=== PATIENT | female | born 1950 | race Caucasian/White ===

== ENCOUNTER 2020-06-09 12:31 | Outpatient (CLI) | payer MEDICARE, MEDICAID, SELFPAY ==
--- NOTE | ~2020-06-09 | CT_ITS ---
EXAMINATION: CT abdomen pelvis wo con DATE: 06/09/2020 13:04 INDICATION: Over 100 pound weight loss. History of panniculitis. TECHNIQUE: Computed tomography (CT) of the abdomen and pelvis was performed without intravenous contr ast. Automated exposure control and iterative reconstruction technique were employed. Exam dose: 130 4.11 mGy-cm total exam DLP. COMPARISON: 03/13/2018 CT chest abdomen pelvis FINDINGS: There multiple areas of discoid atelectasis and/or scarring at the lung bases. Cardiomegaly. No pericardial or pleural effusion. Coronary artery calcifications. There is surface nodularity of the liver consistent with cirrhosis. There is splenomegaly, the spleen measuring approximately 14.5 cm vertical dimension. No hepatic, splenic or adrenal space-occupying mass lesion is detected. There is evidence of either sludge or very small stones at the dependent aspect of the gallbladder. N o gallbladder wall thickening or pericholecystic fluid or fat stranding. No bile duct or pancreatic d uct dilatation. No pancreatic mass lesion or calcification. There is severe calcification of the abdominal aorta and extensive diffuse calcification of the aorti c branches, suggesting diabetes. No renal mass lesion or urinary tract calculus or hydroureteronephrosis is evident. The urinary bladd er is relatively evacuated, grossly unremarkable. Status post hysterectomy. There is postoperative change of the stomach, presumably related to gastric bypass surgery. Normal appendix. No bowel obstruction, bowel wall thickening, pneumatosis or intraperitoneal free air is detected. No intraperitoneal or retroperitoneal or pelvic mass lesion or adenopathy or ascites. There is subcutaneous fat stranding of the panniculus of the anterior abdominal wall, consistent with clinical indication of diverticulitis. There is extensive muscular atrophy of the chest and abdomina l and pelvic regions as well as proximal lower extremities. Prominent diffuse osteopenia. No suspicious osteolytic or osteoblastic lesions are noted. Degenerative changes of the thoracic and lumbar spine including moderate degenerative disease and mil d retrolisthesis at L1 to, degenerative change at the apophyseal joints with associated grade 1 anter olisthesis at L4-5, severe degenerative disc disease and minimal retrolisthesis at L5-S1. Compression screw and intramedullary frankie of the proximal right femur for intertrochanteric fracture. IMPRESSION: Cardiomegaly Bibasilar discoid atelectasis and/or scarring Cirrhosis, splenomegaly Suggestion of sludge or small stones in the dependent aspect of the gallbladder; consider gallbladder ultrasound for more definitive evaluation of the gallbladder Status post gastric bypass surgery Status post hysterectomy Severe extensive arterial calcifications suggesting diabetes Panniculitis Reviewed, dictated and finalized at [facility]. Reviewed, dictated and finalized at location [facility]. [facility] IMPRESSION: Cardiomegaly Bibasilar discoid atelectasis and/or scarring Cirrhosis, splenomegaly Suggestion of sludge or small stones in the dependent aspect of the gallbladder ; consider gallbladder ultrasound for more definitive evaluation of the gallbla dder Status post gastric bypass surgery Status post hysterectomy Severe extensive arterial calcifications suggesting diabetes Panniculitis
== END 2020-06-09 12:32 | disposition home or self-care (01) ==
PROVIDERS: PCP Family Medicine; Visit Provider Surgery Plastic and Reconstructive Surgery
DX: I51.7 Cardiomegaly (principal); I25.10 Atherosclerotic heart disease of native coronary artery without angina pectoris; R16.1 Splenomegaly, not elsewhere classified; Z90.710 Acquired absence of both cervix and uterus; M85.80 Other specified disorders of bone density and structure, unspecified site; M47.817 Spondylosis without myelopathy or radiculopathy, lumbosacral region; J98.11 Atelectasis; Z98.84 Bariatric surgery status; K74.60 Unspecified cirrhosis of liver
CPT/HCPCS: 74176

== ENCOUNTER 2020-06-30 13:10 | Emergency (ER) | payer MEDICARE, MEDICAID, SELFPAY ==
[2020-06-30] VITALS (17 sets, daily range): BP systolic 115–156; BP diastolic 56–97; PULSE 69–84; RESP 16–18; TEMP 36.1; O2SAT 95–100
--- NOTE | 2020-06-30 16:10 | ED.SKABFB ---
HPI - Skin/Abscess/Foreign Bdy General Chief complaint: Skin/Abscess/Foreign Body Stated complaint: wounds on buttocks Time Seen by Provider: 06/30/20 15:46 Source: patient Mode of arrival: ambulatory Limitations: no limitations History of Present Illness HPI narrative: This is a 69 year old female that presents to the ER for wounds present on the buttocks for the last week. Reports she had been seeing home healthcare for wound on her bottom, but was released recently. Reports her wounds again worsened which prompted her to be seen. Also reports diffuse itchy rash that has been present for the last 3 weeks. No known new medications, soaps or lotions. Denies fever. Related Data Home Medications Medication Instructions Recorded Confirmed albuterol sulfate 2 mg/5 mL oral 2 mg PO TID 08/18/19 syrup allopurinol 100 mg tablet 100 mg PO DAILY 08/18/19 ammonium lactate 12 % lotion 1 applic TOPICAL DAILY 08/18/19 aspirin 325 mg tablet 325 mg PO BID 08/18/19 cyanocobalamin (vitamin B-12) 1,000 mcg PO DAILY 08/18/19 1,000 mcg capsule levothyroxine 150 mcg tablet 150 mcg PO DAILY 08/18/19 midodrine 5 mg tablet 5 mg PO TID 08/18/19 nitroglycerin 0.4 % (w/w) rectal 1 inch RECTAL BID 08/18/19 ointment pantoprazole 40 mg tablet,delayed 40 mg PO QAM 08/18/19 release polyethylene glycol 3350 17 17 gm PO DAILY 08/18/19 gram/dose oral powder ropinirole 2 mg tablet,extended 2 mg PO DAILY 08/18/19 release 24 hr simvastatin 20 mg tablet 20 mg PO DAILY 08/18/19 tramadol 150 mg capsule 150 mg PO DAILY 08/18/19 24h,extended release(25-75) trazodone 150 mg tablet PO 08/18/19 Allergies Allergy/AdvReac Type Severity Reaction Status Date / Time adhesive tape Allergy Unknown BLISTERS Verified 06/30/20 13:25 gabapentin Allergy Unknown restless Verified 06/30/20 13:25 leg latex Allergy Unknown Pruritic Verified 06/30/20 13:25 rash zolpidem Allergy Unknown Other Verified 06/30/20 13:25 Review of Systems Review of Systems: Narrative: CONSTITUTIONAL: Denies fever SKIN: Reports rash and itching. All systems reviewed & are unremarkable except as noted in HPI and below PMFSH Past Medical History Medical History (Updated 06/30/20 @ 18:35 by Shannan Heller PA-C) Anemia Cardiac arrhythmia COPD (chronic obstructive pulmonary disease) Diabetes 5.2 Heart disease Hepatitis History of gout Kidney disease Osteoporosis Skin problem Stroke Thyroid cancer Surgical History Surgical History History of gastric bypass 2015 Status post-operative repair of closed fracture of right hip ORIF December 2018 Trigger finger 06/2019 Dr. Moore Family History Family History Father Diabetes mellitus Hypertension Mother Hypertension Family history of kidney disease Cancer Other Family history of arthritis Family history of malignant neoplasm Social History Social History Smoking status: Former smoker Smoking end date: 06/23/97 Alcohol intake: never Additional living arrangements comments: Granddaughter Rena Deal Additional occupation/education comments: Disabled Gender identity (if verbalized by the patient): Female Exam Narrative: Exam Narrative: GENERAL: Well-appearing, well-nourished, and in no acute distress. HEAD: Normocephalic, atraumatic. EYES: EOMI. CHEST: Clear to auscultation. No respiratory distress. No wheezes rales or rhonchi HEART: Regular rate and rhythm. No murmur heard. Normal peripheral pulses. EXTREMITIES: Normal range of motion. No edema. SKIN: Warm, dry. Scattered red papules on the chest, abdomen, and legs with excoriations. Stage 2 decubitus ulcers present on the buttocks bilaterally; no abnormal drainage or surrounding erythema to suggest infection NEURO: No focal deficits. Erin
[2020-06-30 16:32] LABS: Basophils Percent Auto 0.5 % (0.2-1.2); Eosinophils Absolute Auto 0.3 K/mm3 (0-0.3); Eosinophils Percent Auto 3.9 % (0-4.4); Hematocrit 29.4 % (37.0-47.0); Hemoglobin 9.3 g/dL (12.0-15.0); Immature Granulocyte Absolute 0.03 K/mm3 (0.00-0.031); Immature Granulocyte Percent A 0.4 % (0-0.5); Lymphocytes Absolute Auto 0.67 K/mm3 (0.9-3.2); Lymphocytes Percent Auto 8.9 % (18.3-44.2); Mean Corpuscular HGB Conc 31.6 g/dl (32-36); Mean Corpuscular Volume 104.3 fl (80-100); Mean Platelet Volume 10.2 fl (7.4-10.4); Monocytes Absolute Auto 0.5 K/mm3 (0.1-0.6); Monocytes Percent Auto 6.1 % (2.6-8.5); Neutrophils Percent Auto 80.2 % (45.5-73.1); Platelet Count Result 107 k/mm3 (150-375); Red Blood Count 2.82 M/mm3 (4.2-5.4); Red Cell Distribution Width 14.3 % (11.5-14.5); White Blood Count 7.5 K/mm3 (4.5-10.0)
[2020-06-30 16:46] LABS: Anion Gap 6 mmol/L (8-16); Blood Urea Nitrogen 23 mg/dL (7-17); CRP 8.3 mg/dL (<1.0); Calcium 7.8 mg/dL (8.4-10.2); Carbon Dioxide 34 mmol/L (22-30); Chloride 97 mmol/L (98-107); Estimated CRCL calculation 17 ml/min; Estimated Glomerular Filt Rate 17; Glucose 299 mg/dL (65-105); Phosphorus 4.6 mg/dL (2.5-4.5); Potassium 3.6 mmol/L (3.4-5.0); Sodium 137 mmol/L (137-145)
[2020-06-30] MEDS: diphenhydrAMINE HCl CAP 25 MG CAPSULE PO (17:43)
[2020-06-30] MEDS: ACETAMINOPHEN 500 MG TABLET 1000 MG PO (17:43)
--- NOTE | 2020-06-30 18:03 | PC.NURSE ---
Spoke with [facility] at [facility] request for x4 meplex dressing for pt to go home with. awaiting their arrival from [facility].
== END 2020-06-30 18:48 | disposition home or self-care (01) ==
PROVIDERS: Physician Assistant; Emergency Provider Emergency Medicine; PCP Family Medicine
DX: L89.322 Pressure ulcer of left buttock, stage 2 (principal); L89.312 Pressure ulcer of right buttock, stage 2; R21 Rash and other nonspecific skin eruption; D64.9 Anemia, unspecified; J44.9 Chronic obstructive pulmonary disease, unspecified; E11.22 Type 2 diabetes mellitus with diabetic chronic kidney disease; N18.6 End stage renal disease; M10.9 Gout, unspecified; M81.0 Age-related osteoporosis without current pathological fracture; Z86.73 Personal history of transient ischemic attack (TIA), and cerebral infarction without residual deficits; Z85.850 Personal history of malignant neoplasm of thyroid; I51.9 Heart disease, unspecified; Z79.82 Long term (current) use of aspirin; Z98.84 Bariatric surgery status; Z87.891 Personal history of nicotine dependence
CPT/HCPCS: 36415; 80048; 84100; 85025; 86140; 99283; A9270

== ENCOUNTER 2020-09-21 18:35 | Emergency (ER) | payer MEDICARE, MEDICAID, SELFPAY ==
[2020-09-21] VITALS (12 sets, daily range): BP systolic 145–189; BP diastolic 63–73; PULSE 78–85; RESP 18–20; TEMP 36.9; O2SAT 83–100
--- NOTE | ~2020-09-21 | XR_ITS ---
EXAMINATION: XR sacrum coccyx min 2V DATE: 09/21/2020 19:34 INDICATION: Tailbone pain. Fall. TECHNIQUE: 3 views of the sacrum and coccyx were obtained. COMPARISON: None. FINDINGS: There is 4 mm anterolisthesis of L4 on L5. There is severe lower lumbar spondylosis. No fra cture. There is internal fixation of right femur. There are suture anchors in right parasymphyseal pu bis. IMPRESSION: 1. No fracture. Reviewed, dictated and finalized at location [facility]. IMPRESSION: 1. No fracture.
--- NOTE | ~2020-09-21 | XR_ITS ---
EXAMINATION: XR shoulder RT min 2V DATE: 09/21/2020 19:34 INDICATION: Right shoulder weakness. TECHNIQUE: 4 views of right shoulder were obtained. COMPARISON: None. FINDINGS: There is superior subluxation of humeral head with respect to glenoid with narrowing of the subacromial space and remodeling of the acromion, consistent with chronic rotator cuff tear with cuf f arthropathy. There are likely changes of distal clavicle resection. There is moderate glenohumeral joint osteoarthritis, but the joint is not well profiled. IMPRESSION: 1. Chronic rotator cuff tear with cuff arthropathy. 2. Moderate glenohumeral joint osteoarthritis. Reviewed, dictated and finalized at location [facility].
--- NOTE | ~2020-09-21 | CT_ITS ---
EXAMINATION: CT brain wo con DATE: 09/21/2020 20:50 INDICATION: Headache. TECHNIQUE: Computed tomography (CT) of the head was performed without intravenous contrast. The mA wa s adjusted according to patient size. Iterative reconstruction technique was employed. The dose-lengt h product was 605.33 mGy-cm. COMPARISON: None FINDINGS: There are scattered areas of low attenuation in the cerebral white matter. There is no intr acranial hemorrhage, acute infarction, or abnormal intracranial mass lesion. The ventricles are unique l in size. The paranasal sinuses are clear. The orbits are normal. The mastoid air cells are normal. IMPRESSION: 1. Moderate nonspecific cerebral white matter disease, which likely represents chronic small vessel i schemic disease. Reviewed, dictated and finalized at location [facility]. IMPRESSION: 1. Moderate nonspecific cerebral white matter disease, which likely represents chronic small vessel ischemic disease.
--- NOTE | ~2020-09-21 | XR_ITS ---
EXAMINATION: XR foot LT min 3V DATE: 09/21/2020 19:34 INDICATION: Left foot pain. TECHNIQUE: 4 views of left foot were obtained. COMPARISON: None. FINDINGS: Bone alignment is normal. No fracture. There is diffuse osteopenia. There is mild osteoarth ritis of some the interphalangeal joints. There are enthesophytes at the posterior and plantar aspect s of calcaneal tuberosity. IMPRESSION: 1. Mild polyarticular osteoarthritis. Reviewed, dictated and finalized at location [facility].
--- NOTE | ~2020-09-21 | XR_ITS ---
EXAMINATION: XR lumbar spine 2-3V DATE: 09/21/2020 19:33 INDICATION: Low back pain. TECHNIQUE: 3 views of lumbar spine were obtained. COMPARISON: Lumbar spine radiographs 06/29/10 FINDINGS: There is 4 degrees levocurvature of thoracolumbar spine. There is 4 mm anterolisthesis of L 4 on L5. Vertebral body heights are normal. There is severely decreased disc height at L5-S1 with end plate remodeling. There is severe facet joint osteoarthritis in lower lumbar spine. Surgical clips in the right upper quadrant are likely from cholecystectomy. There is internal fixation of right femur. IMPRESSION: 1. Severe lower lumbar spondylosis. Reviewed, dictated and finalized at location [facility].
--- NOTE | ~2020-09-21 | XR_ITS ---
EXAMINATION: XR hip LT 2V w AP pelvis DATE: 09/21/2020 19:34 INDICATION: Left hip pain. TECHNIQUE: An anteroposterior view of the pelvis and 2 views of left hip were obtained. COMPARISON: None. FINDINGS: Bone alignment is normal. No acute fracture. There is an old healed fracture of proximal ri ght femur with internal fixation with antegrade intramedullary frankie, femoral head/neck screw, and cabl es. There is diffuse osteopenia. There is moderate osteoarthritis of the hips. There are suture ancho rs near right parasymphyseal pubis. IMPRESSION: 1. Moderate osteoarthritis of the hips. Reviewed, dictated and finalized at location [facility].
--- NOTE | 2020-09-21 20:33 | ED.GENADULT ---
HPI - General Adult General Chief complaint: Extremity Injury, Lower Stated complaint: FALL Time Seen by Provider: 09/21/20 19:02 Source: patient and EMS Mode of arrival: EMS Limitations: no limitations History of Present Illness HPI narrative: Patient 70 years old white female had a fall on her porch early this morning complaining of right shoulder, left hip and tailbone pain. Patient report hitting her head on the floor. Patient denies loss of consciousness. Patient denies any fever, chills, nausea, vomiting, chest pain, shortness of breath, abdominal pain or back pain. Related Data Home Medications Medication Instructions Recorded Confirmed albuterol sulfate 2 mg/5 mL oral 2 mg PO TID 08/18/19 syrup allopurinol 100 mg tablet 100 mg PO DAILY 08/18/19 ammonium lactate 12 % lotion 1 applic TOPICAL DAILY 08/18/19 aspirin 325 mg tablet 325 mg PO BID 08/18/19 cyanocobalamin (vitamin B-12) 1,000 mcg PO DAILY 08/18/19 1,000 mcg capsule levothyroxine 150 mcg tablet 150 mcg PO DAILY 08/18/19 midodrine 5 mg tablet 5 mg PO TID 08/18/19 nitroglycerin 0.4 % (w/w) rectal 1 inch RECTAL BID 08/18/19 ointment pantoprazole 40 mg tablet,delayed 40 mg PO QAM 08/18/19 release polyethylene glycol 3350 17 17 gm PO DAILY 08/18/19 gram/dose oral powder ropinirole 2 mg tablet,extended 2 mg PO DAILY 08/18/19 release 24 hr simvastatin 20 mg tablet 20 mg PO DAILY 08/18/19 tramadol 150 mg capsule 150 mg PO DAILY 08/18/19 24h,extended release(25-75) trazodone 150 mg tablet PO 08/18/19 Allergies Allergy/AdvReac Type Severity Reaction Status Date / Time adhesive tape Allergy Unknown BLISTERS Verified 06/30/20 13:25 gabapentin Allergy Unknown restless Verified 06/30/20 13:25 leg latex Allergy Unknown Pruritic Verified 06/30/20 13:25 rash zolpidem Allergy Unknown Other Verified 06/30/20 13:25 Review of Systems Review of Systems: Narrative: CONSTITUTIONAL: Denies fever, chills, or sweats. EYES: Denies visual changes, redness, or discharge. ENT: Denies rhinorrhea, congestion, sore throat, or otalgia. CARDIOVASCULAR: Denies chest pain, palpitations, or edema. RESPIRATORY: Denies cough or dyspnea. GASTROINTESTINAL: Denies abdominal pain, nausea, vomiting, or diarrhea. GENITOURINARY: Denies dysuria or hematuria. SKIN: Denies rash or itching. MUSCULOSKELETAL: Denies back pain, joint pain, or myalgia. NEUROLOGIC: Denies headache, numbness, or weakness. PSYCHIATRIC: Denies anxiety or depression. [facility] Past Medical History Medical History Anemia Cardiac arrhythmia COPD (chronic obstructive pulmonary disease) Diabetes 5.2 Heart disease Hepatitis History of gout Kidney disease Osteoporosis Skin problem Stroke Thyroid cancer Surgical History Surgical History History of gastric bypass 2015 Status post-operative repair of closed fracture of right hip ORIF December 2018 Trigger finger 06/2019 Dr. Moore Family History Family History Father Diabetes mellitus Hypertension Mother Hypertension Family history of kidney disease Cancer Other Family history of arthritis Family history of malignant neoplasm Social History Social History Smoking status: Former smoker Smoking end date: 06/23/97 Alcohol intake: never Additional living arrangements comments: Granddaughter Rena Deal Additional occupation/education comments: Disabled Gender identity (if verbalized by the patient): Female Exam Narrative: Exam Narrative: General appearance: Well-developed, well-nourished Skin: Normal color Head: Normocephalic, nontraumatic Eyes: Clear conjunctiva ENT: Oropharynx normal, ears normal, nose normal Neck: Supple, nontender Chest and respiratory: Airway patent, no respir
--- NOTE | 2020-09-21 22:12 | PC.NURSE ---
ems transport time is 0200
--- NOTE | 2020-09-21 22:15 | PC.NURSE ---
made contact with [facility] to transfer patient home. company declined. made contact with [employer]. eta [phone]
[2020-09-22 00:01] VITALS: BP 169/7; PULSE 77; RESP 18; O2SAT 97
--- NOTE | 2020-09-22 01:06 | PC.NURSE ---
patient found transportation home. choudhury has been cancelled
[2020-09-22 01:36] VITALS: BP 167/70; PULSE 72; RESP 18; O2SAT 96
== END 2020-09-22 01:15 | disposition home or self-care (01) ==
PROVIDERS: Emergency Provider Emergency Medicine; PCP Family Medicine
DX: S40.011A Contusion of right shoulder, initial encounter (principal); J44.9 Chronic obstructive pulmonary disease, unspecified; M10.9 Gout, unspecified; N28.9 Disorder of kidney and ureter, unspecified; M81.0 Age-related osteoporosis without current pathological fracture; I51.9 Heart disease, unspecified; E11.9 Type 2 diabetes mellitus without complications; Z85.850 Personal history of malignant neoplasm of thyroid; Z86.73 Personal history of transient ischemic attack (TIA), and cerebral infarction without residual deficits; Z79.82 Long term (current) use of aspirin; M47.816 Spondylosis without myelopathy or radiculopathy, lumbar region; M75.101 Unspecified rotator cuff tear or rupture of right shoulder, not specified as traumatic; M19.011 Primary osteoarthritis, right shoulder; M19.072 Primary osteoarthritis, left ankle and foot; M16.0 Bilateral primary osteoarthritis of hip; W19.XXXA Unspecified fall, initial encounter
CPT/HCPCS: 70450; 72100; 72220; 73030; 73502; 73630; 99284

== ENCOUNTER 2021-02-10 16:34 | Inpatient (IN) | payer MEDICARE, MEDICAID, SELFPAY ==
[2021-02-10] VITALS (10 sets, daily range): BP systolic 108–149; BP diastolic 32–101; PULSE 72–81; RESP 18–24; TEMP 36.1–36.8; O2SAT 92–100; BMI 40.4
--- NOTE | ~2021-02-10 | XR_ITS ---
EXAMINATION: XR chest 2V DATE: 02/10/2021 17:10 INDICATION: Substernal chest pain radiating to the right arm. TECHNIQUE: Frontal and lateral views of the chest were obtained. COMPARISON: Chest 2 views 07/01/2018, CT abdomen and pelvis 06/09/2020 FINDINGS: There is a small right pleural effusion. No pneumothorax. Cardiomegaly is noted. There is a left subclavian central venous catheter with tip in superior cavoatrial junction. IMPRESSION: 1. Small right pleural effusion. 2. Cardiomegaly. Reviewed, dictated and finalized at location A.
--- NOTE | 2021-02-10 16:58 | ECG_ITS ---
Measurements Intervals Tiro Rate: 82 P: 43 GA: 208 QRS: -28 QRSD: 101 T: 73 QT: 391 QTc: 457 Interpretive Statements SINUS RHYTHM WITH FIRST DEGREE AV BLOCK POOR R WAVE PROGRESSION, ANTERIOR LEADS BORDERLINE ST-T WAVE ABNORMALITY- HIGH LATERAL LEADS BASELINE ARTIFACT- I, II ,III, AVR, AVL, AVF, V2-V6 ABNORMAL ECG Electronically Signed On 02-11-2021 13:22:32 CDT by Zoran Drake D.O.
[2021-02-10 17:24] LABS: Basophils Absolute Auto 0.1 K/mm3 (0.0-0.1); Basophils Percent Auto 0.6 % (0.2-1.2); Eosinophils Absolute Auto 0.4 K/mm3 (0-0.3); Eosinophils Percent Auto 4.5 % (0-4.4); Hematocrit 34.4 % (37.0-47.0); Hemoglobin 9.9 g/dL (12.0-15.0); Immature Granulocyte Absolute 0.04 K/mm3 (0.00-0.031); Immature Granulocyte Percent A 0.5 % (0-0.5); Immature Platelet Fraction Pct 8.3 % (0.9-11.2); Lymphocytes Percent Auto 11.2 % (18.3-44.2); Mean Corpuscular HGB Conc 28.8 g/dl (32-36); Mean Corpuscular Hemoglobin 32.6 pg (26-34); Mean Corpuscular Volume 113.2 fl (80-100); Mean Platelet Volume 12.3 fl (7.4-10.4); Monocytes Absolute Auto 0.5 K/mm3 (0.1-0.6); Monocytes Percent Auto 6.2 % (2.6-8.5); Neutrophils Absolute Auto 6.2 K/mm3 (1.3-6.7); Platelet Count Result 107 k/mm3 (150-375); Red Blood Count 3.04 M/mm3 (4.2-5.4); Red Cell Distribution Width 15.6 % (11.5-14.5); White Blood Count 8.1 K/mm3 (4.5-10.0)
[2021-02-10 17:33] LABS: INR 1.2; Prothrombin Time 14.7 Seconds (11.1-14.7)
[2021-02-10 17:34] LABS: Partial Thromboplastin Time 36.8 SECONDS (22.3-36.8)
[2021-02-10 17:35] LABS: Anion Gap 11 mmol/L (8-16); Blood Urea Nitrogen 33 mg/dL (7-17); Carbon Dioxide 22 mmol/L (22-30); Chloride 108 mmol/L (98-107); Estimated CRCL calculation 11 ml/min; Estimated Glomerular Filt Rate 9; Glucose 161 mg/dL (65-110); Potassium 4.6 mmol/L (3.4-5.0); Sodium 141 mmol/L (137-145)
[2021-02-10] MEDS: ASPIRIN 81 MG CHEWABLE TABLET 324 MG PO (17:37)
--- NOTE | 2021-02-10 17:41 | ED.CHESTPAIN ---
HPI - Chest Pain General Chief Complaint: Chest Pain Stated Complaint: CP Time Seen by Provider: 02/10/21 17:01 History of Present Illness HPI narrative: 70 yo female with multiple medical problems including ESRD on dialysis, DM, htn, gout, depression, anxiety presents to the ED c/o chest pain. She reports sudden severe substernal pain at about 1545. This was associated with right arm heaviness. The pain got better with nitroglycerine. She has never had this pain before. Related Data Home Medications Medication Instructions Recorded Confirmed albuterol sulfate 2 mg/5 mL oral 2 mg PO TID 08/18/19 10/30/20 syrup allopurinol 100 mg tablet 100 mg PO DAILY 08/18/19 10/30/20 ammonium lactate 12 % lotion 1 applic TOPICAL DAILY 08/18/19 10/30/20 aspirin 325 mg tablet 325 mg PO BID 08/18/19 10/30/20 cyanocobalamin (vitamin B-12) 1,000 mcg PO DAILY 08/18/19 10/30/20 1,000 mcg capsule pantoprazole 40 mg tablet,delayed 40 mg PO QAM 08/18/19 10/30/20 release simvastatin 20 mg tablet 20 mg PO DAILY 08/18/19 10/30/20 trazodone 150 mg tablet PO 08/18/19 10/30/20 activated charcoal 260 mg capsule 520 mg PO ONCE 10/25/20 10/30/20 alprazolam 0.25 mg tablet 0.25 mg PO DAILY 10/25/20 10/30/20 diphenhydramine HCl 25 mg capsule 25 mg PO Q6H 10/25/20 10/30/20 econazole 1 % topical cream 1 applic TOPICAL BID 10/25/20 10/30/20 famotidine 20 mg tablet 20 mg PO DAILY 10/25/20 10/30/20 fluocinonide 0.05 % topical 1 applic TOPICAL BID 10/25/20 10/30/20 ointment insulin glargine 100 unit/mL 8 unit SUBCUT QPM ml 10/25/20 10/30/20 subcutaneous solution midodrine 5 mg tablet 5 mg PO TID 10/25/20 10/30/20 ondansetron HCl 4 mg tablet 4 mg PO Q8H 10/25/20 10/30/20 venlafaxine 75 mg capsule,extended 75 mg PO DAILY 10/25/20 10/30/20 release 24 hr ascorbic acid (vitamin C) 100 mg PO DAILY 02/10/21 calcium acetate(phosphat bind) mg 02/10/21 cholecalciferol (vitamin D3) 25 mcg PO DAILY 02/10/21 [Vitamin D3] doxycycline hyclate 02/10/21 levothyroxine 02/10/21 linagliptin [Tradjenta] mg 02/10/21 nitroglycerin 0.4 mg SUBLINGUAL ONCE 02/10/21 nystatin TOPICAL 02/10/21 omeprazole 40 mg PO DAILY 02/10/21 phenyleph-shark [id number] 1 applic RECTAL BID 02/10/21 [Preparation H] polyethylene glycol 3350 [Miralax] 17 g PO DAILY 02/10/21 pregabalin 02/10/21 ropinirole [Requip] See Rx Instructions .ROUTE .COMPLEX 02/10/21 simethicone 180 mg PO BID 02/10/21 Allergies Allergy/AdvReac Type Severity Reaction Status Date / Time adhesive tape Allergy Unknown BLISTERS Verified 02/10/21 18:58 gabapentin Allergy Unknown restless Verified 02/10/21 18:58 leg latex Allergy Unknown Pruritic Verified 02/10/21 18:58 rash zolpidem Allergy Unknown Other Verified 02/10/21 18:58 Review of Systems Review of Systems: All systems reviewed & are unremarkable except as noted in HPI and below Constitutional: Constitutional: Denies fever(s) Cardiovascular: Cardiovascular: Reports chest pain Respiratory: Respiratory: Reports dyspnea Gastrointestinal: Gastrointestinal: Denies abdominal pain Genitourinary: Genitourinary: Reports no additional female genitourinary complaints Musculoskeletal: Musculoskeletal: Reports back pain Neurologic: Reports weakness PMFSH Past Medical History Medical History Anemia Cardiac arrhythmia COPD (chronic obstructive pulmonary disease) Diabetes 5.2 Diabetic neuropathy Heart disease Hepatitis History of gout Kidney disease Osteoporosis Skin problem Stroke Thyroid cancer Surgical History Surgical History History of gastric bypass 2015 Status post-operative repair of closed fracture of right hip ORIF December 2018 Trigger finger 06/2019 Dr. Moore Family History Family History Father Diabetes mellitus Hypertension Mother
[2021-02-10 17:49] LABS: Troponin I 0.036 ng/mL (0.000-0.034)
[2021-02-10 19:54] LABS: Glucose Point of Care 134 mg/dl (65-105)
[2021-02-10 20:20] LABS: Troponin I 0.222 ng/mL (0.000-0.034)
--- NOTE | 2021-02-10 20:20 | ECG_ITS ---
Rate 73 NH 220 QRSd 93 QT 389 QTc 431 --Mccall-- P 52 QRS -27 T 69 SINUS RHYTHM WITH FIRST DEGREE AV BLOCK LOW QRS VOLTAGE IN PRECORDIAL LEADS BORDERLINE R WAVE PROGRESSION, ANTERIOR LEADS BASELINE ARTIFACT- II, III, AVR, AVF, V2-V6 ABNORMAL ECG Electronically Signed On 02-11-2021 13:22:40 CDT by Zoran DIXON
--- NOTE | 2021-02-10 21:02 | PM.IMHP ---
H&P: HPI History of Present Illness Date/Time: 02/10/21 21:02 Chief Complaint: Chest pain Narrative: This is a 70-year-old female with past medical history significant for end-stage renal disease on hemodialysis Friday, gout, type 2 diabetes mellitus, chronic panniculitis, restless leg syndrome dyslipidemia: Chronic pain, depression, diabetic peripheral neuropathy, osteoporosis, COPD. Patient presented to the emergency room due to chest pain localized to the right side of the chest with radiation to the shoulder and jaw on the right side patient called EMS she was brought by ambulance to the emergency room states that the pain lasted for roughly half hour, describes it as someone just jumped on my chest she denies any syncope near syncope, diaphoresis, has had some nausea but no vomiting, no abdominal pain, no fevers ,no rigors, no chills ,no cough, no sputum production. She has been compliant with her dialysis treatments last 1 was this last Friday. Preliminary workup has been significant for slightly elevation of troponin. Review of Systems Review of Systems: Chest pain Constitutional: Constitutional: Denies chills, Denies fever(s) and Denies malaise Eyes: Eyes: Denies change in vision ENT: Denies dysphagia, Denies nasal congestion, Denies nasal discharge, Denies nasal obstruction and Denies odynophagia Cardiovascular: Cardiovascular: Reports chest pain, Reports radiating jaw, neck or arm pain and Denies palpitations Respiratory: Respiratory: Denies cough Gastrointestinal: Gastrointestinal: Denies abdominal pain, Denies diarrhea, Reports nausea and Denies vomiting Genitourinary: Genitourinary: Reports no additional female genitourinary complaints Musculoskeletal: Musculoskeletal: Reports muscle weakness Integumentary/Breasts: Skin/Breast: Reports skin ulcer Comments: Left lower extremity Neurologic: Denies focal weakness and Denies Sensory deficit (Neuro) Psychiatric: Psychiatric: Reports no additional psychiatric complaints Endocrine: Endocrine: Reports no additional endocrine complaints Hematologic/Lymphatic: Hematologic/Lymphatic: Reports no additional hematologic/lymphatic complaints Allergic/Immunologic: Allergic/Immunologic: Reports no additional allergic/immunologic complaints [facility] Past Medical History Medical History (Updated 02/10/21 @ 21:21 by Henri Oh MD) Anemia Cardiac arrhythmia COPD (chronic obstructive pulmonary disease) Diabetes 5.2 Diabetic neuropathy Heart disease Hepatitis History of gout Kidney disease Osteoporosis Skin problem Stroke Thyroid cancer Surgical History Surgical History History of gastric bypass 2015 Status post-operative repair of closed fracture of right hip ORIF December 2018 Trigger finger 06/2019 Dr. Moore Family History Family History Father Diabetes mellitus Hypertension Mother Hypertension Family history of kidney disease Cancer Other Family history of arthritis Family history of malignant neoplasm Social History Social History Smoking end date: 06/23/97 Alcohol intake: never Additional living arrangements comments: Granddaughter Rena Deal Additional occupation/education comments: Disabled Gender identity (if verbalized by the patient): Female Meds Home Medications and Allergies Home Medications Medication Instructions Recorded Confirmed Type albuterol sulfate 2 mg/5 mL oral 2 mg PO TID 08/18/19 10/30/20 History syrup allopurinol 100 mg tablet 100 mg PO DAILY 08/18/19 10/30/20 History ammonium lactate 12 % lotion 1 applic TOPICAL DAILY 08/18/19 10/30/20 History aspirin 325 mg tablet 325 mg PO BID 08/18/19 10/30/20 History cyanocobalamin (vitamin B-12) 1,000 mcg PO DAILY 08/18/19 10/30/20 History 1,000 mcg caps
[2021-02-10] MEDS: NITROGLYCERIN OINTMENT 1 INCH DOSE 0.5 INCH TRANSDERM (21:10)
--- NOTE | 2021-02-10 22:25 | PC.NURSE ---
This patient, Yolanda Conway, was admitted to IMU Room 214-01 on 02/10/21 at 2200. Patient/family oriented to hospital policies and general routines including ID bracelet, bed and alarms, visiting hours, pain management, procedures, bathroom and other care routines, personal items, smoking policy, room service/diet, and visiting hours. Information on how to activate the Rapid Response Team has been discussed. Patient/Family are encouraged to report perceived risks to care and to ask questions if they do not understand what they are told or what they should do.
[2021-02-11] VITALS (28 sets, daily range): BP systolic 105–151; BP diastolic 45–91; PULSE 72–87; RESP 14–29; TEMP 36.1–36.4; O2SAT 90–100
[2021-02-11] MEDS: rOPINIRole HCL 1 MG TABLET 2 MG BY MOUTH (00:52)
[2021-02-11] MEDS: traZODone HCL 50 MG TABLET 100 MG PO (00:52)
[2021-02-11] MEDS: traMADol HCL (*CRX) 50 MG TABLET PO (00:52)
[2021-02-11] MEDS: NITROGLYCERIN OINTMENT 1 INCH DOSE 0.5 INCH TRANSDERM (00:53)
[2021-02-11] MEDS: NITROGLYCERIN SL 0.4 MG TABLET SUBLINGUAL ×2 (04:13→04:55)
[2021-02-11] MEDS: HEPARIN SOD/D5W 100 UNITS/ML 25,000 UNITS/250 ML BAG 8 UNITS IV CONT (04:19)
[2021-02-11] MEDS: HEPARIN SODIUM 5,000 UNITS/ML VIAL 4000 UNITS IV PUSH (04:19)
[2021-02-11 04:56] LABS: Glucose Point of Care 110 mg/dl (65-105)
[2021-02-11] MEDS: ONDANSETRON HCL ODT 4 MG TABLET PO (04:56)
[2021-02-11] MEDS: NITROGLYCERIN OINTMENT 1 INCH DOSE TRANSDERM (05:02)
[2021-02-11] MEDS: LEVOTHYROXINE SODIUM 100 MCG TABLET PO (06:07)
[2021-02-11] MEDS: LEVOTHYROXINE SODIUM 75 MCG TABLET PO (06:07)
[2021-02-11 06:10] LABS: Basophils Absolute Auto 0.1 K/mm3 (0.0-0.1); Basophils Percent Auto 0.6 % (0.2-1.2); Eosinophils Absolute Auto 0.5 K/mm3 (0-0.3); Hematocrit 31.4 % (37.0-47.0); Hemoglobin 9.3 g/dL (12.0-15.0); Immature Granulocyte Absolute 0.05 K/mm3 (0.00-0.031); Immature Granulocyte Percent A 0.5 % (0-0.5); Lymphocytes Absolute Auto 1.27 K/mm3 (0.9-3.2); Mean Corpuscular HGB Conc 29.6 g/dl (32-36); Mean Corpuscular Hemoglobin 32.4 pg (26-34); Mean Corpuscular Volume 109.4 fl (80-100); Monocytes Absolute Auto 0.6 K/mm3 (0.1-0.6); Monocytes Percent Auto 5.9 % (2.6-8.5); Neutrophils Absolute Auto 7.3 K/mm3 (1.3-6.7); Platelet Count Result 107 k/mm3 (150-375); Red Blood Count 2.87 M/mm3 (4.2-5.4); Red Cell Distribution Width 15.4 % (11.5-14.5); White Blood Count 9.8 K/mm3 (4.5-10.0)
[2021-02-11 06:16] LABS: INR 1.4; Prothrombin Time 16.6 Seconds (11.1-14.7)
[2021-02-11 07:00] LABS: Partial Thromboplastin Time > 200.0 SECONDS (22.3-36.8)
[2021-02-11 07:21] LABS: Anisocytosis 2+ (NORMAL); Microcytosis 1+ (NORMAL)
[2021-02-11 07:55] LABS: Glucose Point of Care 112 mg/dl (65-105)
[2021-02-11] MEDS: PREGABALIN (*CRX) 75 MG CAPSULE 150 MG BY MOUTH (08:24)
[2021-02-11] MEDS: CHOLECALCIFEROL 1,000 UNITS TABLET 1000 UNITS PO (08:24)
[2021-02-11] MEDS: PANTOPRAZOLE 40 MG TABLET PO (08:25)
[2021-02-11] MEDS: CALCIUM ACETATE 667 MG TABLET PO ×2 (08:25→16:14)
[2021-02-11] MEDS: allopurinoL 100 MG TABLET PO (08:25)
[2021-02-11] MEDS: ASCORBIC ACID 125 MG TABLET PO (08:25)
[2021-02-11] MEDS: VENLAFAXINE HCL XR 75 MG CAP.ER.24H PO (08:25)
[2021-02-11] MEDS: ASPIRIN 81 MG ENTERIC TABLET PO (08:25)
[2021-02-11] MEDS: MICONAZOLE NITRATE 2% CREAM 30 GM TUBE 1 APPLIC TOPICAL ×2 (08:26→16:15)
[2021-02-11] MEDS: TOLNAFTATE 1% POWDER 45 GM BTL 1 APPLIC TOPICAL ×2 (08:26→16:15)
[2021-02-11] MEDS: MIDODRINE HCL 2.5 MG TABLET 5 MG PO (08:26)
--- NOTE | 2021-02-11 08:49 | PM.IMPN ---
Progress Note: A&P Assessment and Plan (1) Non-ST elevation [place] (NSTEMI): Code(s): I21.4 - Non-ST elevation (NSTEMI) myocardial infarction Status: Acute Assessment and Plan: Noted rising troponin Heparin infusion Nitroglycerin for pain Cardiology evaluated this morning, appreciate help, plan for coronary angiography today (2) End-stage renal disease on hemodialysis: Code(s): N18.6 - End stage renal disease; Z99.2 - Dependence on renal dialysis Status: Acute Assessment and Plan: Dialyzes Friday and Friday Nephrology consult, appreciate help Left IJ tunneled dialysis catheter is her access recently awaiting graft Low BP on HD with midodrine needed (3) Thrombosis of arteriovenous graft due to arteriovenous access device for hemodialysis: Code(s): T82.868A - Thrombosis due to vascular prosthetic devices, implants and grafts, initial encounter Status: Acute Assessment and Plan: Primary site was on the left forearm which has failed Right arm new graft Tunneled dialysis catheter is her current access (4) Diabetic neuropathy: Code(s): E11.40 - Type 2 diabetes mellitus with diabetic neuropathy, unspecified Status: Inactive Assessment and Plan: Continue gabapentin (5) Panniculitis: Code(s): M79.3 - Panniculitis, unspecified Status: Acute Assessment and Plan: Local care (6) COPD (chronic obstructive pulmonary disease): Code(s): J44.9 - Chronic obstructive pulmonary disease, unspecified Status: Acute Assessment and Plan: Not actively wheezing (7) Wheelchair dependence: Code(s): Z99.3 - Dependence on wheelchair Status: Acute Assessment and Plan: Patient has home health with physical therapy (8) Chronic pain: Code(s): G89.29 - Other chronic pain Status: Acute Assessment and Plan: Continue home meds (9) T2DM (type 2 diabetes mellitus): Code(s): E11.9 - Type 2 diabetes mellitus without complications Status: Acute Assessment and Plan: Accu-Cheks AC and HS Continue Lantus Insulin sliding scale Subjective Date/time seen: 02/11/21 08:49 She did have recurrence of chest pain overnight and given nitro which helped the pain. this AM she continues to have intermittent retrosternal chest pain at rest. She is hemodynamically stable. Afebrile. Review of Systems Review of Systems: All systems reviewed & are unremarkable except as noted in HPI and below Exam Narrative: Gen: Alert, NAD Abd: Soft, NT, ND Heart: RRR Lungs: CTAB Ext: 1+ bilateral lower extremity edema/lymphedema Left IJ dialysis perm cath Objective Data Vital Signs Vital Signs: Vital Signs - 24 hr 02/10/21 16:41 02/10/21 16:59 02/10/21 17:30 Temperature 97.3 F L 97.8 F Pulse Rate 80 75 75 Respiratory Rate 18 22 H Blood Pressure 112/63 108/62 Pulse Oximetry 100 100 99 02/10/21 18:30 02/10/21 19:30 02/10/21 20:30 Temperature 98.1 F Pulse Rate 72 76 79 Respiratory Rate 19 22 H 24 H Blood Pressure 130/54 L 128/56 L 121/68 Pulse Oximetry 96 96 98 02/10/21 21:20 02/10/21 21:48 02/10/21 22:00 Temperature 97.3 F L 98.3 F 97 F L Pulse Rate 73 78 74 Respiratory Rate 19 19 18 Blood Pressure 127/60 122/101 H 149/32 H Pulse Oximetry 98 97 02/10/21 23:58 02/11/21 00:00 02/11/21 02:00 Temperature 97.7 F Pulse Rate 81 79 75 Respiratory Rate 20 Blood Pressure 139/55 L Pulse Oximetry 92 02/11/21 03:43 02/11/21 04:00 02/11/21 06:00 Temperature 97.3 F L Pulse Rate 77 74 75 Respiratory Rate 16 Blood Pressure 151/62 H Pulse Oximetry 98 02/11/21 07:24 Temperature 96.9 F L Pulse Rate 77 Respiratory Rate 16 Blood Pressure 126/50 L Pulse Oximetry 98 Meds/Results Medications: Active Medications Generic Name Dose Route Start Last Admin Trade Name Freq PRN Reason Stop Dose Admin Albuterol 2 puff 02/10/21 23:33 [place]
--- NOTE | 2021-02-11 08:53 | PM.CNCAR ---
Assessment and Plan Additional Plan NSTEMI, persistent chest pain, despite NTG patch, plan [facility] today, ASA, Statin, ticagrelor, History of Present Illness History of Present Illness Consult date/time: 02/11/21 08:53 Consult reason: chest pain Reason For Visit: Chest pain Narrative: patient presented with acute chest pain pressure like started yesterday afternoon and has been sever recurrent, radiates to left arm, improved with NTG SL for few minutes then recurrent. SHe had Hx of CAD and prior PCi in [facility] in 2004. She had Hx of PVD and f/u with Dr Kenny in heart and vascular services. She ESRD on HD. Review of Systems Review of Systems: All systems reviewed & are unremarkable except as noted in HPI and below PMFSH Past Medical History Medical History (Updated 02/10/21 @ 21:21 by Henri Oh MD) Anemia Cardiac arrhythmia COPD (chronic obstructive pulmonary disease) Diabetes 5.2 Diabetic neuropathy Heart disease Hepatitis History of gout Kidney disease Osteoporosis Skin problem Stroke Thyroid cancer Surgical History Surgical History History of gastric bypass 2015 Status post-operative repair of closed fracture of right hip ORIF December 2018 Trigger finger 06/2019 Dr. Moore Family History Family History (Updated 02/10/21 @ 22:48 by Alcira Carlisle RN) Father Diabetes mellitus Hypertension Family history of arthritis Mother Family history of kidney disease Cancer Hypertension Family history of arthritis Family history of malignant neoplasm Sibling Diabetes mellitus Family history of kidney disease Sibling Diabetes mellitus Social History Social History Smoking packs per day: 0.5 Smoking cigarettes per day: 10.0 Years smoked: 1 Smoking pack-years: 0.50 Smoking status: Former smoker Tobacco type: cigarettes Smoking end date: 06/23/97 Alcohol intake: never Substance use: never Additional living arrangements comments: Granddaughter eRna Deal Additional occupation/education comments: Disabled Gender identity (if verbalized by the patient): Female Spiritual care concerns: No Meds Home Medications and Allergies Home Medications Medication Instructions Recorded Confirmed Type allopurinol 100 mg tablet 100 mg PO DAILY 08/18/19 02/10/21 History simvastatin 20 mg tablet 20 mg PO DAILY 08/18/19 02/10/21 History trazodone 150 mg tablet 150 mg PO HS 08/18/19 02/10/21 History activated charcoal 260 mg capsule 520 mg PO DAILY PRN 10/25/20 02/10/21 History alprazolam 0.25 mg tablet 0.25 mg PO Q8H PRN 10/25/20 02/10/21 History insulin glargine 100 unit/mL 8 unit SUBCUT HS ml 10/25/20 02/10/21 History subcutaneous solution midodrine 5 mg tablet 5 mg PO TID 10/25/20 02/10/21 History ondansetron HCl 4 mg tablet 4 mg PO Q8H PRN 10/25/20 02/10/21 History venlafaxine 75 mg capsule,extended 75 mg PO DAILY 10/25/20 02/10/21 History release 24 hr tramadol 50 mg tablet 50 mg PO Q6H PRN #30 tablet 01/29/21 02/10/21 Rx albuterol sulfate 2 puff INHALATION TID PRN 02/10/21 02/10/21 History ascorbic acid (vitamin C) 100 mg PO DAILY 02/10/21 02/10/21 History aspirin 81 mg PO DAILY 02/10/21 02/10/21 History calcium acetate(phosphat bind) 1,334 mg PO TIDWM 02/10/21 02/10/21 History cholecalciferol (vitamin D3) 25 mcg PO DAILY 02/10/21 02/10/21 History [Vitamin D3] levothyroxine 175 mcg PO DAILY 02/10/21 02/10/21 History linagliptin [Tradjenta] 5 mg PO DAILY 02/10/21 02/10/21 History nitroglycerin 0.4 mg SUBLINGUAL Q5M PRN 02/10/21 02/10/21 History nystatin 1 applic TOPICAL BID 02/10/21 02/10/21 History nystatin [Nystop] 1 applic TOPICAL BID 02/10/21 02/10/21 History omeprazole 40 mg PO DAILY 02/10/21 02/10/21 History oxycodone-acetaminophen 1 tablet PO BID PRN 02/10/21 02/10/21 History phenyleph-shark [id number] 1 applic RECTAL BID PRN 02/10/21
--- NOTE | 2021-02-11 10:32 | WPDCARDPROC ---
Cardiac Cath Procedure Note Date of procedure:: 02/11/21 Performing physician:: Cali Doyle MD Assessment and Plan Additional Plan PROCEDURE: 1. LHC and coronary angiogram without LV gram 2. IFR to left main and proximal LAD 3. Balloon angioplasty to D2 INDICATION: NSTEMI HISTORY: 70 Yrs old female with persistent chest pain and rising cardiac enzymes PROCEDURE DETAILS Consent obtained, time out done, patient prepped and draped in sterile fashion Sedation done with moderate sedation using versed 1 mg and fentanyl 50 mcg and tolerated well, Supervised by me and nurse. Access to rt groin with modified Seldinger technique and US/Fluoroscopic guidance, 5 F sheath was inserted Coronary angiogram was done in different views using JL4 and JR4 AV crossed with AL 1 and straight tip wire HEMODYNAMIC FINDINGS Aorta 110/70 LV 125/70 Gradient across AV peak to peak is 15 to 20 mmHg CORONARY ANGIOGRAM 1. Left main: distal left main disease 50 to 60% calcified stenosis extending into ostial LAD and LCX 2. LAD ostial 50 to 60% stenosis, proximal LAD with 50% stenosis, patent stent in mid LAD, distal LAD with 60% stenosis. D2 is intermediate size vessel with subtotal occlusion and KISHA 1 flow. Possible culprit lesion of NSTEMI 3. LCX. Ostial LCX with 90% stenosis extending to involve origin of high intermediate size OM1. Mid LCX with 70% stenosis before continuing as large OM branch 4. RCA: dominant vessel that gives rPDA and rPL. rpDA has ostial 40% stenosis. IFR TO Left main Guide catheter: CLS 3.5 Anticoagulation with heparin to target ACT > 250 sec IFR [place] wire was advanced into Left main and equalization was done then advanced into mid LAD and IFR measured as 0.86. Pull back was done and revealed 2 levels of stenosis one in proximal LAD and one in distal left main. Wire removed and angiogram revealed no dissecton, perforation and KISHA 3 flow in LAD Decision was to proceed with angioplasty of Diagonal as culprit and refer to surgery ANGIOPLASTY to proximal D2 [place] wire was advanced into D2 and angiolpasty was done with Emerge 2.0 * 12 balloon at 12 YUNIEL Pre-intervention: 99% (subtotal occlusion), bifurcation lesion, not treated previously, KISHA 1 flow Post-intervention: 70% stenosis, KISHA 3 flow COMPLICATION: None RECOMMENDATION Complex 2 vessel CAD with distal Left main disease, proximal LAD, D2 and ostial LCX disease s/p angioplasty to improve flow to diagonal while waiting for cardiac surgery evaluation LCX lesion is complex and will likely need intervention with left main bifurcation Transfer for cardiac surgery consult vs high risk PCI Resume heparin in 4 hours, cont ASA, hold P2Y12 inhibitors, statin, B-maryam, NTG infusion for pain control TTE
--- NOTE | 2021-02-11 11:18 | PC.NURSE ---
Report given to SARA De.
[2021-02-11] MEDS: NITROGLYCERIN/D5W 200 MCG/ML 50 MG/250 ML BTL IV CONT (12:14)
--- NOTE | 2021-02-11 12:14 | WPDCNINT ---
Assessment and Plan Assessment and plan (1) Non-ST elevation [place] (NSTEMI): Code(s): I21.4 - Non-ST elevation (NSTEMI) myocardial infarction Status: Acute Assessment and Plan: Status post cardiac catheterization on 02/11/2021 with complex 2 vessel coronary artery disease with distal left main disease, proximal LAD, D diagnosed to and ostial left circumflex disease. Status post angioplasty to improve flow to the diagonal. Patient has been accepted to [facility] for surgical evaluation for CABG or high-risk PCI. -cardiology following the patient Patient has been accepted by CT surgeon Dr. Rodriguez, Awaiting bed at [facility] (2) End-stage renal disease on hemodialysis: Code(s): N18.6 - End stage renal disease; Z99.2 - Dependence on renal dialysis Status: Acute Assessment and Plan: On hemodialysis Friday with disease and Fridays (3) T2DM (type 2 diabetes mellitus): Code(s): E11.9 - Type 2 diabetes mellitus without complications Status: Acute Assessment and Plan: Blood sugars are stable -the Accu-Cheks and sliding scale insulin and Lantus Additional Plan Discussed with patient updated with her condition plan of care. She is aware that she will be transferring to [facility] for possible a coronary artery bypass for high-risk PCI. Code status: Full code Critical care time spent: 43 minutes This dictation may have been done utilizing a voice recognition system. Attempts have been made to correct errors. However, there may be uncorrected grammatical, spelling, and recognition errors present. Due to a high probability of clinically significant, life threatening deterioration, the patient required my highest level of preparedness to intervene emergently and I personally spent this critical care time directly and personally managing the patient. This critical care time included obtaining a history; examining the patient; pulse oximetry; ordering and review of studies; arranging urgent treatment with development of a management plan; evaluation of patient's response to treatment; frequent reassessment; and discussions with other providers. It was exclusive of separately billable procedures and treating other patients and teaching time. Please see Assessment and Plan section and the rest of the note for further information on patient assessment and treatment [facility] Consult Note Consult date: 02/11/21 Time Seen: 10:41 Reason for consult: NSTEMI status post cardiac catheterization with multivessel disease, patient has been accepted to [facility] for surgical evaluation versus high-risk PCI HPI: Yolanda Conway is a 70 year old female with past medical history of anemia, cardiac arrhythmias, COPD, diabetes, diabetic neuropathy, some coronary artery disease, hepatitis, history of gout, end-stage renal disease on dialysis, Friday and Friday, history of thyroid cancer, history of skin cancer ED on 07/12/2019 with complains of chest pain with radiation to the shoulder and jaw which improved with sublingual nitroglycerin. Patient was admitted on the medical floor troponins were 0.0306, 0.22, 1.13. Patient was taken to [facility] [place] on 02/11/2021, complex 2 vessel coronary artery disease with distal left main disease, proximal LAD, D diagnosed to and ostial left circumflex disease. Status post angioplasty to improve flow to the diagonal. Patient has been accepted to [facility] for surgical evaluation for CABG or high-risk PCI. Patient was transferred to the ICU for further management for she can be transferred to the outside hospital. Patient seen and examined, is awake, alert, oriented, nonfocal. States that chest pain is 2/10 in intensity, denies any shortness breath, abdominal pain, nausea, vomiting at this time. Patient is complaining of feeling cold, I placed 2 more blankets over her which main feels comfortable. Patient complains o
[2021-02-11 15:25] LABS: Partial Thromboplastin Time 47.3 SECONDS (22.3-36.8)
[2021-02-11] MEDS: SIMVASTATIN 20 MG TABLET PO (16:13)
[2021-02-11 16:21] LABS: Glucose Point of Care 107 mg/dl (65-105)
--- NOTE | 2021-02-11 18:35 | PM.TDS ---
Transfer Discharge Sum: Prov Provider Date of admission: 02/11/21 07:50 Primary care physician: Drew Faustin, Admitting clinician: Kwame Hudson MD Consults: 02/10/21 Consult to Physician Routine Comment: Consulting Provider: Cecilia Dykes Reason for consultation: NSTEMI Has provider been notified: Yes 02/11/21 Consult to Physician Routine Comment: Consulting Provider: Adri Aldridge Reason for consultation: esrd for friday Has provider been notified: Yes Consult to Physician Routine Comment: Consulting Provider: Chris Hahn Reason for consultation: post cath management Has provider been notified: Yes Consult to Physician Routine Comment: Consulting Provider: Thai Abraham worm picker/MD group to consult: Nephrology, to see pt Friday Reason for consultation: ESRD MWF pt Has provider been notified: Yes DS: Admitting Diagnosis Discharge Date 02/11/21 Admitting Diagnosis Chest pain DS: Discharge Diagnosis Discharge Diagnosis (1) T2DM (type 2 diabetes mellitus): Code(s): E11.9 - Type 2 diabetes mellitus without complications Status: Acute (2) End-stage renal disease on hemodialysis: Code(s): N18.6 - End stage renal disease; Z99.2 - Dependence on renal dialysis Status: Acute (3) Non-ST elevation [place] (NSTEMI): Code(s): I21.4 - Non-ST elevation (NSTEMI) myocardial infarction Status: Acute Transfer Discharge Sum: Med Medications Active and Home Medications: Home Medications allopurinol 100 mg tablet 100 mg PO DAILY 08/18/19 [History Confirmed 02/10/21] simvastatin 20 mg tablet 20 mg PO DAILY 08/18/19 [History Confirmed 02/10/21] trazodone 150 mg tablet 150 mg PO HS 08/18/19 [History Confirmed 02/10/21] activated charcoal 260 mg capsule 520 mg PO DAILY PRN 10/25/20 [History Confirmed 02/10/21] alprazolam 0.25 mg tablet 0.25 mg PO Q8H PRN 10/25/20 [History Confirmed 02/10/21] insulin glargine 100 unit/mL subcutaneous solution 8 unit SUBCUT HS ml 10/25/20 [History Confirmed 02/10/21] midodrine 5 mg tablet 5 mg PO TID 10/25/20 [History Confirmed 02/10/21] ondansetron HCl 4 mg tablet 4 mg PO Q8H PRN 10/25/20 [History Confirmed 02/10/21] venlafaxine 75 mg capsule,extended release 24 hr 75 mg PO DAILY 10/25/20 [History Confirmed 02/10/21] tramadol 50 mg tablet 50 mg PO Q6H PRN #30 tablet 01/29/21 [Rx Confirmed 02/10/21] albuterol sulfate 2 puff INHALATION TID PRN 02/10/21 [History Confirmed 02/10/21] ascorbic acid (vitamin C) 100 mg PO DAILY 02/10/21 [History Confirmed 02/10/21] aspirin 81 mg PO DAILY 02/10/21 [History Confirmed 02/10/21] calcium acetate(phosphat bind) 1,334 mg PO TIDWM 02/10/21 [History Confirmed 02/10/21] cholecalciferol (vitamin D3) [Vitamin D3] 25 mcg PO DAILY 02/10/21 [History Confirmed 02/10/21] levothyroxine 175 mcg PO DAILY 02/10/21 [History Confirmed 02/10/21] linagliptin [Tradjenta] 5 mg PO DAILY 02/10/21 [History Confirmed 02/10/21] nitroglycerin 0.4 mg SUBLINGUAL Q5M PRN 02/10/21 [History Confirmed 02/10/21] nystatin 1 applic TOPICAL BID 02/10/21 [History Confirmed 02/10/21] nystatin [Nystop] 1 applic TOPICAL BID 02/10/21 [History Confirmed 02/10/21] omeprazole 40 mg PO DAILY 02/10/21 [History Confirmed 02/10/21] oxycodone-acetaminophen 1 tablet PO BID PRN 02/10/21 [History Confirmed 02/10/21] phenyleph-shark [id number] [Preparation H] 1 applic RECTAL BID PRN 02/10/21 [History Confirmed 02/10/21] polyethylene glycol 3350 [Miralax] 17 g PO DAILY 02/10/21 [History Confirmed 02/10/21] pregabalin 25 mg PO DAILY 02/10/21 [History Confirmed 02/10/21] ropinirole [Requip] See Rx Instructions .ROUTE .COMPLEX 02/10/21 [History Confirmed 02/10/21] simethicone 180 mg PO BID PRN 02/10/21 [History Confirmed 02/10/21] Transfer Discharge Sum: Hosp Hospital Course Hospital course: Yolanda Seymourore is a 70 year old female past medical history of end-stage renal disease on in-center hemodialysis MWF schedule, gout, type 2 diab
--- NOTE | 2021-02-11 20:34 | PC.NURSE ---
Report had been given on day shift. All patient belongings gathered. Patient leaving [address]. Report given. Adria notified of patient depature.
[2021-02-12 14:48] LABS: Activated Clotting Time 296 SEC (74-137)
[2021-02-12 14:48] LABS: Activated Clotting Time 147 SEC (74-137)
== END 2021-02-11 20:45 | disposition short-term general hospital (02) | DRG 250 ==
LOC: ANHED 20:39 → ANHIMU 20:56 → ANHICU 02-13 15:00 → ANHIMU 02-13 15:00
PROVIDERS: Internal Medicine Cardiovascular Disease; Admitting Provider Internal Medicine; Emergency Provider Emergency Medicine; PCP Family Medicine; Visit Provider Internal Medicine Interventional Cardiology
PROC: 4A023N7 Measurement of Cardiac Sampling and Pressure, Left Heart, Percutaneous Approach (ICD-10-PCS; CPT 93452; principal; 2021-02-11 08:55)
PROC: 4A033BC Measurement of Arterial Pressure, Coronary, Percutaneous Approach (ICD-10-PCS; CPT 93571; 2021-02-11 08:55)
PROC: 02703ZZ Dilation of Coronary Artery, One Artery, Percutaneous Approach (ICD-10-PCS; CPT 92920; 2021-02-11 08:55)
PROC: 02703ZZ Dilation of Coronary Artery, One Artery, Percutaneous Approach (ICD-10-PCS; 2021-02-11 08:55)
DX: I21.4 Non-ST elevation (NSTEMI) myocardial infarction (principal); N18.6 End stage renal disease; K86.1 Other chronic pancreatitis; E11.22 Type 2 diabetes mellitus with diabetic chronic kidney disease; D64.9 Anemia, unspecified; E11.42 Type 2 diabetes mellitus with diabetic polyneuropathy; M81.0 Age-related osteoporosis without current pathological fracture; J44.9 Chronic obstructive pulmonary disease, unspecified; E78.5 Hyperlipidemia, unspecified; F32.9 Major depressive disorder, single episode, unspecified; G89.29 Other chronic pain; M79.3 Panniculitis, unspecified; G25.81 Restless legs syndrome; Z98.84 Bariatric surgery status; Z99.2 Dependence on renal dialysis; Z85.850 Personal history of malignant neoplasm of thyroid; Z86.73 Personal history of transient ischemic attack (TIA), and cerebral infarction without residual deficits; Z99.3 Dependence on wheelchair; I25.10 Atherosclerotic heart disease of native coronary artery without angina pectoris
CPT/HCPCS: 36415; 71046; 80048; 82948; 84484; 85025; 85055; 85610; 85730; 92920; 93005; 93458; 93571; 99291; A9270; C1725; C1760; C1769; C1887; C1894; G0269; G0378; J1644; J2250; J3010; J7040

== ENCOUNTER 2021-03-15 13:48 | Outpatient (CLI) | payer MEDICARE, MEDICAID, SELFPAY ==
--- NOTE | ~2021-03-15 | MR_ITS ---
EXAMINATION: MR hip LT wo con DATE: 03/15/2021 15:37 INDICATION: Left hip pain and osteoarthritis. TECHNIQUE: Magnetic resonance imaging (MRI) of the left hip was performed without intravenous contra st. Sequences included full-field axial PD-weighted FS FSE and T1-weighted FSE, coronal of the pelvis with PD-weighted FS FSE, small field of view of the left hip with axial PD-weighted FS FSE, sagittal PD-weighted FS FSE and coronal PD weighted FS FSE. Additional radial T1-weighted FGR oriented orthog onal to the acetabular rim were obtained for evaluation of the labrum. COMPARISON: None FINDINGS: Evaluation is limited by motion artifact on multiple sequences most prominent on the fat-saturated an d large [id number] axial sequences. Bones/labrum/cartilage: Alignment is normal. Magnetic field artifact associated with antegrade intramedullary frankie, femoral ne ck dynamic compression screw and cerclage wire fixation obscures the proximal to mid right femur. No fracture, avascular necrosis or pathologic marrow replacing process. Mild osteoarthritis at the left hip. The left acetabular labrum appears largely replaced by marginal osteophytes along the rim of the acetabulum. Lower lumbar spondylosis with severe disc height loss at L5-S1. Moderate lower lumbar fa cet osteoarthritis. Fluid: Symmetric physiologic amount of fluid within both hip joints. Soft tissues: There is symmetric moderate fatty atrophy of the bilateral gluteal musculature. Asymmetric moderate r ight and mild left atrophy of the iliopsoas muscles. Less severe mild fatty atrophy of the musculatur e of the bilateral thighs. The iliopsoas, gluteal and proximal hamstring tendons are normal. There is also atrophy and marked laxity of the anterior abdominal wall musculature with ascites and multiple loops of bowel in the normally distended anterior pelvic wall which extends anterior and inferior to the pubic symphysis. Panniculitis with inflammatory stranding and edema in the more caudal suprapubic subcutaneous fat. Bladder is decompressed. The uterus is not identified and has likely been surgical ly resected. No pathologically enlarged pelvic/inguinal lymphadenopathy. IMPRESSION: 1. Panniculitis. 2. Mild left hip osteoarthritis with chronic degeneration of the left acetabular labrum which is larg skylar been replaced by acetabular osteophytes. 3. Extensive and moderate fatty atrophy of the musculature of the pelvis with mild fatty atrophy of t he musculature of the proximal thighs. 4. Ascites. Reviewed, dictated and finalized at location A. IMPRESSION: 1. Panniculitis. 2. Mild left hip osteoarthritis with chronic degeneration of the left acetabula r labrum which is largely been replaced by acetabular osteophytes. 3. Extensive and moderate fatty atrophy of the musculature of the pelvis with m ild fatty atrophy of the musculature of the proximal thighs. 4. Ascites.
== END 2021-03-15 13:49 | disposition home or self-care (01) ==
LOC: ANHIMG 13:58
PROVIDERS: PCP Family Medicine; Visit Provider Nurse Practitioner Family
DX: M47.817 Spondylosis without myelopathy or radiculopathy, lumbosacral region (principal); M79.3 Panniculitis, unspecified; N81.84 Pelvic muscle wasting
CPT/HCPCS: 73721

== ENCOUNTER 2021-03-17 10:55 | Emergency (ER) | payer MEDICARE, MEDICAID, SELFPAY ==
--- NOTE | ~2021-03-17 | XR_ITS ---
EXAMINATION: XR chest 2V EXAM DATE: 03/17/2021 12:25 INDICATION: Transient Alteration Of Awareness, Hallucinations . TECHNIQUE: Frontal and lateral projections of the chest obtained and reviewed. Comparison is made to prior examination from 02/10/2021. FINDINGS: There is a left-sided subclavian dialysis catheter. Coronary artery stent. Cardiomegaly. Th ere is small to moderate left pleural effusion, probably small right pleural effusion. Some adjacent left basilar atelectasis. Pneumonia not excludable. No pneumothorax. The bones are osteopenic. There are bony degenerative changes. Left pleural effusion, airspace disease has progressed compared to prior study. IMPRESSION: 1. Small to moderate left, small pleural effusions. 2. Left basilar atelectasis. Pneumonia not excludable. Reviewed, dictated and finalized at location A.
[2021-03-17 11:01] VITALS: BP 138/58; PULSE 75; RESP 23; TEMP 36.6; O2SAT 100
[2021-03-17 12:52] VITALS: BP 122/56; PULSE 79; RESP 18; O2SAT 98
[2021-03-17 12:57] LABS: Basophils Absolute Auto 0.1 K/mm3 (0.0-0.1); Basophils Percent Auto 0.5 % (0.2-1.2); Eosinophils Absolute Auto 0.3 K/mm3 (0-0.3); Eosinophils Percent Auto 2.9 % (0-4.4); Hematocrit 31.1 % (37.0-47.0); Hemoglobin 9.4 g/dL (12.0-15.0); Immature Granulocyte Absolute 0.06 K/mm3 (0.00-0.031); Immature Granulocyte Percent A 0.6 % (0-0.5); Lymphocytes Percent Auto 10.2 % (18.3-44.2); Mean Corpuscular HGB Conc 30.2 g/dl (32-36); Mean Corpuscular Volume 109.1 fl (80-100); Mean Platelet Volume 11.3 fl (7.4-10.4); Monocytes Absolute Auto 0.8 K/mm3 (0.1-0.6); Monocytes Percent Auto 8.4 % (2.6-8.5); Neutrophils Absolute Auto 7.6 K/mm3 (1.3-6.7); Neutrophils Percent Auto 77.4 % (45.5-73.1); Platelet Count Result 144 k/mm3 (150-375); Red Blood Count 2.85 M/mm3 (4.2-5.4); Red Cell Distribution Width 17.6 % (11.5-14.5); White Blood Count 9.8 K/mm3 (4.5-10.0)
[2021-03-17 13:06] LABS: Anion Gap 8 mmol/L (8-16); Blood Urea Nitrogen 35 mg/dL (7-17); Calcium 8.6 mg/dL (8.4-10.2); Carbon Dioxide 27 mmol/L (22-30); Chloride 103 mmol/L (98-107); Estimated CRCL calculation 15 ml/min; Estimated Glomerular Filt Rate 14; Glucose 106 mg/dL (65-110); Potassium 3.7 mmol/L (3.4-5.0); Sodium 138 mmol/L (137-145)
[2021-03-17 13:07] LABS: Ammonia < 9 umol/L (9-30)
--- NOTE | 2021-03-17 13:38 | ED.RECABL ---
HPI - Recheck/Abnormal Lab/Rx General Chief Complaint: Recheck/Abnormal Lab/Rx Stated Complaint: abnormal labs Time Seen by Provider: 03/17/21 11:42 Source: patient, EMS, RN notes reviewed and old records reviewed History of Present Illness HPI narrative: Patient was referred from her care facility for evaluation of agitation and elevated ammonia patient ports she has no complaints. Patient reports she sometimes feels foggy depending on the prescriptions her care facility gives her and feels like her change in mental status is related to the medication she receives. She reports she feels fine now denies any focal areas of pain such as chest pain or shortness of breath denies any recent fevers. Shorts been eating and drinking well. Denies any head injuries focal numbness or weakness Related Data Home Medications Medication Instructions Recorded Confirmed allopurinol 100 mg tablet 100 mg PO DAILY 08/18/19 02/10/21 simvastatin 20 mg tablet 20 mg PO DAILY 08/18/19 02/10/21 trazodone 150 mg tablet 150 mg PO HS 08/18/19 02/10/21 activated charcoal 260 mg capsule 520 mg PO DAILY PRN 10/25/20 02/10/21 alprazolam 0.25 mg tablet 0.25 mg PO Q8H PRN 10/25/20 02/10/21 insulin glargine 100 unit/mL 8 unit SUBCUT HS ml 10/25/20 02/10/21 subcutaneous solution midodrine 5 mg tablet 5 mg PO TID 10/25/20 02/10/21 ondansetron HCl 4 mg tablet 4 mg PO Q8H PRN 10/25/20 02/10/21 venlafaxine 75 mg capsule,extended 75 mg PO DAILY 10/25/20 02/10/21 release 24 hr albuterol sulfate 2 puff INHALATION TID PRN 02/10/21 02/10/21 ascorbic acid (vitamin C) 100 mg PO DAILY 02/10/21 02/10/21 aspirin 81 mg PO DAILY 02/10/21 02/10/21 calcium acetate(phosphat bind) 1,334 mg PO TIDWM 02/10/21 02/10/21 cholecalciferol (vitamin D3) 25 mcg PO DAILY 02/10/21 02/10/21 [Vitamin D3] levothyroxine 175 mcg PO DAILY 02/10/21 02/10/21 linagliptin [Tradjenta] 5 mg PO DAILY 02/10/21 02/10/21 nitroglycerin 0.4 mg SUBLINGUAL Q5M PRN 02/10/21 02/10/21 nystatin 1 applic TOPICAL BID 02/10/21 02/10/21 nystatin [Nystop] 1 applic TOPICAL BID 02/10/21 02/10/21 omeprazole 40 mg PO DAILY 02/10/21 02/10/21 oxycodone-acetaminophen 1 tablet PO BID PRN 02/10/21 02/10/21 phenyleph-shark [id number] 1 applic RECTAL BID PRN 02/10/21 02/10/21 [Preparation H] polyethylene glycol 3350 [Miralax] 17 g PO DAILY 02/10/21 02/10/21 pregabalin 25 mg PO DAILY 02/10/21 02/10/21 ropinirole [Requip] See Rx Instructions .ROUTE .COMPLEX 02/10/21 02/10/21 simethicone 180 mg PO BID PRN 02/10/21 02/10/21 Allergies Allergy/AdvReac Type Severity Reaction Status Date / Time adhesive tape Allergy Unknown BLISTERS Verified 03/17/21 11:05 gabapentin Allergy Unknown restless Verified 03/17/21 11:05 leg latex Allergy Unknown Pruritic Verified 03/17/21 11:05 rash zolpidem Allergy Unknown Other Verified 03/17/21 11:05 Review of Systems Review of Systems: CONSTITUTIONAL: Denies fever, chills, or sweats. EYES: Denies visual changes, redness, or discharge. ENT: Denies rhinorrhea, congestion, sore throat, or otalgia. CARDIOVASCULAR: Denies chest pain, palpitations, or edema. RESPIRATORY: Denies cough or dyspnea. GASTROINTESTINAL: Denies abdominal pain, nausea, vomiting, or diarrhea. GENITOURINARY: Patient does not produce urine SKIN: Denies rash or itching. MUSCULOSKELETAL: Denies back pain, joint pain, or myalgia. NEUROLOGIC: Denies headache, numbness, dizziness, or weakness. PSYCHIATRIC: Denies anxiety or depression. All systems reviewed & are unremarkable except as noted in HPI and below PMFSH Past Medical History Medical History Anemia Cardiac arrhythmia COPD (chronic obstructive pulmonary disease) Diabetes 5.2 Diabetic neuropathy Heart disease Hepatitis History of gout Kidney disease Osteoporosis Skin problem Stroke Thyroid cancer Surgical History Surgical History History of gastri
--- NOTE | 2021-03-17 13:49 | PC.NURSE ---
[facility] accepted return to [facility] ETA 1600 Trip #[id number]
--- NOTE | 2021-03-17 14:00 | PC.NURSE ---
[facility] called for update at this time, report given that patient is coming back by EMS after being discharged from the hospital.
[2021-03-17 14:49] VITALS: BP 144/60; PULSE 71; RESP 18; O2SAT 98
== END 2021-03-17 15:00 ==
PROVIDERS: Emergency Provider Emergency Medicine; PCP Family Medicine
DX: Z04.89 Encounter for examination and observation for other specified reasons (principal); J44.9 Chronic obstructive pulmonary disease, unspecified; E11.40 Type 2 diabetes mellitus with diabetic neuropathy, unspecified; I51.9 Heart disease, unspecified; M10.9 Gout, unspecified; M81.0 Age-related osteoporosis without current pathological fracture; N28.9 Disorder of kidney and ureter, unspecified; Z86.73 Personal history of transient ischemic attack (TIA), and cerebral infarction without residual deficits; Z85.850 Personal history of malignant neoplasm of thyroid; Z79.82 Long term (current) use of aspirin; Z98.84 Bariatric surgery status; Z87.891 Personal history of nicotine dependence; Z79.4 Long term (current) use of insulin; R91.8 Other nonspecific abnormal finding of lung field
CPT/HCPCS: 36415; 71046; 80048; 82140; 85025; 99283

== ENCOUNTER 2021-03-31 19:30 | Inpatient (IN) | payer MEDICARE, MEDICAID, SELFPAY ==
--- NOTE | ~2021-03-31 | XR_ITS ---
EXAMINATION: XR chest 1V portable EXAM DATE: 04/05/2021 09:33 INDICATION: Pneumonia. TECHNIQUE: Portable AP frontal chest x-ray was obtained. Comparison is made to prior examination from 03/31/2021. FINDINGS: There is segmental left basilar atelectasis or pneumonia. Smaller amount of right basilar a irspace disease. Compared to prior study, airspace disease has improved. No pneumothorax or sizable p leural effusion. Borderline heart size. Coronary artery stent on the left side. Left subclavian appro ach dialysis catheter. The bones are osteopenic. There are bony degenerative changes. IMPRESSION: Bibasilar airspace disease with interval improvement. Reviewed, dictated and finalized at location A.
--- NOTE | ~2021-03-31 | XR_ITS ---
EXAMINATION: XR abdomen/kub 1V EXAM DATE: 04/05/2021 12:17 INDICATION: Abdominal pain. TECHNIQUE: Frontal projection of the upper abdomen, frontal projection lower abdomen/pelvis for inter pretation. There is no prior study for comparison. FINDINGS: There is expected amount of colonic stool and gas. No small bowel dilation, nonobstructiv e bowel gas pattern. There are no suspicious calcifications identified. There is no organomegaly suspected. There are cholecystectomy clips. Right hip femoral hardware . Some patchy left basilar a telectasis and pneumonia correlating with prior CT. There are bony degenerative changes. IMPRESSION: Subsegmental left basilar, subsegmental right basilar pneumonia and atelectasis. Nonobstr uctive bowel gas pattern. Reviewed, dictated and finalized at location A. IMPRESSION: Subsegmental left basilar, subsegmental right basilar pneumonia and atelectasis. Nonobstructive bowel gas pattern.
--- NOTE | ~2021-03-31 | XR_ITS ---
EXAMINATION: XR chest 1V portable DATE: 03/31/2021 20:36 INDICATION: Cough TECHNIQUE: frontal view of the chest was obtained. COMPARISON: Chest radiograph dated 03/17/2021 FINDINGS: Consolidation with air bronchograms in the bilateral infrahilar regions consistent with pneumonia. Bl unting at the left costophrenic angle consistent with small pleural effusion. No pneumothorax or righ t-sided pleural effusion. Cardiomegaly. Coronary artery stenting. Large-bore left subclavian central venous catheter with distal tip at the superior cavoatrial junction. Additional surgical clips at epi gastric region. Visualized bones and soft tissues are unremarkable. IMPRESSION: 1. Centimeters in the bilateral infrahilar regions concerning for pneumonia with differential includi ng atelectasis. 2. Small left pleural effusion. 3. Cardiomegaly. Reviewed, dictated and finalized at location A. IMPRESSION: 1. Centimeters in the bilateral infrahilar regions concerning for pneumonia wit h differential including atelectasis. 2. Small left pleural effusion. 3. Cardiomegaly.
--- NOTE | ~2021-03-31 | CT_ITS ---
EXAMINATION: CT abdomen pelvis wo con DATE: 04/01/2021 03:27 INDICATION: Abdominal pain, fever, diarrhea TECHNIQUE: Computed tomography (CT) of the abdomen and pelvis was performed without intravenous contr ast. Automated exposure control and iterative reconstruction technique were employed. Exam dose: 125 1.28 mGy-cm total exam DLP. COMPARISON: 06/09/2020 CT abdomen pelvis FINDINGS: There is prominent atelectasis and consolidation with air bronchograms in the lower lobes, left greater than right. There is approximately 2 x 4.7 cm loculated pleural fluid collection in the posterolateral right lowe r thorax. There is mild left pleural effusion. No pericardial effusion. Small sliding hiatal hernia. Postoperative change of the stomach. There is gallbladder distention. There are probable numerous small stones in the dependent aspects of the gallbladder. No bile duct or pancreatic duct dilatation. There is surface nodularity of the liver, consistent with cirrhosis. Splenomegaly. No hepatic, splenic, pancreatic, and adrenal or renal space-occupying mass lesion is evident. There is severe calcification of the abdominal aorta and throughout the celiac trunk and hepatic and splenic arteries, superior mesenteric and inferior mesenteric artery and extensive calcification of t he renal arteries including intraparenchymal renal arteries throughout the kidneys. No abdominal aort ic aneurysm. No intraperitoneal or retroperitoneal or pelvic mass lesion or adenopathy. Diverticulosis of the colon; no CT evidence of diverticulitis. No bowel obstruction or intraperitonea l free air. The urinary bladder is unremarkable. Status post hysterectomy. Degenerative changes at the apophyseal joints with associated grade 1 anterolisthesis at L4-5. There is severe degenerative disc disease at L5-S1. No suspicious osteolytic or osteoblastic lesions are noted. Hardware in the proximal right femur. IMPRESSION: Bibasilar consolidations, pleural effusion Cirrhosis, splenomegaly, mild ascites Small sliding hiatal hernia Diverticulosis of the colon Severe atherosclerotic calcification Reviewed, dictated and finalized at Location [facility]. Reviewed, dictated and finalized at location A.
--- NOTE | ~2021-03-31 | US_ITS ---
EXAMINATION: US right upper quadrant EXAM DATE: 04/03/2021 08:51 INDICATION: Gallstones. TECHNIQUE: Multiple grayscale and Doppler images of the abdomen right upper quadrant were obtained (b y a technologist who performed the scan) and subsequently reviewed. There is no prior study for pato chavez. FINDINGS: The pancreatic head and body are normal in appearance. The pancreatic tail is not visualized. There is nodular liver contour, consistent with cirrhosis. There are no focal liver lesions identified. There is no evidence of intrahepatic biliary duct dilation. Portal venous flow was seen in the hepa topedal, normal direction and has normal Doppler waveform. No right-sided hydronephrosis. Common bile duct measures 7 mm, which is normal. Gallbladder is distended with echogenic debris insid e. There is small pericholecystic and perihepatic fluid which is nonspecific in the setting of ascite s and cirrhosis. No gallbladder wall thickening. Technologist performing exam reports patient did not demonstrate sonographic Douglas's sign. Please note that this sign is less reliable in patients who have received pain medication. IMPRESSION: 1. Distended gallbladder with debris. No wall thickening or sonographic Douglas's sign. 2. Small amount of perihepatic and pericholecystic fluid. Reviewed, dictated and finalized at location A. IMPRESSION: 1. Distended gallbladder with debris. No wall thickening or sonographic Douglas 's sign. 2. Small amount of perihepatic and pericholecystic fluid.
[2021-03-31 19:36] VITALS: BP 99/72; PULSE 106; RESP 25; TEMP 37.4; O2SAT 95
--- NOTE | 2021-03-31 19:44 | ECG_ITS ---
Measurements Intervals [place] Rate: 107 P: 26 ND: 212 QRS: -11 QRSD: 86 T: 53 QT: 300 QTc: 400 Interpretive Statements SINUS TACHYCARDIA WITH FIRST DEGREE AV BLOCK POSSIBLE LEFT ATRIAL ENLARGEMENT CANNOT RULE OUT SEPTAL INFARCT, AGE INDETERMINATE BASELINE ARTIFACT- I, II, III, AVR, AVL, AVF ABNORMAL ECG Electronically Signed On 04-01-2021 7:34:41 CDT by Zoran Drake D.O.
--- NOTE | 2021-03-31 19:46 | ED.GENADULT ---
HPI - General Adult General Chief complaint: Fever Stated complaint: fever, chills, sob, diarrhea Time Seen by Provider: 03/31/21 19:38 History of Present Illness HPI narrative: Patient is 70-year-old female who presents the emergency department with chief complaint of body aches and fever. Patient is from a local jail where they tested her today for COVID-19 with a rapid test that was negative. Patient is end-stage renal disease does not produce urine and reports that she goes to dialysis Friday. The patient states she completed a normal run yesterday reports that she has had chills body aches and just not feeling well since. Patient states symptoms or not improved by anything or they worsened by nothing reports that she has noticed no redness at her dialysis access site which is a left subclavian tunneled permacath. Related Data Home Medications Medication Instructions Recorded Confirmed allopurinol 100 mg tablet 100 mg PO DAILY 08/18/19 02/10/21 simvastatin 20 mg tablet 20 mg PO DAILY 08/18/19 02/10/21 trazodone 150 mg tablet 150 mg PO HS 08/18/19 02/10/21 activated charcoal 260 mg capsule 520 mg PO DAILY PRN 10/25/20 02/10/21 alprazolam 0.25 mg tablet 0.25 mg PO Q8H PRN 10/25/20 02/10/21 insulin glargine 100 unit/mL 8 unit SUBCUT HS ml 10/25/20 02/10/21 subcutaneous solution midodrine 5 mg tablet 5 mg PO TID 10/25/20 02/10/21 ondansetron HCl 4 mg tablet 4 mg PO Q8H PRN 10/25/20 02/10/21 venlafaxine 75 mg capsule,extended 75 mg PO DAILY 10/25/20 02/10/21 release 24 hr albuterol sulfate 2 puff INHALATION TID PRN 02/10/21 02/10/21 ascorbic acid (vitamin C) 100 mg PO DAILY 02/10/21 02/10/21 aspirin 81 mg PO DAILY 02/10/21 02/10/21 calcium acetate(phosphat bind) 1,334 mg PO TIDWM 02/10/21 02/10/21 cholecalciferol (vitamin D3) 25 mcg PO DAILY 02/10/21 02/10/21 [Vitamin D3] levothyroxine 175 mcg PO DAILY 02/10/21 02/10/21 linagliptin [Tradjenta] 5 mg PO DAILY 02/10/21 02/10/21 nitroglycerin 0.4 mg SUBLINGUAL Q5M PRN 02/10/21 02/10/21 nystatin 1 applic TOPICAL BID 02/10/21 02/10/21 nystatin [Nystop] 1 applic TOPICAL BID 02/10/21 02/10/21 omeprazole 40 mg PO DAILY 02/10/21 02/10/21 oxycodone-acetaminophen 1 tablet PO BID PRN 02/10/21 02/10/21 phenyleph-shark [id number] 1 applic RECTAL BID PRN 02/10/21 02/10/21 [Preparation H] polyethylene glycol 3350 [Miralax] 17 g PO DAILY 02/10/21 02/10/21 pregabalin 25 mg PO DAILY 02/10/21 02/10/21 ropinirole [Requip] See Rx Instructions .ROUTE .COMPLEX 02/10/21 02/10/21 simethicone 180 mg PO BID PRN 02/10/21 02/10/21 Allergies Allergy/AdvReac Type Severity Reaction Status Date / Time adhesive tape Allergy Unknown BLISTERS Verified 03/17/21 11:05 gabapentin Allergy Unknown restless Verified 03/17/21 11:05 leg latex Allergy Unknown Pruritic Verified 03/17/21 11:05 rash zolpidem Allergy Unknown Other Verified 03/17/21 11:05 Review of Systems Review of Systems: A 10 system review of systems was completed on the patient and is negative except for what is stated in the HPI. Nursing and ancillary documentation was reviewed. [facility] Past Medical History Medical History Anemia Cardiac arrhythmia COPD (chronic obstructive pulmonary disease) Diabetes 5.2 Diabetic neuropathy Heart disease Hepatitis History of gout Kidney disease Osteoporosis Skin problem Stroke Thyroid cancer Surgical History Surgical History History of gastric bypass 2015 Status post-operative repair of closed fracture of right hip ORIF December 2018 Trigger finger 06/2019 Dr. Moore Family History Family History Father Diabetes mellitus Hypertension Family history of arthritis Mother Family history of kidney disease Cancer Hypertension Family history of arthritis Family his
[2021-03-31] MEDS: SODIUM CHLORIDE 0.9% IV 1,000 ML 500 ML IV CONT (20:22)
[2021-03-31 20:31] LABS: Basophils Absolute Auto 0.1 K/mm3 (0.0-0.1); Basophils Percent Auto 0.3 % (0.2-1.2); Eosinophils Absolute Auto 0.1 K/mm3 (0-0.3); Eosinophils Percent Auto 0.4 % (0-4.4); Hematocrit 31.7 % (37.0-47.0); Hemoglobin 9.2 g/dL (12.0-15.0); Immature Granulocyte Absolute 0.06 K/mm3 (0.00-0.031); Immature Granulocyte Percent A 0.4 % (0-0.5); Lymphocytes Percent Auto 2.5 % (18.3-44.2); Mean Corpuscular Hemoglobin 32.6 pg (26-34); Mean Corpuscular Volume 112.4 fl (80-100); Mean Platelet Volume 11.7 fl (7.4-10.4); Monocytes Absolute Auto 1.1 K/mm3 (0.1-0.6); Monocytes Percent Auto 6.7 % (2.6-8.5); Neutrophils Absolute Auto 14.2 K/mm3 (1.3-6.7); Neutrophils Percent Auto 89.7 % (45.5-73.1); Nucleated Red Blood Cells Perc 0.1 % (0.0-0.2); Platelet Count Result 123 k/mm3 (150-375); Red Blood Count 2.82 M/mm3 (4.2-5.4); Red Cell Distribution Width 18.4 % (11.5-14.5); White Blood Count 15.8 K/mm3 (4.5-10.0)
[2021-03-31 20:39] LABS: Lactic Acid Reflex 2.1 mmol/L (0.7-2.1)
[2021-03-31 20:41] LABS: INR 1.3; Magnesium 1.8 mg/dL (1.6-2.3); Prothrombin Time 15.8 Seconds (11.1-14.7)
[2021-03-31 20:42] LABS: Partial Thromboplastin Time 36.7 SECONDS (22.3-36.8)
[2021-03-31 20:43] LABS: Alanine Aminotransferase 14 U/L (4-35); Albumin Level 2.3 g/dL (3.5-5.1); Alkaline Phosphatase 160 U/L (38-126); Anion Gap 8 mmol/L (8-16); Aspartate Amino Transferase 21 U/L (14-36); Bilirubin,Total 0.7 mg/dL (0.2-1.3); Blood Urea Nitrogen 25 mg/dL (7-17); CRP 5.1 mg/dL (<1.0); Calcium 8.2 mg/dL (8.4-10.2); Carbon Dioxide 24 mmol/L (22-30); Chloride 106 mmol/L (98-107); Estimated CRCL calculation 16 ml/min; Estimated Glomerular Filt Rate 14; Glucose 99 mg/dL (65-110); Lipase 19 U/L (23-300); Potassium 4.1 mmol/L (3.4-5.0); Sodium 138 mmol/L (137-145)
[2021-03-31 20:52] LABS: Troponin I 0.018 ng/mL (0.000-0.034)
[2021-03-31 21:04] LABS: Hypochromasia 1+ (NORMAL); Poikilocytosis 1+ (NORMAL)
--- NOTE | 2021-03-31 22:09 | PM.IMHP ---
H&P: HPI History of Present Illness Date/Time: 03/31/21 22:09 Chief Complaint: Fever Narrative: 70-year-old female with a past medical history of end-stage renal disease on hemodialysis Friday, CHF, COPD, coronary artery disease, obstructive sleep apnea, sarcoidosis and diabetes mellitus who presented to the ER from [facility] via EMS due to fever and lethargy. She reports that on Friday when she returned from her hemodialysis she developed severe chills and rigors. She had a fever up to 104 per her report.. She had no associated increased shortness of breath, cough, congestion, nausea or vomiting. She was vaccinated against COVID with the [employer] vaccine last year. She occasionally has some lightheadedness with standing but this is unchanged from baseline. She does have some baseline orthopnea that is unchanged. She reports new onset of diarrhea approximately 4 days ago. She states that she tried to get the nursing staff to stop giving her the MiraLax and lactulose that the and says she takes every day. They would not listen to her and continue to give it to her. She had 5 frankly watery bowel movements on Friday and 1 large ordered bowel movement today. She reports some left lower quadrant abdominal tenderness that is worse when she feels like she has have a bowel movement. She has not had any hematochezia or melena. She denies any recent antibiotic use. She denies any chest pain. She does have a small ulceration to her left lateral knee that does not appear to be infected. The alf staff reported some erythema to the patient's left subclavian dialysis catheter site however on evaluation the patient's catheters no evidence of infection. She denies any sore throat, nasal congestion or rhinorrhea. She has not produced urine in at least 5 years. She does have a distant history of pseudomonal bacteremia back in 2018. She reports that she was hospitalized 5 weeks ago for an experimental percutaneous valve procedure where she had 2 valves worked on at the same time. She does not know exactly what was done during the procedure. She has been feeling better after the procedure. She reports that she had amputation of her 1st and 4th distal PIP joint of the left hand from what sounds like possible thrombotic showering from her AV fistula. Subsequently or AV fistula was removed January 2021. She reports chronic discoloration of her toes and currently her left 2nd through 5th toes appear dusky and black a color at the bases. She reports that this is chronic and unchanged. She reports that sometimes the toes on the right foot will appear similar. She reports that her feet do not feel cold because she has not had any sensation her feet for years. She does have palpable left pedal pulse but I am unable to palpate her right pedal pulse. She has poor cap refill to the great toe of the left foot but adequate cap refill to the small toes the left foot. She denies any pain to her feet. She reports that her glucoses have been between 90 and 110 for the most part. Review of Systems Review of Systems: 12 systems were reviewed with pertinent positives and negatives per HPI. Except as documented in the HPI, all other systems were reviewed and are negative. 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 Mild concentric left ventricular hypertrophy. Pseudonormal diastolic dysfunction grade 2. Mild left atrial enlargement is. Mild mitral valve regurgitation. His mild aortic valve regurgitation. Mild pulmonary hypertension with RVSP of 4045. Mild tr
[2021-03-31 22:35] VITALS: O2SAT 97
[2021-03-31 23:28] LABS: Reflex Lactic Acid Yes or No Add Lactic
[2021-03-31 23:34] VITALS: BP 98/82; PULSE 95; RESP 20; TEMP 36.2; O2SAT 98
[2021-03-31 23:35] VITALS: BMI 32.3
[2021-04-01] VITALS (17 sets, daily range): BP systolic 96–114; BP diastolic 35–51; PULSE 74–101; RESP 16–20; TEMP 35.9–36.4; O2SAT 92–100; BMI 37.8
[2021-04-01 00:58] LABS: Lactic Acid 1.7 mmol/L (0.7-2.1)
[2021-04-01] MEDS: IPRATROPIUM BR 0.02% INH SOLN 0.5 MG/2.5 ML VIAL INHALATION ×4 (02:52→20:39)
[2021-04-01 03:58] LABS: Glucose Point of Care 124 mg/dl (65-105)
[2021-04-01] MEDS: oxyCODONE/ACETAMINOPHEN (*CRX) 5-325 MG TABLET 1 TABLET PO ×2 (04:04→21:34)
[2021-04-01 06:25] LABS: Hematocrit 30.8 % (37.0-47.0); Hemoglobin 9.2 g/dL (12.0-15.0); Mean Corpuscular HGB Conc 29.9 g/dl (32-36); Mean Corpuscular Hemoglobin 33.7 pg (26-34); Mean Corpuscular Volume 112.8 fl (80-100); Mean Platelet Volume 11.6 fl (7.4-10.4); Platelet Count Result 100 k/mm3 (150-375); Red Blood Count 2.73 M/mm3 (4.2-5.4); Red Cell Distribution Width 18.5 % (11.5-14.5); White Blood Count 26.7 K/mm3 (4.5-10.0)
[2021-04-01 06:36] LABS: Albumin Level 2.4 g/dL (3.5-5.1); Anion Gap 5 mmol/L (8-16); Blood Urea Nitrogen 27 mg/dL (7-17); Calcium 8.7 mg/dL (8.4-10.2); Carbon Dioxide 25 mmol/L (22-30); Chloride 104 mmol/L (98-107); Estimated CRCL calculation 14 ml/min; Estimated Glomerular Filt Rate 11; Glucose 124 mg/dL (65-110); Phosphorus 4.8 mg/dL (2.5-4.5); Potassium 4.5 mmol/L (3.4-5.0); Sodium 134 mmol/L (137-145)
[2021-04-01] MEDS: LEVOTHYROXINE SODIUM 75 MCG TABLET PO (06:44)
[2021-04-01] MEDS: LEVOTHYROXINE SODIUM 100 MCG TABLET PO (06:44)
--- NOTE | 2021-04-01 07:01 | ADMGEN ---
This patient, Yolanda Conway, was admitted to [facility] Surg Room 317-01. Patient/family oriented to hospital policies and general routines including ID bracelet, bed and alarms, visiting hours, pain management, procedures, bathroom and other care routines, personal items, smoking policy, room service/diet, and visiting hours. Information on how to activate the Rapid Response Team has been discussed. Patient/Family are encouraged to report perceived risks to care and to ask questions if they do not understand what they are told or what they should do.
[2021-04-01 08:28] LABS: Glucose Point of Care 111 mg/dl (65-105)
[2021-04-01] MEDS: rOPINIRole HCL 1 MG TABLET 2 MG PO ×2 (09:22→17:11)
[2021-04-01] MEDS: CALCIUM ACETATE 667 MG TABLET 1334 MG PO ×3 (09:23→17:09)
[2021-04-01] MEDS: PANTOPRAZOLE 40 MG TABLET PO ×2 (09:23→17:10)
[2021-04-01] MEDS: MIDODRINE HCL 2.5 MG TABLET 5 MG PO ×3 (09:24→17:09)
[2021-04-01] MEDS: ASCORBIC ACID 125 MG TABLET PO (09:24)
[2021-04-01] MEDS: ASPIRIN 81 MG CHEWABLE TABLET PO (09:25)
[2021-04-01] MEDS: MICONAZOLE NITRATE 2% CREAM 30 GM TUBE 1 APPLIC TOPICAL ×2 (09:25→17:09)
[2021-04-01] MEDS: allopurinoL 100 MG TABLET PO (09:25)
[2021-04-01] MEDS: DULoxetine HCL 30 MG CAPSULE.DR PO (09:25)
[2021-04-01] MEDS: ATORVASTATIN 20 MG TABLET PO (09:25)
[2021-04-01] MEDS: CHOLECALCIFEROL 1,000 UNITS TABLET 1000 UNITS PO (09:25)
[2021-04-01] MEDS: TICAGRELOR 90 MG TABLET PO ×2 (09:25→21:34)
[2021-04-01] MEDS: HEPARIN SODIUM 5,000 UNITS/ML VIAL 5000 UNITS SUB-Q ×2 (09:27→21:34)
[2021-04-01 12:35] LABS: Glucose Point of Care 126 mg/dl (65-105)
--- NOTE | 2021-04-01 15:24 | P.PNIM_ITS ---
Progress Note: A&P Assessment and Plan (1) Sepsis: Qualifiers: Sepsis acute organ dysfunction status: without acute organ dysfunction Sepsis type: sepsis due to unspecified organism Qualified Code(s): A41.9 - S epsis, unspecified organism Code(s): A41.9 - Sepsis, unspecified organism Status: Acute Assessment and Plan: * sepsis criteria with tachypnea, tachycardia, reported fever and leukocytosis. * Sepsis is likely due to pneumonia given chest x-ray findings. * leukocytosis on more suspicious of a bacterial pneumonia * probably related to healthcare associated pneumonia since residence in custodial and sarcoidosis and hemodialysis * Empiric therapy with Zosyn and vancomycin has been initiated. * Blood cultures are pending. * COVID antigen test at the custodial that was negative. * Recheck PCR for confirmatory purposes. * isolation until results are known * WBC 26.7 * Abdominal CT: Bibasilar consolidations, pleural effusion, Cirrhosis, splenomegaly, mild ascites, Small sliding hiatal hernia, Diverticulosis of the colon, Severe atherosclerotic calcification * Chest xray shors bilateral infrahilar regions concerning for PNA * General surgery consult for gallbladder distension with stones (2) End stage renal disease: Code(s): N18.6 - End stage renal disease Status: Acute Assessment and Plan: * Nephrology will be consulted for dialysis management. * BUN/Cr stable right now 27/3.90, phos 4.8 * Trend labs * Avoid fluid overload (3) Pneumonia: Qualifiers: Laterality: unspecified laterality Lung location: unspecified part of lung Pneumonia type: due to unspecified organism Qualified Code(s): J18.9 - Pneumonia, unspecified organism Code(s): J18.9 - Pneumonia, unspecified organism Status: Acute Assessment and Plan: * oxygen in the ER for comfort but no documented hypoxia. * wean oxygen. * history of COPD and sarcoidosis will add scheduled nebulizer treatments. * Xopenex given the patient's tachycardia. (4) T2DM (type 2 diabetes mellitus): Qualifiers: Diabetes mellitus complication detail: with polyneuropathy Diabetes mellitus complication status: with neurologic complications Diabetes mellitus keno terminal operator insulin use: with senior care use Qualified Code(s): E11.42 - Type 2 diabetes mellitus with diabetic polyneuropathy; Z79.4 - nursing home (current) use of insulin Code(s): E11.9 - Type 2 diabetes mellitus without complications Status: Acute Assessment and Plan: * type 2 diabetes and is on long-acting insulin. * currently euglycemic. * add low-dose sliding scale insulin, * Accu-Cheks * hypoglycemia protocol * insulin sliding scale (5) Cholelithiasis: Code(s): K80.20 - Calculus of gallbladder without cholecystitis without obstruction Status: Acute Assessment and Plan: * General Surgery consulted * Complaints of abdominal pain * Leukocytosis * Sepsis * CT show distension with gallstones * Will order RUQ ultrasound (6) Anemia: Code(s): D64.9 - Anemia, unspecified Status: Acute Assessment and Plan: * H/H currently 9.2/30.8 * Trend labs * Probably related to CKD on dialysis and other chronic diseases (7) Hypotension: Code(s): I95.9 - Hypotension, unspecified Status: Acute Assessment and Plan: * 90-110 systolically * Chronic * Midodrine 5mg PO T
--- NOTE | 2021-04-01 15:24 | PM.IMPN ---
Progress Note: A&P Assessment and Plan (1) Sepsis: Qualifiers: Sepsis acute organ dysfunction status: without acute organ dysfunction Sepsis type: sepsis due to unspecified organism Qualified Code(s): A41.9 - Sepsis, unspecified organism Code(s): A41.9 - Sepsis, unspecified organism Status: Acute Assessment and Plan: sepsis criteria with tachypnea, tachycardia, reported fever and leukocytosis. Sepsis is likely due to pneumonia given chest x-ray findings. leukocytosis on more suspicious of a bacterial pneumonia probably related to healthcare associated pneumonia since residence in group home and sarcoidosis and hemodialysis Empiric therapy with Zosyn and vancomycin has been initiated. Blood cultures are pending. COVID antigen test at the group home that was negative. Recheck PCR for confirmatory purposes. isolation until results are known WBC 26.[address]: Bibasilar consolidations, pleural effusion, Cirrhosis, splenomegaly, mild ascites, Small sliding hiatal hernia, Diverticulosis of the colon, Severe atherosclerotic calcification Chest xray shors bilateral infrahilar regions concerning for PNA General surgery consult for gallbladder distension with stones (2) End stage renal disease: Code(s): N18.6 - End stage renal disease Status: Acute Assessment and Plan: Nephrology will be consulted for dialysis management. BUN/Cr stable right now 27/3.90, phos 4.8 Trend labs Avoid fluid overload (3) Pneumonia: Qualifiers: Laterality: unspecified laterality Lung location: unspecified part of lung Pneumonia type: due to unspecified organism Qualified Code(s): J18.9 - Pneumonia, unspecified organism Code(s): J18.9 - Pneumonia, unspecified organism Status: Acute Assessment and Plan: oxygen in the ER for comfort but no documented hypoxia. wean oxygen. history of COPD and sarcoidosis will add scheduled nebulizer treatments. Xopenex given the patient's tachycardia. (4) T2DM (type 2 diabetes mellitus): Qualifiers: Diabetes mellitus complication detail: with polyneuropathy Diabetes mellitus complication status: with neurologic complications Diabetes mellitus nursing home insulin use: with nursing home use Qualified Code(s): E11.42 - Type 2 diabetes mellitus with diabetic polyneuropathy; Z79.4 - jail (current) use of insulin Code(s): E11.9 - Type 2 diabetes mellitus without complications Status: Acute Assessment and Plan: type 2 diabetes and is on long-acting insulin. currently euglycemic. add low-dose sliding scale insulin, Accu-Cheks hypoglycemia protocol insulin sliding scale (5) Cholelithiasis: Code(s): K80.20 - Calculus of gallbladder without cholecystitis without obstruction Status: Acute Assessment and Plan: General Surgery consulted Complaints of abdominal pain Leukocytosis Sepsis CT show distension with gallstones Will order RUQ ultrasound (6) Anemia: Code(s): D64.9 - Anemia, unspecified Status: Acute Assessment and Plan: H/H currently 9.2/30.8 Trend labs Probably related to CKD on dialysis and other chronic diseases (7) Hypotension: Code(s): I95.9 - Hypotension, unspecified Status: Acute Assessment and Plan: 90-110 systolically Chronic Midodrine 5mg PO TID Trend blood pressure Time Spent With Patient Time with patient: 25 - 35 minutes Subjective Date/time seen: 04/01/21 15:24 Interval history: Date of service 04/01/2021 at 3:24 p.m. Patient is 70-year-old female who is here for fever and lethargy. Patient states that she does have abdominal pain with nausea however she is still eating she just says it takes her a while. She also states that she has been weak and she can pivot and she works with PT on Tuesdays and
--- NOTE | 2021-04-01 17:12 | PM.CNNEP ---
Assessment and Plan Assessment and plan (1) Diabetes: Code(s): E11.9 - Type 2 diabetes mellitus without complications Status: Acute (2) Anemia: Code(s): D64.9 - Anemia, unspecified Status: Acute (3) COPD (chronic obstructive pulmonary disease): Code(s): J44.9 - Chronic obstructive pulmonary disease, unspecified Status: Acute (4) Wheelchair dependence: Code(s): Z99.3 - Dependence on wheelchair Status: Acute (5) Stroke: Code(s): I63.9 - Cerebral infarction, unspecified Status: Acute (6) Non-ST elevation AR (NSTEMI): Code(s): I21.4 - Non-ST elevation (NSTEMI) myocardial infarction Status: Acute (7) T2DM (type 2 diabetes mellitus): Qualifiers: Diabetes mellitus longterm insulin use: with longterm use Diabetes mellitus complication status: with neurologic complications Diabetes mellitus complication detail: with polyneuropathy Qualified Code(s): E11.42 - Type 2 diabetes mellitus with diabetic polyneuropathy; Z79.4 - group home (current) use of insulin Code(s): E11.9 - Type 2 diabetes mellitus without complications Status: Acute (8) End stage renal disease: Code(s): N18.6 - End stage renal disease Status: Acute (9) Pneumonia: Qualifiers: Laterality: unspecified laterality Lung location: unspecified part of lung Pneumonia type: due to unspecified organism Qualified Code(s): J18.9 - Pneumonia, unspecified organism Code(s): J18.9 - Pneumonia, unspecified organism Status: Acute (10) Sepsis: Qualifiers: Sepsis type: sepsis due to unspecified organism Sepsis acute organ dysfunction status: without acute organ dysfunction Qualified Code(s): A41.9 - Sepsis, unspecified organism Code(s): A41.9 - Sepsis, unspecified organism Status: Acute Additional Plan 1. HD TOMORROW. 2. ABX PER IM TEAM 3. F/U ON PENDING LABS [facility] PROGNOSISI REMAINS VERY POOR. History of Present Illness Reason for Consult Consult date: 04/01/21 Chief Complaint Chief complaint: Pneumonia; ESRD Review of Systems Review of Systems: 70 yo wf with multiple medical problems including ESRD, DMII, HTN, MORBID OBESITY NATALI, CAD WITH RECENT AR REQUIRING STENT AT [facility] ABOUT 1 MONTH AGO, CHRONIC RIGHT HIP INFECTION, S/P LIGATION OF RIGHT UE AVF B/C OF STEAL SYNDROME PRECEDED BY LIGATION OF LEFT FOREARM AVF AFTER STEAL SYNDROME WITH EMBOLI TO HAND FOLLOWING SKIN LESION REMOVAL NEAR AVF B/C OF CANCER WHO NOW COMES IN WITH FEVER TEMP UP TO 104. 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 Mild concentric left ventricular hypertrophy. Pseudonormal diastolic dysfunction grade 2. Mild left atrial enlargement is. Mild mitral valve regurgitation. His mild aortic valve regurgitation. Mild pulmonary hypertension with RVSP of 4045. Mild tricuspid regurgitation. Mild pulmonic regurgitation. DVT (deep venous thrombosis) End-stage renal disease on hemodialysis Friday Essential hypertension Gout Hepatitis Obstructive sleep apnea Osteoporosis Peripheral vascular disease Sarcoidosis (~1998) Skin problem Thrombosis of arteriovenous graft due to arteriovenous access device for hemodialysis Thyroid cancer TIA (transient ischemic attack) X2 Surgical History Surgical History (Updated 04/01/21 @ 01:14 by Bambi Webb DO) Amputation of finger of left hand (~01/2021) Due to complications of left forearm AV fistula History of arteriovenous graft Left forearm with subsequent
[2021-04-01 18:21] LABS: Glucose Point of Care 149 mg/dl (65-105)
[2021-04-01] MEDS: traZODone HCL 50 MG TABLET PO (21:34)
[2021-04-01] MEDS: INSULIN GLARGINE (*BKC) 100 UNITS/ML SUB-Q (21:34)
[2021-04-02] VITALS (20 sets, daily range): BP systolic 95–155; BP diastolic 39–67; PULSE 60–117; RESP 18–20; TEMP 35.5–36.8; O2SAT 94–100; BMI 38.5
[2021-04-02 02:14] LABS: Glucose Point of Care 108 mg/dl (65-105)
[2021-04-02] MEDS: IPRATROPIUM BR 0.02% INH SOLN 0.5 MG/2.5 ML VIAL INHALATION ×3 (02:27→20:31)
[2021-04-02 06:29] LABS: Basophils Absolute Auto 0.1 K/mm3 (0.0-0.1); Basophils Percent Auto 0.4 % (0.2-1.2); Eosinophils Absolute Auto 0.4 K/mm3 (0-0.3); Eosinophils Percent Auto 2.2 % (0-4.4); Hematocrit 29.2 % (37.0-47.0); Hemoglobin 8.7 g/dL (12.0-15.0); Immature Granulocyte Absolute 0.23 K/mm3 (0.00-0.031); Immature Granulocyte Percent A 1.2 % (0-0.5); Lymphocytes Absolute Auto 0.98 K/mm3 (0.9-3.2); Lymphocytes Percent Auto 4.9 % (18.3-44.2); Mean Corpuscular HGB Conc 29.8 g/dl (32-36); Mean Corpuscular Hemoglobin 33.1 pg (26-34); Mean Platelet Volume 11.8 fl (7.4-10.4); Monocytes Absolute Auto 1.1 K/mm3 (0.1-0.6); Monocytes Percent Auto 5.4 % (2.6-8.5); Neutrophils Absolute Auto 17.1 K/mm3 (1.3-6.7); Neutrophils Percent Auto 85.9 % (45.5-73.1); Platelet Count Result 98 k/mm3 (150-375); Red Blood Count 2.63 M/mm3 (4.2-5.4); White Blood Count 19.9 K/mm3 (4.5-10.0)
[2021-04-02] MEDS: LEVOTHYROXINE SODIUM 75 MCG TABLET PO (06:40)
[2021-04-02] MEDS: LEVOTHYROXINE SODIUM 100 MCG TABLET PO (06:40)
[2021-04-02 06:46] LABS: Alanine Aminotransferase 11 U/L (4-35); Albumin Level 2.3 g/dL (3.5-5.1); Alkaline Phosphatase 134 U/L (38-126); Anion Gap 8 mmol/L (8-16); Aspartate Amino Transferase 17 U/L (14-36); Bilirubin,Total 0.6 mg/dL (0.2-1.3); Blood Urea Nitrogen 36 mg/dL (7-17); Calcium 8.6 mg/dL (8.4-10.2); Carbon Dioxide 25 mmol/L (22-30); Chloride 101 mmol/L (98-107); Estimated CRCL calculation 10 ml/min; Estimated Glomerular Filt Rate 9; Glucose 75 mg/dL (65-110); Potassium 4.4 mmol/L (3.4-5.0); Sodium 134 mmol/L (137-145)
[2021-04-02 07:23] LABS: Hepatitis B Surface Antigen Negative (Negative)
[2021-04-02 07:28] LABS: HAV RESULT Negative (Negative); Hepatitis B Core IgM Result Negative (Negative)
[2021-04-02 07:40] LABS: Hepatitis C Virus Antibody Negative (Negative)
[2021-04-02 08:12] LABS: Glucose Point of Care 73 mg/dl (65-105)
[2021-04-02] MEDS: PREGABALIN (*CRX) 25 MG CAPSULE 75 MG PO (08:44)
[2021-04-02] MEDS: ASPIRIN 81 MG CHEWABLE TABLET PO (08:45)
[2021-04-02] MEDS: CHOLECALCIFEROL 1,000 UNITS TABLET 1000 UNITS PO (08:45)
[2021-04-02] MEDS: allopurinoL 100 MG TABLET PO (08:45)
[2021-04-02] MEDS: TICAGRELOR 90 MG TABLET PO ×2 (08:45→21:15)
[2021-04-02] MEDS: ATORVASTATIN 20 MG TABLET PO (08:45)
[2021-04-02] MEDS: CALCIUM ACETATE 667 MG TABLET 1334 MG PO (08:45)
[2021-04-02] MEDS: MICONAZOLE NITRATE 2% CREAM 30 GM TUBE 1 APPLIC TOPICAL ×3 (08:46→21:15)
[2021-04-02] MEDS: DULoxetine HCL 30 MG CAPSULE.DR PO (08:46)
[2021-04-02] MEDS: rOPINIRole HCL 1 MG TABLET 2 MG PO (08:46)
[2021-04-02] MEDS: MIDODRINE HCL 2.5 MG TABLET 5 MG PO ×2 (08:46→12:46)
[2021-04-02] MEDS: ASCORBIC ACID 125 MG TABLET PO (08:46)
[2021-04-02] MEDS: PANTOPRAZOLE 40 MG TABLET PO (08:46)
--- NOTE | 2021-04-02 12:05 | PM.CNGS ---
Assessment and Plan Assessment and plan (1) Cholelithiasis: Code(s): K80.20 - Calculus of gallbladder without cholecystitis without obstruction Status: Acute Assessment and Plan: CT scan of the abdomen and pelvis was reviewed and discussed with the patient. She has evidence of gallbladder distention and possible gallstones. She is complaining of left lower quadrant abdominal pain when seen today and has not required any analgesics for this. Her pain also seems to improve after passing gas and bowel movements. RUQ abdominal ultrasound ordered today. Clinically, her pain and presentation are atypical for gallbladder disease, but will await ultrasound results. I discussed with the patient that given her multiple co-morbidities and liver disease, she would be a poor surgical candidate. If the ultrasound shows more evidence of cholecystitis, then we could consider a HIDA scan to further evaluate cystic duct patency. If her sepsis and leukocytosis seem to be caused by acute cholecystitis and intervention is needed, then we could consider percutaneous cholecystostomy tube placement. Would recommend to continue broad-spectrum IV antibiotics. Continue analgesics as needed. Trend labs. (2) Lower abdominal pain: Code(s): R10.30 - Lower abdominal pain, unspecified Status: Acute Assessment and Plan: Improved. See plan above. Will await ultrasound results, but could be another etiology for her abdominal pain. (3) Sepsis: Qualifiers: Sepsis type: sepsis due to unspecified organism Sepsis acute organ dysfunction status: without acute organ dysfunction Qualified Code(s): A41.9 - Sepsis, unspecified organism Code(s): A41.9 - Sepsis, unspecified organism Status: Acute Assessment and Plan: Sepsis criteria met on admission. Etiology unclear, pulmonary versus gallbladder source. Initially, this was felt to be secondary to pneumonia. WBC peaked at 26,000 yesterday and down to 19,000 today. Blood cx NGTD. Continue broad-spectrum IV antibiotics. Trend labs. See plan above. (4) Pneumonia: Qualifiers: Laterality: unspecified laterality Lung location: unspecified part of lung Pneumonia type: due to unspecified organism Qualified Code(s): J18.9 - Pneumonia, unspecified organism Code(s): J18.9 - Pneumonia, unspecified organism Status: Acute (5) End stage renal disease: Code(s): N18.6 - End stage renal disease Status: Acute Assessment and Plan: HD Friday, Friday, and Friday. Nephrology following and planning dialysis today. (6) Liver cirrhosis: Code(s): K74.60 - Unspecified cirrhosis of liver Status: Acute (7) T2DM (type 2 diabetes mellitus): Qualifiers: Diabetes mellitus marine oil terminal superintendent insulin use: with alf use Diabetes mellitus complication status: with neurologic complications Diabetes mellitus complication detail: with polyneuropathy Qualified Code(s): E11.42 - Type 2 diabetes mellitus with diabetic polyneuropathy; Z79.4 - halfway (current) use of insulin Code(s): E11.9 - Type 2 diabetes mellitus without complications Status: Acute (8) COPD (chronic obstructive pulmonary disease): Code(s): J44.9 - Chronic obstructive pulmonary disease, unspecified Status: Acute (9) Antiplatelet or antithrombotic long-term use: Code(s): Z79.02 - halfway (current) use of antithrombotics/antiplatelets Status: Acute Assessment and Plan: On Brilinta (10) Obesity (BMI 30-39.9): Code(s): E66.9 - Obesity, unspecified Status: Acute Additional Plan I have discussed the patient's case and plan of care with Dr. Booth. Thank you for allowing us to see the patient in consultation and we will continue to follow along with you. History of Present Illness Consult details Consult date: 04/02/21 Reason for consult: gallstones (Probable gallstones and gallbladder distention noted on
[2021-04-02 12:17] LABS: Glucose Point of Care 79 mg/dl (65-105)
--- NOTE | 2021-04-02 14:39 | P.PNIM_ITS ---
Progress Note: A&P Assessment and Plan (1) Sepsis: Qualifiers: Sepsis type: sepsis due to unspecified organism Sepsis acute organ dysfunction status: without acute organ dysfunction Qualified Code(s): A41.9 - Sepsis, unspecified organism Code(s): A41.9 - Sepsis, unspecified organism Status: Acute Assessment and Plan: * sepsis criteria with tachypnea, tachycardia, reported fever and leukocytosis. * Sepsis is likely due to pneumonia given chest x-ray findings. * leukocytosis on more suspicious of a bacterial pneumonia * probably related to healthcare associated pneumonia since residence in residential and sarcoidosis and hemodialysis * Empiric therapy with Zosyn and vancomycin has been initiated. * Blood cultures are pending. * COVID antigen test at the residential that was negative. * Recheck PCR for confirmatory purposes. * isolation until results are known * WBC 19.9 * Abdominal CT: Bibasilar consolidations, pleural effusion, Cirrhosis, splenomegaly, mild ascites, Small sliding hiatal hernia, Diverticulosis of the colon, Severe atherosclerotic calcification * Chest xray shows bilateral infrahilar regions concerning for PNA * General surgery consult for gallbladder distension with stones (2) End stage renal disease: Code(s): N18.6 - End stage renal disease Status: Acute Assessment and Plan: * Nephrology will be consulted for dialysis management. * BUN/Cr stable right now 36/4.60 * Trend labs * Avoid fluid overload * Dialysis scheduled for tomorrow (3) Pneumonia: Qualifiers: Laterality: unspecified laterality Lung location: unspecified part of lung Pneumonia type: due to unspecified organism Qualified Code(s): J18.9 - Pneumonia, unspecified organism Code(s): J18.9 - Pneumonia, unspecified organism Status: Acute Assessment and Plan: * oxygen in the ER for comfort but no documented hypoxia. * wean oxygen. * history of COPD and sarcoidosis will add scheduled nebulizer treatments. * Xopenex given the patient's tachycardia. (4) T2DM (type 2 diabetes mellitus): Qualifiers: Diabetes mellitus alf insulin use: with intermodal dispatcher use Diabetes mellitus complication status: with neurologic complications Diabetes mellitus complication detail: with polyneuropathy Qualified Code(s): E11.42 - Type 2 diabetes mellitus with diabetic polyneuropathy; Z79.4 - buttermaker continuous churn (current) use of insulin Code(s): E11.9 - Type 2 diabetes mellitus without complications Status: Acute Assessment and Plan: * Glucose 75 * type 2 diabetes and is on long-acting insulin. * currently euglycemic. * add low-dose sliding scale insulin, * Accu-Cheks * hypoglycemia protocol * insulin sliding scale (5) Cholelithiasis: Code(s): K80.20 - Calculus of gallbladder without cholecystitis without obstruction Status: Acute Assessment and Plan: * General Surgery consulted * Complaints of abdominal pain * Leukocytosis 19.9 * Sepsis * CT show distension with gallstones * RUQ ultrasound still pending (6) Anemia: Code(s): D64.9 - Anemia, unspecified Status: Acute Assessment and Plan: * H/H currently 8.7/29.2 * Trend labs * Probably related to CKD on dialysis and other chronic diseases (7) Hypotension: Code(s): I95.9 - Hypotension, unspecified Status: Acute Assessment and Plan: *
--- NOTE | 2021-04-02 14:39 | PM.IMPN ---
Progress Note: A&P Assessment and Plan (1) Sepsis: Qualifiers: Sepsis type: sepsis due to unspecified organism Sepsis acute organ dysfunction status: without acute organ dysfunction Qualified Code(s): A41.9 - Sepsis, unspecified organism Code(s): A41.9 - Sepsis, unspecified organism Status: Acute Assessment and Plan: sepsis criteria with tachypnea, tachycardia, reported fever and leukocytosis. Sepsis is likely due to pneumonia given chest x-ray findings. leukocytosis on more suspicious of a bacterial pneumonia probably related to healthcare associated pneumonia since residence in custodial and sarcoidosis and hemodialysis Empiric therapy with Zosyn and vancomycin has been initiated. Blood cultures are pending. COVID antigen test at the custodial that was negative. Recheck PCR for confirmatory purposes. isolation until results are known WBC 19.[address]: Bibasilar consolidations, pleural effusion, Cirrhosis, splenomegaly, mild ascites, Small sliding hiatal hernia, Diverticulosis of the colon, Severe atherosclerotic calcification Chest xray shows bilateral infrahilar regions concerning for PNA General surgery consult for gallbladder distension with stones (2) End stage renal disease: Code(s): N18.6 - End stage renal disease Status: Acute Assessment and Plan: Nephrology will be consulted for dialysis management. BUN/Cr stable right now 36/4.60 Trend labs Avoid fluid overload Dialysis scheduled for tomorrow (3) Pneumonia: Qualifiers: Laterality: unspecified laterality Lung location: unspecified part of lung Pneumonia type: due to unspecified organism Qualified Code(s): J18.9 - Pneumonia, unspecified organism Code(s): J18.9 - Pneumonia, unspecified organism Status: Acute Assessment and Plan: oxygen in the ER for comfort but no documented hypoxia. wean oxygen. history of COPD and sarcoidosis will add scheduled nebulizer treatments. Xopenex given the patient's tachycardia. (4) T2DM (type 2 diabetes mellitus): Qualifiers: Diabetes mellitus moth exterminator insulin use: with half-way use Diabetes mellitus complication status: with neurologic complications Diabetes mellitus complication detail: with polyneuropathy Qualified Code(s): E11.42 - Type 2 diabetes mellitus with diabetic polyneuropathy; Z79.4 - halfway (current) use of insulin Code(s): E11.9 - Type 2 diabetes mellitus without complications Status: Acute Assessment and Plan: Glucose 75 type 2 diabetes and is on long-acting insulin. currently euglycemic. add low-dose sliding scale insulin, Accu-Cheks hypoglycemia protocol insulin sliding scale (5) Cholelithiasis: Code(s): K80.20 - Calculus of gallbladder without cholecystitis without obstruction Status: Acute Assessment and Plan: General Surgery consulted Complaints of abdominal pain Leukocytosis 19.[address] show distension with gallstones RUQ ultrasound still pending (6) Anemia: Code(s): D64.9 - Anemia, unspecified Status: Acute Assessment and Plan: H/H currently 8.7/29.2 Trend labs Probably related to CKD on dialysis and other chronic diseases (7) Hypotension: Code(s): I95.9 - Hypotension, unspecified Status: Acute Assessment and Plan: 90-120/36-60 Chronic Midodrine 5mg PO TID Trend blood pressure (8) Liver cirrhosis: Code(s): K74.60 - Unspecified cirrhosis of liver Status: Acute Assessment and Plan: Ct scan shows cirrhosis Lactulose at home Need to restart lactulose Ammonia in the am (9) Antiplatelet or antithrombotic long-term use: Code(s): Z79.02 - halfway (current) use of antithrombotics/antiplatelets Status: Acute Assessment and Plan: Continue Leigh
[2021-04-02] MEDS: TOLNAFTATE 1% POWDER 45 GM BTL 1 APPLIC TOPICAL ×2 (14:48→21:15)
[2021-04-02 16:49] LABS: Glucose Point of Care 86 mg/dl (65-105)
[2021-04-02 20:20] LABS: SARS-CoV-2 RNA PCR Negative
[2021-04-02] MEDS: INSULIN GLARGINE (*BKC) 100 UNITS/ML SUB-Q (21:14)
[2021-04-02] MEDS: HEPARIN SODIUM 5,000 UNITS/ML VIAL 5000 UNITS SUB-Q (21:14)
[2021-04-02 21:15] LABS: Vancomycin Random 12.7 ug/mL (10-20)
[2021-04-02] MEDS: traZODone HCL 50 MG TABLET PO (21:15)
[2021-04-02 21:35] LABS: Glucose Point of Care 139 mg/dl (65-105)
--- NOTE | 2021-04-02 21:50 | PM.PNNEP ---
Progress Note: A&P Assessment and Plan (1) Liver cirrhosis: Code(s): K74.60 - Unspecified cirrhosis of liver Status: Acute (2) Obesity (BMI 30-39.9): Code(s): E66.9 - Obesity, unspecified Status: Acute (3) Sepsis: Qualifiers: Sepsis type: sepsis due to unspecified organism Sepsis acute organ dysfunction status: without acute organ dysfunction Qualified Code(s): A41.9 - Sepsis, unspecified organism Code(s): A41.9 - Sepsis, unspecified organism Status: Acute (4) Pneumonia: Qualifiers: Laterality: unspecified laterality Lung location: unspecified part of lung Pneumonia type: due to unspecified organism Qualified Code(s): J18.9 - Pneumonia, unspecified organism Code(s): J18.9 - Pneumonia, unspecified organism Status: Acute (5) End stage renal disease: Code(s): N18.6 - End stage renal disease Status: Acute (6) T2DM (type 2 diabetes mellitus): Qualifiers: Diabetes mellitus skilled nursing insulin use: with terminal manager use Diabetes mellitus complication status: with neurologic complications Diabetes mellitus complication detail: with polyneuropathy Qualified Code(s): E11.42 - Type 2 diabetes mellitus with diabetic polyneuropathy; Z79.4 - termite treater helper (current) use of insulin Code(s): E11.9 - Type 2 diabetes mellitus without complications Status: Acute (7) Non-ST elevation PR (NSTEMI): Code(s): I21.4 - Non-ST elevation (NSTEMI) myocardial infarction Status: Acute (8) Wheelchair dependence: Code(s): Z99.3 - Dependence on wheelchair Status: Acute (9) Stroke: Code(s): I63.9 - Cerebral infarction, unspecified Status: Acute (10) COPD (chronic obstructive pulmonary disease): Code(s): J44.9 - Chronic obstructive pulmonary disease, unspecified Status: Acute (11) Ventral hernia: Code(s): K43.9 - Ventral hernia without obstruction or gangrene Status: Acute (12) Panniculitis: Code(s): M79.3 - Panniculitis, unspecified Status: Acute Additional Plan 1. hd mwf 2. epogen-retacrit 3. cont abx 4. f/u on cultures Subjective Date/time seen: 10/11/21 21:50 had dialysis earlier- wbc count is slightly better. ct scan yesterday shows bilateral consolidation consistent with pneumonia Objective Data Vital Signs Vital Signs: Vital Signs - 24 hr 04/02/21 00:00 04/02/21 02:28 04/02/21 02:38 Temperature 36.2 C L Pulse Rate 72 78 80 Respiratory Rate 18 18 18 Blood Pressure 115/41 L Pulse Oximetry 100 04/02/21 06:00 04/02/21 09:35 04/02/21 09:54 Temperature 36.1 C L Pulse Rate 70 76 80 Respiratory Rate 18 20 18 Blood Pressure 97/50 L Pulse Oximetry 100 04/02/21 14:00 04/02/21 14:55 04/02/21 15:00 Temperature 36.0 C L 36.4 C Pulse Rate 60 72 75 Respiratory Rate 20 20 Blood Pressure 126/66 152/65 H 155/67 H Pulse Oximetry 97 04/02/21 15:15 04/02/21 16:00 04/02/21 16:30 Temperature Pulse Rate 78 84 83 Respiratory Rate Blood Pressure 95/39 L 101/41 L 101/52 L Pulse Oximetry 04/02/21 17:00 04/02/21 17:30 04/02/21 18:05 Temperature 36.7 C Pulse Rate 88 88 86 Respiratory Rate 20 Blood Pressure 99/55 L 109/59 L 133/45 L Pulse Oximetry 04/02/21 18:30 04/02/21 19:00 04/02/21 20:00 Temperature 36.8 C Pulse Rate 87 85 117 H Respiratory Rate 20 Blood Pressure 110/51 L 100/46 L 103/44 L Pulse Oximetry 95 04/02/21 20:20 04/02/21 20:33 Temperature Pulse Rate 85 84 Respiratory Rate 18 18 Blood Pressure Pulse Oximetry 96 Intake/Output Intake/Output: Intake & Output 03/30/21 03/31/21 04/01/21 04/02/21 23:59 23:59 23:59 23:59 Intake Total 1050 1690 910 Output Total 3000 Balance 1050 1690 -2090 Meds/Results Medications: Active Medications Generic Name Dose Route Start Last Admin Trade Name Freq PRN Reason Stop Dose Admin Allopurinol 100 mg 04/01/21 08:00 10
[2021-04-03] VITALS (12 sets, daily range): BP systolic 112–142; BP diastolic 43–56; PULSE 77–88; RESP 18–20; TEMP 36.6–36.7; O2SAT 95–100
[2021-04-03] MEDS: SIMETHICONE 80 MG TAB.CHEW 160 MG PO (00:29)
[2021-04-03] MEDS: IPRATROPIUM BR 0.02% INH SOLN 0.5 MG/2.5 ML VIAL INHALATION ×3 (02:13→20:02)
[2021-04-03 07:54] LABS: Glucose Point of Care 91 mg/dl (65-105)
[2021-04-03] MEDS: rOPINIRole HCL 1 MG TABLET 2 MG PO ×2 (09:26→17:52)
[2021-04-03] MEDS: ASPIRIN 81 MG CHEWABLE TABLET PO (09:26)
[2021-04-03] MEDS: CALCIUM ACETATE 667 MG TABLET 1334 MG PO ×3 (09:26→17:52)
[2021-04-03] MEDS: TICAGRELOR 90 MG TABLET PO ×2 (09:26→20:27)
[2021-04-03] MEDS: MIDODRINE HCL 2.5 MG TABLET 5 MG PO ×3 (09:26→17:52)
[2021-04-03] MEDS: CHOLECALCIFEROL 1,000 UNITS TABLET 1000 UNITS PO (09:26)
[2021-04-03] MEDS: allopurinoL 100 MG TABLET PO (09:26)
[2021-04-03] MEDS: DULoxetine HCL 30 MG CAPSULE.DR PO (09:27)
[2021-04-03] MEDS: ASCORBIC ACID 125 MG TABLET PO (09:27)
[2021-04-03] MEDS: ATORVASTATIN 20 MG TABLET PO (09:27)
[2021-04-03] MEDS: PANTOPRAZOLE 40 MG TABLET PO ×2 (09:27→17:52)
[2021-04-03] MEDS: TOLNAFTATE 1% POWDER 45 GM BTL 1 APPLIC TOPICAL ×2 (09:28→20:26)
--- NOTE | 2021-04-03 09:48 | PM.PNNEP ---
Progress Note: A&P Assessment and Plan (1) Liver cirrhosis: Code(s): K74.60 - Unspecified cirrhosis of liver Status: Acute (2) Obesity (BMI 30-39.9): Code(s): E66.9 - Obesity, unspecified Status: Acute (3) Pneumonia: Qualifiers: Laterality: unspecified laterality Lung location: unspecified part of lung Pneumonia type: due to unspecified organism Qualified Code(s): J18.9 - Pneumonia, unspecified organism Code(s): J18.9 - Pneumonia, unspecified organism Status: Acute (4) End stage renal disease: Code(s): N18.6 - End stage renal disease Status: Acute (5) T2DM (type 2 diabetes mellitus): Qualifiers: Diabetes mellitus detention insulin use: with detention use Diabetes mellitus complication status: with neurologic complications Diabetes mellitus complication detail: with polyneuropathy Qualified Code(s): E11.42 - Type 2 diabetes mellitus with diabetic polyneuropathy; Z79.4 - snf (current) use of insulin Code(s): E11.9 - Type 2 diabetes mellitus without complications Status: Acute (6) Non-ST elevation UT (NSTEMI): Code(s): I21.4 - Non-ST elevation (NSTEMI) myocardial infarction Status: Acute (7) COPD (chronic obstructive pulmonary disease): Code(s): J44.9 - Chronic obstructive pulmonary disease, unspecified Status: Acute Additional Plan 1. abx per im team 2. hd tomorrow. 3. 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 Subjective Date/time seen: 04/03/21 09:48- pt sitting up in chair. Exam HENMT: Head: normal to inspection Resp: Effort & Inspection: normal respiratory effort Auscultation: diminished lung sounds (in bases and coarse.) Cardio: Jugular venous distension: no JVD Rate: regular rate Heart sounds: S1 normal heart sound present and S2 normal heart sound present GI: Inspection: normal to inspection and other (except chronically distended abdomen) Skin: General skin exam: other (no leg edema) Objective Data Vital Signs Vital Signs: Vital Signs - 24 hr 04/02/21 09:54 04/02/21 14:00 04/02/21 14:55 Temperature 36.0 C L 36.4 C Pulse Rate 80 60 72 Respiratory Rate 18 20 20 Blood Pressure 126/66 152/65 H Pulse Oximetry 97 04/02/21 15:00 04/02/21 15:15 04/02/21 16:00 Temperature Pulse Rate 75 78 84 Respiratory Rate Blood Pressure 155/67 H 95/39 L 101/41 L Pulse Oximetry 04/02/21 16:30 04/02/21 17:00 04/02/21 17:30 Temperature Pulse Rate 83 88 88 Respiratory Rate Blood Pressure 101/52 L 99/55 L 109/59 L Pulse Oximetry 04/02/21 18:05 04/02/21 18:30 04/02/21 19:00 Temperature 36.7 C Pulse Rate 86 87 85 Respiratory Rate 20 Blood Pressure 133/45 L 110/51 L 100/46 L Pulse Oximetry 04/02/21 20:00 04/02/21 20:20 04/02/21 20:33 Temperature 36.8 C Pulse Rate 117 H 85 84 Respiratory Rate 20 18 18 Blood Pressure 103/44 L Pulse Oximetry 94 96 04/03/21 02:13 04/03/21 02:21 04/03/21 06:00 Temperature 36.7 C Pulse Rate 84 86 80 Respiratory Rate 18 20 20 Blood Pressure 112/43 L Pulse Oximetry 100 04/03/21 07:47 04/03/21 07:55 04/03/21 08:03 Temperature Pulse Rate 85 88 Respiratory Rate 20 20 Blood Pressure Pulse Oximetry 95 Intake/Output Intake/Output: Intake & Output 03/31/21 04/01/21 04/02/21 04/03/21 23:59 23:59 23:59 23:59 Intake Total 1050 1690 860 790 Output Total 3000 1 Balance 1050 1690 -2140 789 Meds/Results Medications: Active Medications Generic Name Dose Route Start Last Admin Trade Name Sadiq PRN Reason Stop Dose Admin Allopurinol 100 mg 04/01/21 08:00 04/03/21 09:26 Allopurinol 100 Mg Tablet PO 100 mg DAILY@0800 MONSERRAT Administration Alprazolam 0.25 mg 04/01/21 01:34 Alprazolam (
[2021-04-03 10:32] LABS: Basophils Absolute Auto 0.1 K/mm3 (0.0-0.1); Basophils Percent Auto 0.5 % (0.2-1.2); Eosinophils Absolute Auto 0.3 K/mm3 (0-0.3); Eosinophils Percent Auto 1.9 % (0-4.4); Hematocrit 32.7 % (37.0-47.0); Hemoglobin 10.1 g/dL (12.0-15.0); Immature Granulocyte Absolute 0.15 K/mm3 (0.00-0.031); Lymphocytes Absolute Auto 0.63 K/mm3 (0.9-3.2); Lymphocytes Percent Auto 4.4 % (18.3-44.2); Mean Corpuscular HGB Conc 30.9 g/dl (32-36); Mean Corpuscular Hemoglobin 32.7 pg (26-34); Mean Corpuscular Volume 105.8 fl (80-100); Monocytes Absolute Auto 0.9 K/mm3 (0.1-0.6); Monocytes Percent Auto 6.3 % (2.6-8.5); Neutrophils Absolute Auto 12.4 K/mm3 (1.3-6.7); Neutrophils Percent Auto 85.9 % (45.5-73.1); Platelet Count Result 114 k/mm3 (150-375); Red Blood Count 3.09 M/mm3 (4.2-5.4); Red Cell Distribution Width 18.1 % (11.5-14.5); White Blood Count 14.4 K/mm3 (4.5-10.0)
[2021-04-03 11:21] LABS: Alanine Aminotransferase 11 U/L (4-35); Albumin Level 2.5 g/dL (3.5-5.1); Alkaline Phosphatase 188 U/L (38-126); Anion Gap 7 mmol/L (8-16); Aspartate Amino Transferase 15 U/L (14-36); Blood Urea Nitrogen 23 mg/dL (7-17); Carbon Dioxide 29 mmol/L (22-30); Chloride 98 mmol/L (98-107); Estimated CRCL calculation 14 ml/min; Estimated Glomerular Filt Rate 13; Glucose 129 mg/dL (65-110); Potassium 3.7 mmol/L (3.4-5.0); Sodium 134 mmol/L (137-145)
[2021-04-03 11:57] LABS: Glucose Point of Care 118 mg/dl (65-105)
--- NOTE | 2021-04-03 12:19 | PM.PNGS ---
Progress Note: A&P Assessment and Plan (1) Cholelithiasis: Code(s): K80.20 - Calculus of gallbladder without cholecystitis without obstruction Status: Acute Assessment and Plan: RUQ ultrasound shows some gallbladder distention and debri, but no other findings suggestive of acute cholecystitis. She is not having any RUQ abdominal pain or tenderness on exam. Clinically improving. Without much evidence suggesting acute cholecystitis, we would recommend continuing current treatment with IV antibiotics and medical management. If she begins to have RUQ abdominal pain, fevers, or worsening leukocytosis, then would recommend ordering a HIDA scan. No plans for surgical intervention. Will sign off at this time. Please call us if there are any surgical needs in the future. (2) Lower abdominal pain: Code(s): R10.30 - Lower abdominal pain, unspecified Status: Acute Assessment and Plan: Her pain has improved and does not appear to be caused by her gallbladder. Recommend looking for other etiologies. She seems to be getting some relief from the simethicone. (3) Sepsis: Qualifiers: Sepsis type: sepsis due to unspecified organism Sepsis acute organ dysfunction status: without acute organ dysfunction Qualified Code(s): A41.9 - Sepsis, unspecified organism Code(s): A41.9 - Sepsis, unspecified organism Status: Acute Assessment and Plan: WBC trending down. Blood cx NGTD. Continue IV abx. Source seems more likely to be pulmonary. See plan above. (4) Pneumonia: Qualifiers: Laterality: unspecified laterality Lung location: unspecified part of lung Pneumonia type: due to unspecified organism Qualified Code(s): J18.9 - Pneumonia, unspecified organism Code(s): J18.9 - Pneumonia, unspecified organism Status: Acute (5) End stage renal disease: Code(s): N18.6 - End stage renal disease Status: Acute (6) Liver cirrhosis: Code(s): K74.60 - Unspecified cirrhosis of liver Status: Acute (7) T2DM (type 2 diabetes mellitus): Qualifiers: Diabetes mellitus manager long term care insulin use: with senior care use Diabetes mellitus complication status: with neurologic complications Diabetes mellitus complication detail: with polyneuropathy Qualified Code(s): E11.42 - Type 2 diabetes mellitus with diabetic polyneuropathy; Z79.4 - snf (current) use of insulin Code(s): E11.9 - Type 2 diabetes mellitus without complications Status: Acute (8) COPD (chronic obstructive pulmonary disease): Code(s): J44.9 - Chronic obstructive pulmonary disease, unspecified Status: Acute (9) Antiplatelet or antithrombotic long-term use: Code(s): Z79.02 - buttermaker helper (current) use of antithrombotics/antiplatelets Status: Acute Additional Plan I have discussed the plan of care with Dr. Booth. Subjective Subjective Date/Time Seen: 04/03/21 10:19 Patient reports: no new complaints, feels better, pain is less, tolerating a regular diet, flatus, bowel movement (yesterday) and afebrile Interval history: Patient seen and examined. She reports feeling better today. She is still having some LLQ cramping abdominal pain that seems to improve with passing gas and following bowel movements. She still feels somewhat bloated, but overall improving. No RUQ or upper abdominal pain at all. No nausea or vomiting. Ultrasound completed this morning. NO other complaints at this time. Review of Systems Review of Systems: All systems reviewed & are unremarkable except as noted in HPI and below Exam Const: General: comfortable, no acute distress, alert and awake Orientation/consciousness: patient oriented x3 GI: Inspection: obesity GI Palp: Yes Soft to palpation, Yes Tenderness to palpation present (GI) (LLQ, No upper abdominal tenderness), No Guarding due to palpation present (GI), Yes Ascites present and No Rebound tenderness present Auscultati
[2021-04-03] MEDS: HEPARIN SODIUM 5,000 UNITS/ML VIAL 5000 UNITS SUB-Q ×2 (12:29→20:31)
--- NOTE | 2021-04-03 12:52 | P.PNIM_ITS ---
Progress Note: A&P Assessment and Plan (1) Sepsis: Qualifiers: Sepsis acute organ dysfunction status: without acute organ dysfunction Sepsis type: sepsis due to unspecified organism Qualified Code(s): A41.9 - S epsis, unspecified organism Code(s): A41.9 - Sepsis, unspecified organism Status: Acute Assessment and Plan: * sepsis criteria with tachypnea, tachycardia, reported fever and leukocytosis. * Sepsis is likely due to pneumonia given chest x-ray findings. * leukocytosis on more suspicious of a bacterial pneumonia * probably related to healthcare associated pneumonia since residence in [facility] and sarcoidosis and hemodialysis * Empiric therapy with Zosyn and vancomycin has been initiated. * Blood cultures are pending, show NGTD * [facility] antigen test at the [facility] that was negative. * COVID PCR negative * WBC 14.4 * Abdominal CT: Bibasilar consolidations, pleural effusion, Cirrhosis, splenomegaly, mild ascites, Small sliding hiatal hernia, Diverticulosis of the colon, Severe atherosclerotic calcification * Chest xray shows bilateral infrahilar regions concerning for PNA * General surgery consult for gallbladder distension with stones (2) End stage renal disease: Code(s): N18.6 - End stage renal disease Status: Acute Assessment and Plan: * Nephrology will be consulted for dialysis management. * BUN/Cr stable right now 36/4.60 * Trend labs * Avoid fluid overload (3) Pneumonia: Qualifiers: Laterality: unspecified laterality Lung location: unspecified part of lung Pneumonia type: due to unspecified organism Qualified Code(s): J18.9 - Pneumonia, unspecified organism Code(s): J18.9 - Pneumonia, unspecified organism Status: Acute Assessment and Plan: * oxygen in the ER for comfort but no documented hypoxia. * wean oxygen. * history of COPD and sarcoidosis will add scheduled nebulizer treatments. * Xopenex given the patient's tachycardia. (4) T2DM (type 2 diabetes mellitus): Qualifiers: Diabetes mellitus complication detail: with polyneuropathy Diabetes mellitus complication status: with neurologic complications Diabetes mellitus intermediate insulin use: with intermediate use Qualified Code(s): E11.42 - Type 2 diabetes mellitus with diabetic polyneuropathy; Z79.4 - steam and power supervisor (current) use of insulin Code(s): E11.9 - Type 2 diabetes mellitus without complications Status: Acute Assessment and Plan: * Glucose 129 * type 2 diabetes and is on long-acting insulin. * currently euglycemic. * add low-dose sliding scale insulin, * Accu-Cheks * hypoglycemia protocol * insulin sliding scale (5) Cholelithiasis: Code(s): K80.20 - Calculus of gallbladder without cholecystitis without obstruction Status: Acute Assessment and Plan: * General Surgery consulted * Complaints of abdominal pain * Leukocytosis 14.4 * Sepsis * CT show distension with gallstones * RUQ ultrasound: Distended gallbladder with debris, small amt of perihepatic and pericholecystic fluid (6) Anemia: Code(s): D64.9 - Anemia, unspecified Status: Acute Assessment and Plan: * H/H currently 10.1/32.1 * Trend labs * Probably related to CKD on dialysis and other chronic diseases (7) Hypotension: Code(s): I95.9 - Hypotension, unspecified Status: Acute Assessment and Plan: * Seems to be re
--- NOTE | 2021-04-03 12:52 | PM.IMPN ---
Progress Note: A&P Assessment and Plan (1) Sepsis: Qualifiers: Sepsis acute organ dysfunction status: without acute organ dysfunction Sepsis type: sepsis due to unspecified organism Qualified Code(s): A41.9 - Sepsis, unspecified organism Code(s): A41.9 - Sepsis, unspecified organism Status: Acute Assessment and Plan: sepsis criteria with tachypnea, tachycardia, reported fever and leukocytosis. Sepsis is likely due to pneumonia given chest x-ray findings. leukocytosis on more suspicious of a bacterial pneumonia probably related to healthcare associated pneumonia since residence in [facility] and sarcoidosis and hemodialysis Empiric therapy with Zosyn and vancomycin has been initiated. Blood cultures are pending, show NGTD COVID antigen test at the [facility] that was negative. COVID PCR negative WBC 14.[address]: Bibasilar consolidations, pleural effusion, Cirrhosis, splenomegaly, mild ascites, Small sliding hiatal hernia, Diverticulosis of the colon, Severe atherosclerotic calcification Chest xray shows bilateral infrahilar regions concerning for PNA General surgery consult for gallbladder distension with stones (2) End stage renal disease: Code(s): N18.6 - End stage renal disease Status: Acute Assessment and Plan: Nephrology will be consulted for dialysis management. BUN/Cr stable right now 36/4.60 Trend labs Avoid fluid overload (3) Pneumonia: Qualifiers: Laterality: unspecified laterality Lung location: unspecified part of lung Pneumonia type: due to unspecified organism Qualified Code(s): J18.9 - Pneumonia, unspecified organism Code(s): J18.9 - Pneumonia, unspecified organism Status: Acute Assessment and Plan: oxygen in the ER for comfort but no documented hypoxia. wean oxygen. history of COPD and sarcoidosis will add scheduled nebulizer treatments. Xopenex given the patient's tachycardia. (4) T2DM (type 2 diabetes mellitus): Qualifiers: Diabetes mellitus complication detail: with polyneuropathy Diabetes mellitus complication status: with neurologic complications Diabetes mellitus [facility] insulin use: with [facility] use Qualified Code(s): E11.42 - Type 2 diabetes mellitus with diabetic polyneuropathy; Z79.4 - terminal supervisor (current) use of insulin Code(s): E11.9 - Type 2 diabetes mellitus without complications Status: Acute Assessment and Plan: Glucose 129 type 2 diabetes and is on long-acting insulin. currently euglycemic. add low-dose sliding scale insulin, Accu-Cheks hypoglycemia protocol insulin sliding scale (5) Cholelithiasis: Code(s): K80.20 - Calculus of gallbladder without cholecystitis without obstruction Status: Acute Assessment and Plan: General Surgery consulted Complaints of abdominal pain Leukocytosis 14.[address] show distension with gallstones RUQ ultrasound: Distended gallbladder with debris, small amt of perihepatic and pericholecystic fluid (6) Anemia: Code(s): D64.9 - Anemia, unspecified Status: Acute Assessment and Plan: H/H currently 10.1/32.1 Trend labs Probably related to CKD on dialysis and other chronic diseases (7) Hypotension: Code(s): I95.9 - Hypotension, unspecified Status: Acute Assessment and Plan: Seems to be resolved current 142/56 Chronic Midodrine 5mg PO TID Trend blood pressure (8) Liver cirrhosis: Code(s): K74.60 - Unspecified cirrhosis of liver Status: Acute Assessment and Plan: Ct scan shows cirrhosis Lactulose at home Restart lactulose 30ml PO BID Ammonia in the am (9) Antiplatelet or antithrombotic long-term use: Code(s): Z79.02 - penitentiary (current) use of antithrombotics/antiplatelets Status: Acute Assessment and Pl
[2021-04-03] MEDS: LACTULOSE 20 GM/30 ML UDC 30 GM PO ×2 (13:05→17:52)
[2021-04-03] MEDS: MICONAZOLE NITRATE 2% CREAM 30 GM TUBE 1 APPLIC TOPICAL (13:24)
[2021-04-03 17:45] LABS: Glucose Point of Care 130 mg/dl (65-105)
[2021-04-03] MEDS: oxyCODONE/ACETAMINOPHEN (*CRX) 5-325 MG TABLET 1 TABLET PO (18:42)
[2021-04-03] MEDS: INSULIN GLARGINE (*BKC) 100 UNITS/ML SUB-Q (20:24)
[2021-04-03] MEDS: traZODone HCL 50 MG TABLET PO (20:28)
[2021-04-03 20:48] LABS: Glucose Point of Care 151 mg/dl (65-105)
[2021-04-04] VITALS (29 sets, daily range): BP systolic 100–146; BP diastolic 50–69; PULSE 74–95; RESP 16–20; TEMP 35.5–36.9; O2SAT 94–100
[2021-04-04] MEDS: IPRATROPIUM BR 0.02% INH SOLN 0.5 MG/2.5 ML VIAL INHALATION ×4 (02:22→21:06)
[2021-04-04] MEDS: LEVOTHYROXINE SODIUM 75 MCG TABLET PO (06:03)
[2021-04-04] MEDS: LEVOTHYROXINE SODIUM 100 MCG TABLET PO (06:03)
[2021-04-04] MEDS: MICONAZOLE NITRATE 2% CREAM 30 GM TUBE 1 APPLIC TOPICAL ×2 (06:04→14:34)
[2021-04-04 06:47] LABS: Estimated CRCL calculation 11 ml/min; Estimated Glomerular Filt Rate 10
[2021-04-04 06:52] LABS: Basophils Percent Auto 0.3 % (0.2-1.2); Eosinophils Absolute Auto 0.3 K/mm3 (0-0.3); Eosinophils Percent Auto 3.1 % (0-4.4); Hematocrit 27.8 % (37.0-47.0); Hemoglobin 8.3 g/dL (12.0-15.0); Immature Granulocyte Absolute 0.08 K/mm3 (0.00-0.031); Immature Granulocyte Percent A 0.8 % (0-0.5); Lymphocytes Absolute Auto 0.76 K/mm3 (0.9-3.2); Lymphocytes Percent Auto 7.9 % (18.3-44.2); Mean Corpuscular HGB Conc 29.9 g/dl (32-36); Mean Corpuscular Hemoglobin 33.2 pg (26-34); Mean Corpuscular Volume 111.2 fl (80-100); Mean Platelet Volume 12.3 fl (7.4-10.4); Monocytes Absolute Auto 0.7 K/mm3 (0.1-0.6); Monocytes Percent Auto 7.1 % (2.6-8.5); Neutrophils Absolute Auto 7.8 K/mm3 (1.3-6.7); Neutrophils Percent Auto 80.8 % (45.5-73.1); Platelet Count Result 96 k/mm3 (150-375); Red Cell Distribution Width 17.7 % (11.5-14.5); White Blood Count 9.6 K/mm3 (4.5-10.0)
[2021-04-04 07:04] LABS: Alanine Aminotransferase 10 U/L (4-35); Albumin Level 2.4 g/dL (3.5-5.1); Alkaline Phosphatase 154 U/L (38-126); Anion Gap 8 mmol/L (8-16); Aspartate Amino Transferase 13 U/L (14-36); Bilirubin,Total 0.6 mg/dL (0.2-1.3); Blood Urea Nitrogen 32 mg/dL (7-17); Calcium 8.2 mg/dL (8.4-10.2); Carbon Dioxide 29 mmol/L (22-30); Chloride 100 mmol/L (98-107); Estimated CRCL calculation 11 ml/min; Estimated Glomerular Filt Rate 10; Glucose 103 mg/dL (65-110); Potassium 3.7 mmol/L (3.4-5.0); Sodium 137 mmol/L (137-145)
[2021-04-04 07:28] LABS: Glucose Point of Care 102 mg/dl (65-105)
[2021-04-04 08:43] LABS: Ammonia < 9 umol/L (9-30)
[2021-04-04] MEDS: MIDODRINE HCL 2.5 MG TABLET 5 MG PO ×3 (09:27→17:47)
--- NOTE | 2021-04-04 11:28 | PCNFU ---
Nutrition Follow-Up Complete: Inadequate Oral Intake as related to pneumonia as evidenced by poor po intake reported. Goal: Adequate Intake of at least 75% of meals/supplements Patient is progressing towards goal. No new goal at this time. Pt current nutrition is both a renal dialysis diet and diabetic consistent carbohydrate diet with Nepro BID providing 425 calories and 19 grams of protein. Last recorded weight is 89.3 kg. Recommend re-weighing patient prior to discharge. Bowel Motility: + BM 04/03/2021. Labs Reviewed: Hgb 8.3, Hct 27.8, Alb 2.4, GFR 10, BUN 32, Cr 4.2, A1C of 5.2% Meds Noted: Albutein, Zyloprim, Xanax, Vitamin C, Lipitor, Phoslo, Cymbalta, Retacrit, Glucagon, Heparin Sodium, Novolog, Lantus, Lactulose, Atrovent Neb, Synthroid, Proamatine, Protonix, Zofran Odt, Lyrica, Requip, Vitamin D, Vancomycin Hcl, Desyrel, Ultram, Brilinta, Sodium Chloride, Tolnaftate, Mylicon Additional Notes: Patient has had a good appetite consuming on average 89% of meals ordered. Patient has bilateral buttocks friction, but was determined to not be a pressure ulcer by the wound nurse. Encourage continued meal consumption and adequate fluids. RD will monitor every 3 days.
--- NOTE | 2021-04-04 12:45 | PCOTNOTE ---
Attempted to see pt. this date at 12:44. Pt. per RN currently in Dialysis. Will not return for a few hours.
--- NOTE | 2021-04-04 12:55 | PM.IMPN ---
Progress Note: A&P Assessment and Plan (1) Sepsis: Qualifiers: Sepsis acute organ dysfunction status: without acute organ dysfunction Sepsis type: sepsis due to unspecified organism Qualified Code(s): A41.9 - Sepsis, unspecified organism Code(s): A41.9 - Sepsis, unspecified organism Status: Acute Assessment and Plan: sepsis criteria with tachypnea, tachycardia, reported fever and leukocytosis. Sepsis is likely due to pneumonia given chest x-ray findings. leukocytosis more suspicious of a bacterial pneumonia probably related to healthcare associated pneumonia since residence in long-term and sarcoidosis and hemodialysis Empiric therapy with Zosyn and vancomycin has been initiated. Blood cultures are pending, show NGTD COVID antigen test at the long-term that was negative. COVID PCR negative WBC 9.[address]: Bibasilar consolidations, pleural effusion, Cirrhosis, splenomegaly, mild ascites, Small sliding hiatal hernia, Diverticulosis of the colon, Severe atherosclerotic calcification Chest xray shows bilateral infrahilar regions concerning for PNA General surgery consult for gallbladder distension with stones, no indication for intervention at this time (2) End stage renal disease: Code(s): N18.6 - End stage renal disease Status: Acute Assessment and Plan: Nephrology will be consulted for dialysis management. BUN/Cr stable right now 36/4.60 Trend labs Avoid fluid overload Dialysis scheduled (3) Pneumonia: Qualifiers: Laterality: unspecified laterality Lung location: unspecified part of lung Pneumonia type: due to unspecified organism Qualified Code(s): J18.9 - Pneumonia, unspecified organism Code(s): J18.9 - Pneumonia, unspecified organism Status: Acute Assessment and Plan: oxygen in the ER for comfort but no documented hypoxia. wean oxygen. history of COPD and sarcoidosis will add scheduled nebulizer treatments. Xopenex given the patient's tachycardia. (4) T2DM (type 2 diabetes mellitus): Qualifiers: Diabetes mellitus complication detail: with polyneuropathy Diabetes mellitus complication status: with neurologic complications Diabetes mellitus roasterman insulin use: with roasterman use Qualified Code(s): E11.42 - Type 2 diabetes mellitus with diabetic polyneuropathy; Z79.4 - long term care social worker (current) use of insulin Code(s): E11.9 - Type 2 diabetes mellitus without complications Status: Acute Assessment and Plan: Glucose 103 type 2 diabetes and is on long-acting insulin. currently euglycemic add low-dose sliding scale insulin, Accu-Cheks hypoglycemia protocol insulin sliding scale (5) Cholelithiasis: Code(s): K80.20 - Calculus of gallbladder without cholecystitis without obstruction Status: Acute Assessment and Plan: General Surgery consulted, said no indication for surgical services at this time Complaints of abdominal pain Leukocytosis Sepsis CT show distension with gallstones RUQ ultrasound: Distended gallbladder with debris, small amt of perihepatic and pericholecystic fluid (6) Anemia: Code(s): D64.9 - Anemia, unspecified Status: Acute Assessment and Plan: H/H currently 8.3/27.8 Trend labs Probably related to CKD on dialysis and other chronic diseases (7) Hypotension: Code(s): I95.9 - Hypotension, unspecified Status: Acute Assessment and Plan: Seems to be resolved current 108/60 Chronic Midodrine 5mg PO TID Trend blood pressure (8) Liver cirrhosis: Code(s): K74.60 - Unspecified cirrhosis of liver Status: Acute Assessment and Plan: Ct scan shows cirrhosis Lactulose at home Restart lactulose 30ml PO BID Ammonia in the am (9) Antiplatelet or antithrombotic long-term use: Code(s): Z
--- NOTE | 2021-04-04 12:55 | P.PNIM_ITS ---
Progress Note: A&P Assessment and Plan (1) Sepsis: Qualifiers: Sepsis acute organ dysfunction status: without acute organ dysfunction Sepsis type: sepsis due to unspecified organism Qualified Code(s): A41.9 - S epsis, unspecified organism Code(s): A41.9 - Sepsis, unspecified organism Status: Acute Assessment and Plan: * sepsis criteria with tachypnea, tachycardia, reported fever and leukocytosis. * Sepsis is likely due to pneumonia given chest x-ray findings. * leukocytosis more suspicious of a bacterial pneumonia * probably related to healthcare associated pneumonia since [facility] and sarcoidosis and hemodialysis * Empiric therapy with Zosyn and vancomycin has been initiated. * Blood cultures are pending, show NGTD * [facility] that was negative. * COVID PCR negative * WBC 9.6 * Abdominal CT: Bibasilar consolidations, pleural effusion, Cirrhosis, splenomegaly, mild ascites, Small sliding hiatal hernia, Diverticulosis of the colon, Severe atherosclerotic calcification * Chest xray shows bilateral infrahilar regions concerning for PNA * General surgery consult for gallbladder distension with stones, no indication for intervention at this time (2) End stage renal disease: Code(s): N18.6 - End stage renal disease Status: Acute Assessment and Plan: * Nephrology will be consulted for dialysis management. * BUN/Cr stable right now 36/4.60 * Trend labs * Avoid fluid overload * Dialysis scheduled (3) Pneumonia: Qualifiers: Laterality: unspecified laterality Lung location: unspecified part of lung Pneumonia type: due to unspecified organism Qualified Code(s): J18.9 - Pneumonia, unspecified organism Code(s): J18.9 - Pneumonia, unspecified organism Status: Acute Assessment and Plan: * oxygen in the ER for comfort but no documented hypoxia. * wean oxygen. * history of COPD and sarcoidosis will add scheduled nebulizer treatments. * Xopenex given the patient's tachycardia. (4) T2DM (type 2 diabetes mellitus): Qualifiers: Diabetes mellitus complication detail: with polyneuropathy Diabetes mellitus complication status: with neurologic complications Diabetes mellitus assisted insulin use: with assisted use Qualified Code(s): E11.42 - Type 2 diabetes mellitus with diabetic polyneuropathy; Z79.4 - penitentiary (current) use of insulin Code(s): E11.9 - Type 2 diabetes mellitus without complications Status: Acute Assessment and Plan: * Glucose 103 * type 2 diabetes and is on long-acting insulin. * currently euglycemic * add low-dose sliding scale insulin, * Accu-Cheks * hypoglycemia protocol * insulin sliding scale (5) Cholelithiasis: Code(s): K80.20 - Calculus of gallbladder without cholecystitis without obstruction Status: Acute Assessment and Plan: * General Surgery consulted, said no indication for surgical services at this time * Complaints of abdominal pain * Leukocytosis * Sepsis * CT show distension with gallstones * RUQ ultrasound: Distended gallbladder with debris, small amt of perihepatic and pericholecystic fluid (6) Anemia: Code(s): D64.9 - Anemia, unspecified Status: Acute Assessment and Plan: * H/H currently 8.3/27.8 * Trend labs * Probably related to CKD on dialysis and other chronic diseases (7) Hypotension:
[2021-04-04] MEDS: EPOETIN ALFA-EPBX 20,000 UNITS/ML VIAL 20000 UNITS IV PUSH (12:57)
[2021-04-04] MEDS: ASPIRIN 81 MG CHEWABLE TABLET PO (14:28)
[2021-04-04] MEDS: allopurinoL 100 MG TABLET PO (14:28)
[2021-04-04] MEDS: CHOLECALCIFEROL 1,000 UNITS TABLET 1000 UNITS PO (14:29)
[2021-04-04] MEDS: DULoxetine HCL 30 MG CAPSULE.DR PO (14:29)
[2021-04-04] MEDS: ATORVASTATIN 20 MG TABLET PO (14:29)
[2021-04-04] MEDS: ASCORBIC ACID 125 MG TABLET PO (14:29)
--- NOTE | 2021-04-04 14:29 | PCRCNOTE ---
Window of time for administration has passed. See next scheduled administration.
[2021-04-04] MEDS: PANTOPRAZOLE 40 MG TABLET PO ×2 (14:30→17:47)
[2021-04-04] MEDS: rOPINIRole HCL 1 MG TABLET 2 MG PO ×2 (14:31→17:47)
[2021-04-04] MEDS: TOLNAFTATE 1% POWDER 45 GM BTL 1 APPLIC TOPICAL ×2 (14:31→22:00)
[2021-04-04] MEDS: TICAGRELOR 90 MG TABLET PO ×2 (14:31→22:00)
[2021-04-04] MEDS: CALCIUM ACETATE 667 MG TABLET 1334 MG PO ×2 (14:34→17:46)
[2021-04-04] MEDS: SIMETHICONE 80 MG TAB.CHEW PO ×3 (14:35→22:00)
[2021-04-04 14:49] LABS: Glucose Point of Care 110 mg/dl (65-105)
--- NOTE | 2021-04-04 15:09 | PC.NURSE ---
Pt refused lyrica and lactulose this afternoon. Andrew Ramirez [employer] notified
--- NOTE | 2021-04-04 15:41 | PM.PNNEP ---
Progress Note: A&P Assessment and Plan (1) Liver cirrhosis: Code(s): K74.60 - Unspecified cirrhosis of liver Status: Acute (2) Obesity (BMI 30-39.9): Code(s): E66.9 - Obesity, unspecified Status: Acute (3) Hypotension: Code(s): I95.9 - Hypotension, unspecified Status: Acute (4) Cholelithiasis: Code(s): K80.20 - Calculus of gallbladder without cholecystitis without obstruction Status: Acute (5) Sepsis: Qualifiers: Sepsis type: sepsis due to unspecified organism Sepsis acute organ dysfunction status: without acute organ dysfunction Qualified Code(s): A41.9 - Sepsis, unspecified organism Code(s): A41.9 - Sepsis, unspecified organism Status: Acute (6) Pneumonia: Qualifiers: Laterality: unspecified laterality Lung location: unspecified part of lung Pneumonia type: due to unspecified organism Qualified Code(s): J18.9 - Pneumonia, unspecified organism Code(s): J18.9 - Pneumonia, unspecified organism Status: Acute (7) End stage renal disease: Code(s): N18.6 - End stage renal disease Status: Acute (8) T2DM (type 2 diabetes mellitus): Qualifiers: Diabetes mellitus intermediate designer insulin use: with skilled nursing use Diabetes mellitus complication status: with neurologic complications Diabetes mellitus complication detail: with polyneuropathy Qualified Code(s): E11.42 - Type 2 diabetes mellitus with diabetic polyneuropathy; Z79.4 - [facility] (current) use of insulin Code(s): E11.9 - Type 2 diabetes mellitus without complications Status: Acute (9) Non-ST elevation TN (NSTEMI): Code(s): I21.4 - Non-ST elevation (NSTEMI) myocardial infarction Status: Acute (10) Wheelchair dependence: Code(s): Z99.3 - Dependence on wheelchair Status: Acute Additional Plan 1. agree with additional of vinod. 2. update cxr soon. 3. cont pt/ ot Subjective Date/time seen: 04/04/21 12:41- on dialysis. Stable. overall still weak. Objective Data Vital Signs Vital Signs: Vital Signs - 24 hr 04/03/21 20:06 04/03/21 20:08 10/12/21 20:15 Temperature Pulse Rate 87 87 Respiratory Rate 18 18 Blood Pressure Pulse Oximetry 97 96 04/03/21 21:55 04/04/21 02:24 04/04/21 02:34 Temperature 36.7 C Pulse Rate 79 85 90 Respiratory Rate 20 20 20 Blood Pressure 126/53 L Pulse Oximetry 100 04/04/21 06:00 04/04/21 08:00 04/04/21 08:05 Temperature 36.6 C Pulse Rate 74 86 Respiratory Rate 18 18 Blood Pressure 120/52 L Pulse Oximetry 100 99 04/04/21 09:50 04/04/21 09:58 04/04/21 10:15 Temperature 36.6 C Pulse Rate 78 77 80 Respiratory Rate 18 Blood Pressure 138/58 L 137/69 128/66 Pulse Oximetry 04/04/21 10:30 04/04/21 10:45 04/04/21 11:00 Temperature Pulse Rate 87 85 84 Respiratory Rate Blood Pressure 119/64 127/63 131/57 L Pulse Oximetry 04/04/21 11:15 04/04/21 11:30 04/04/21 11:45 Temperature Pulse Rate 85 81 84 Respiratory Rate Blood Pressure 146/68 H 129/68 120/50 L Pulse Oximetry 04/04/21 12:00 04/04/21 12:15 04/04/21 12:30 Temperature Pulse Rate 86 88 89 Respiratory Rate Blood Pressure 120/62 125/56 L 113/58 L Pulse Oximetry 04/04/21 12:45 04/04/21 13:00 04/04/21 13:15 Temperature Pulse Rate 88 88 88 Respiratory Rate Blood Pressure 112/62 100/56 L 114/58 L Pulse Oximetry 04/04/21 13:30 04/04/21 13:45 04/04/21 13:58 Temperature Pulse Rate 89 90 88 Respiratory Rate Blood Pressure 108/60 103/53 L 112/60 Pulse Oximetry 04/04/21 14:07 04/04/21 14:31 Temperature 36.4 C Pulse Rate 81 88 Respiratory Rate 18 20 Blood Pressure 133/66 Pulse Oximetry Intake/Output Intake/Output: Intake & Output 04/01/21 04/02/21 04/03/21 04/04/21 23:59 23:59 23:59 23:59 Intake Total 7746 106 2958 440 Output Total 3000 1 3000 Balance 1690 -2090 6061 -6304 Meds/Res
--- NOTE | 2021-04-04 16:14 | PC.NURSE ---
Pt c/o abd pain after eating mostly in the LLQ, neqw orders obtained
[2021-04-04] MEDS: LACTULOSE 20 GM/30 ML UDC 30 GM PO (17:17)
[2021-04-04] MEDS: oxyCODONE/ACETAMINOPHEN (*CRX) 5-325 MG TABLET 1 TABLET PO (17:55)
[2021-04-04 17:57] LABS: Glucose Point of Care 136 mg/dl (65-105)
[2021-04-04] MEDS: INSULIN GLARGINE (*BKC) 100 UNITS/ML SUB-Q (22:00)
[2021-04-04] MEDS: traZODone HCL 50 MG TABLET PO (22:00)
[2021-04-04] MEDS: HEPARIN SODIUM 5,000 UNITS/ML VIAL 5000 UNITS SUB-Q (22:00)
[2021-04-04 23:06] LABS: Glucose Point of Care 147 mg/dl (65-105)
[2021-04-05] MEDS: MICONAZOLE NITRATE 2% CREAM 30 GM TUBE 1 APPLIC TOPICAL (01:20)
[2021-04-05 06:00] VITALS: BP 157/51; PULSE 93; RESP 20; TEMP 36.7; O2SAT 97
[2021-04-05 06:37] LABS: Basophils Percent Auto 0.4 % (0.2-1.2); Eosinophils Absolute Auto 0.2 K/mm3 (0-0.3); Eosinophils Percent Auto 2.2 % (0-4.4); Hemoglobin 8.9 g/dL (12.0-15.0); Immature Granulocyte Absolute 0.14 K/mm3 (0.00-0.031); Immature Granulocyte Percent A 1.5 % (0-0.5); Lymphocytes Absolute Auto 0.75 K/mm3 (0.9-3.2); Lymphocytes Percent Auto 7.9 % (18.3-44.2); Mean Corpuscular HGB Conc 29.7 g/dl (32-36); Mean Corpuscular Hemoglobin 32.7 pg (26-34); Mean Corpuscular Volume 110.3 fl (80-100); Mean Platelet Volume 11.7 fl (7.4-10.4); Monocytes Absolute Auto 0.8 K/mm3 (0.1-0.6); Neutrophils Absolute Auto 7.6 K/mm3 (1.3-6.7); Platelet Count Result 105 k/mm3 (150-375); Red Blood Count 2.72 M/mm3 (4.2-5.4); Red Cell Distribution Width 17.9 % (11.5-14.5); White Blood Count 9.5 K/mm3 (4.5-10.0)
[2021-04-05] MEDS: LEVOTHYROXINE SODIUM 75 MCG TABLET PO (06:43)
[2021-04-05] MEDS: LEVOTHYROXINE SODIUM 100 MCG TABLET PO (06:44)
[2021-04-05 06:48] LABS: Alanine Aminotransferase 11 U/L (4-35); Albumin Level 2.6 g/dL (3.5-5.1); Alkaline Phosphatase 193 U/L (38-126); Anion Gap 9 mmol/L (8-16); Aspartate Amino Transferase 14 U/L (14-36); Bilirubin,Total 0.6 mg/dL (0.2-1.3); Blood Urea Nitrogen 22 mg/dL (7-17); Calcium 8.2 mg/dL (8.4-10.2); Carbon Dioxide 31 mmol/L (22-30); Chloride 99 mmol/L (98-107); Estimated CRCL calculation 13 ml/min; Estimated Glomerular Filt Rate 13; Glucose 132 mg/dL (65-110); Potassium 3.5 mmol/L (3.4-5.0); Sodium 139 mmol/L (137-145)
[2021-04-05 07:36] LABS: Anisocytosis 1+ (NORMAL); Hypochromasia 1+ (NORMAL); Platelet Estimate Decreased (Adequate)
[2021-04-05 07:37] LABS: Ovalocytes 1+ (NORMAL); Tear Drop Cells 1+ (NORMAL)
[2021-04-05 07:48] VITALS: PULSE 93; RESP 18; O2SAT 95
[2021-04-05] MEDS: IPRATROPIUM BR 0.02% INH SOLN 0.5 MG/2.5 ML VIAL INHALATION ×2 (07:48→14:34)
[2021-04-05 08:00] VITALS: PULSE 91; RESP 18; O2SAT 95
[2021-04-05 08:09] LABS: Glucose Point of Care 125 mg/dl (65-105)
[2021-04-05] MEDS: SIMETHICONE 80 MG TAB.CHEW PO ×2 (08:58→13:43)
[2021-04-05] MEDS: CALCIUM ACETATE 667 MG TABLET 1334 MG PO ×2 (08:58→12:13)
[2021-04-05] MEDS: PANTOPRAZOLE 40 MG TABLET PO (08:58)
[2021-04-05] MEDS: ASCORBIC ACID 125 MG TABLET PO (08:59)
[2021-04-05] MEDS: allopurinoL 100 MG TABLET PO (08:59)
[2021-04-05] MEDS: CHOLECALCIFEROL 1,000 UNITS TABLET 1000 UNITS PO (08:59)
[2021-04-05] MEDS: TICAGRELOR 90 MG TABLET PO (09:00)
[2021-04-05] MEDS: MIDODRINE HCL 2.5 MG TABLET 5 MG PO ×2 (09:00→12:14)
[2021-04-05] MEDS: ATORVASTATIN 20 MG TABLET PO (09:00)
[2021-04-05] MEDS: TOLNAFTATE 1% POWDER 45 GM BTL 1 APPLIC TOPICAL (09:02)
[2021-04-05] MEDS: ASPIRIN 81 MG CHEWABLE TABLET PO (09:03)
[2021-04-05] MEDS: DULoxetine HCL 30 MG CAPSULE.DR PO (09:03)
[2021-04-05] MEDS: LACTULOSE 20 GM/30 ML UDC 30 GM PO (09:03)
[2021-04-05] MEDS: HEPARIN SODIUM 5,000 UNITS/ML VIAL 5000 UNITS SUB-Q (09:16)
--- NOTE | 2021-04-05 10:00 | PM.DS ---
DS: Admitting Diagnosis Discharge Date Date of Service: 04/05/21 @ 10:00am Admitting Diagnosis Pneumonia DS: Discharge Diagnosis Discharge Diagnosis (1) Sepsis: Qualifiers: Sepsis acute organ dysfunction status: without acute organ dysfunction Sepsis type: sepsis due to unspecified organism Qualified Code(s): A41.9 - Sepsis, unspecified organism Code(s): A41.9 - Sepsis, unspecified organism Status: Acute Assessment and Plan: sepsis criteria with tachypnea, tachycardia, reported fever and leukocytosis. Sepsis is likely due to pneumonia given chest x-ray findings. leukocytosis more suspicious of a bacterial pneumonia probably related to healthcare associated pneumonia since residence in longterm and sarcoidosis and hemodialysis Empiric therapy with Zosyn and vancomycin has been initiated. Blood cultures are pending, show NGTD COVID antigen test at the longterm that was negative. COVID PCR negative WBC 9.[address]: Bibasilar consolidations, pleural effusion, Cirrhosis, splenomegaly, mild ascites, Small sliding hiatal hernia, Diverticulosis of the colon, Severe atherosclerotic calcification Chest xray shows bilateral infrahilar regions concerning for PNA General surgery consult for gallbladder distension with stones, no indication for intervention at this time (2) End stage renal disease: Code(s): N18.6 - End stage renal disease Status: Acute Assessment and Plan: Nephrology will be consulted for dialysis management. BUN/Cr stable right now 22/3.50 Trend labs Avoid fluid overload Dialysis scheduled Patient is followed by Dr. Aldridge (3) Pneumonia: Qualifiers: Laterality: unspecified laterality Lung location: unspecified part of lung Pneumonia type: due to unspecified organism Qualified Code(s): J18.9 - Pneumonia, unspecified organism Code(s): J18.9 - Pneumonia, unspecified organism Status: Acute Assessment and Plan: oxygen in the ER for comfort but no documented hypoxia. wean oxygen. history of COPD and sarcoidosis will add scheduled nebulizer treatments. Xopenex given the patient's tachycardia. Chest X-ray this morning showed bibasilar airspace disease with interval improvement, will continue antibiotics for 5 more days. (4) T2DM (type 2 diabetes mellitus): Qualifiers: Diabetes mellitus complication detail: with polyneuropathy Diabetes mellitus complication status: with neurologic complications Diabetes mellitus longterm insulin use: with longterm use Qualified Code(s): E11.42 - Type 2 diabetes mellitus with diabetic polyneuropathy; Z79.4 - USP (current) use of insulin Code(s): E11.9 - Type 2 diabetes mellitus without complications Status: Acute Assessment and Plan: Glucose 132 type 2 diabetes and is on long-acting insulin. currently euglycemic add low-dose sliding scale insulin, Accu-Cheks hypoglycemia protocol insulin sliding scale (5) Cholelithiasis: Code(s): K80.20 - Calculus of gallbladder without cholecystitis without obstruction Status: Acute Assessment and Plan: General Surgery consulted, said no indication for surgical services at this time Complaints of abdominal pain Leukocytosis Sepsis CT show distension with gallstones RUQ ultrasound: Distended gallbladder with debris, small amt of perihepatic and pericholecystic fluid (6) Anemia: Code(s): D64.9 - Anemia, unspecified Status: Acute Assessment and Plan: H/H currently 8.9/30.0 Trend labs Probably related to CKD on dialysis and other chronic diseases stable at this time. (7) Hypotension: Code(s): I95.9 - Hypotension, unspecified Status: Acute Assessment and Plan: Seems to be resolved current 157/51 Chronic Midodrine 5mg PO TID Trend blood pressure (
--- NOTE | 2021-04-05 10:00 | P.DS_ITS ---
DS: Admitting Diagnosis Discharge Date Date of Service: 04/05/21 @ 10:00am Admitting Diagnosis Pneumonia DS: Discharge Diagnosis Discharge Diagnosis (1) Sepsis: Qualifiers: Sepsis acute organ dysfunction status: without acute organ dysfunction Sepsis type: sepsis due to unspecified organism Qualified Code(s): A41.9 - Sepsis, unspecified organism Code(s): A41.9 - Sepsis, unspecified organism Status: Acute Assessment and Plan: * sepsis criteria with tachypnea, tachycardia, reported fever and leukocytosis. * Sepsis is likely due to pneumonia given chest x-ray findings. * leukocytosis more suspicious of a bacterial pneumonia * probably related to healthcare associated pneumonia since residence in snf and sarcoidosis and hemodialysis * Empiric therapy with Zosyn and vancomycin has been initiated. * Blood cultures are pending, show NGTD * COVID antigen test at the snf that was negative. * COVID PCR negative * WBC 9.6 * Abdominal CT: Bibasilar consolidations, pleural effusion, Cirrhosis, splenomegaly, mild ascites, Small sliding hiatal hernia, Diverticulosis of the colon, Severe atherosclerotic calcification * Chest xray shows bilateral infrahilar regions concerning for PNA * General surgery consult for gallbladder distension with stones, no indication for intervention at this time (2) End stage renal disease: Code(s): N18.6 - End stage renal disease Status: Acute Assessment and Plan: * Nephrology will be consulted for dialysis management. * BUN/Cr stable right now 22/3.50 * Trend labs * Avoid fluid overload * Dialysis scheduled Patient is followed by Dr. Aldridge (3) Pneumonia: Qualifiers: Laterality: unspecified laterality Lung location: unspecified part of lung Pneumonia type: due to unspecified organism Qualified Code(s): J18.9 - Pneumonia, unspecified organism Code(s): J18.9 - Pneumonia, unspecified organism Status: Acute Assessment and Plan: * oxygen in the ER for comfort but no documented hypoxia. * wean oxygen. * history of COPD and sarcoidosis will add scheduled nebulizer treatments. * Xopenex given the patient's tachycardia. Chest X-ray this morning showed bibasilar airspace disease with interval improvement, will continue antibiotics for 5 more days. (4) T2DM (type 2 diabetes mellitus): Qualifiers: Diabetes mellitus complication detail: with polyneuropathy Diabetes mellitus complication status: with neurologic complications Diabetes mellitus long goods drier insulin use: with long goods drier use Qualified Code(s): E11.42 - Type 2 diabetes mellitus with diabetic polyneuropathy; Z79.4 - care home (current) use of insulin Code(s): E11.9 - Type 2 diabetes mellitus without complications Status: Acute Assessment and Plan: * Glucose 132 * type 2 diabetes and is on long-acting insulin. * currently euglycemic * add low-dose sliding scale insulin, * Accu-Cheks * hypoglycemia protocol * insulin sliding scale (5) Cholelithiasis: Code(s): K80.20 - Calculus of gallbladder without cholecystitis without obstruction Status: Acute Assessment and Plan: * General Surgery consulted, said no indication for surgical services at this time * Complaints of abdominal pain * Leukocytosis * Sepsis * CT show distension with gallstones * RUQ ultrasound: Distended gallbladder with debris, small amt of perihepatic and pericholecystic fluid
[2021-04-05 11:54] LABS: Glucose Point of Care 161 mg/dl (65-105)
[2021-04-05 14:01] LABS: EDCOVIDSCREEN Negative (Negative)
--- NOTE | 2021-04-05 14:21 | PM.PNNEP ---
Progress Note: A&P Time Spent With Patient Time: pt seen- she looks well but having some gaseous abdominal distension- xray ab was negative. spoke with hospital attending and agree with plan to discharge. Subjective Date/time seen: 04/05/21 14:21 Objective Data Vital Signs Vital Signs: Vital Signs - 24 hr 04/04/21 14:31 04/04/21 15:41 04/04/21 21:06 Temperature Pulse Rate 88 93 Respiratory Rate 20 16 Blood Pressure Pulse Oximetry 94 94 04/04/21 21:13 04/04/21 22:00 04/05/21 06:00 Temperature 36.6 C 36.7 C Pulse Rate 90 95 93 Respiratory Rate 16 20 20 Blood Pressure 100/62 157/51 H Pulse Oximetry 96 97 04/05/21 07:48 04/05/21 08:00 Temperature Pulse Rate 93 91 Respiratory Rate 18 18 Blood Pressure Pulse Oximetry 95 95 Intake/Output Intake/Output: Intake & Output 04/02/21 04/03/21 04/04/21 04/05/21 23:59 23:59 23:59 23:59 Intake Total 910 2080 1550 650 Output Total 3000 1 3000 Balance -2090 2079 -1450 650 Meds/Results Medications: Active Medications Generic Name Dose Route Start Last Admin Trade Name Freq PRN Reason Stop Dose Admin Allopurinol 100 mg 04/01/21 08:00 04/05/21 08:59 Allopurinol 100 Mg Tablet PO 100 mg DAILY@0800 MONSERRAT Administration Alprazolam 0.25 mg 04/01/21 01:34 Alprazolam (*Crx) 0.25 Mg Tablet PO Q8H PRN Anxiety Ascorbic Acid 125 mg 04/01/21 09:00 04/05/21 08:59 Ascorbic Acid 125 Mg Tablet PO 05/01/21 08:59 125 mg DAILY MONSERRAT Administration Aspirin 81 mg 04/01/21 08:00 04/05/21 09:03 Aspirin 81 Mg Chewable Tablet PO 81 mg DAILY@0800 MONSERRAT Administration Atorvastatin Calcium 20 mg 04/01/21 09:00 04/05/21 09:00 Atorvastatin 20 Mg Tablet PO 20 mg QAM MONSERRAT Administration Calcium Acetate 1,334 mg 04/01/21 08:00 04/05/21 12:13 Calcium Acetate 667 Mg Tablet PO 1,334 mg TIDWM [place]SERRAT Administration Dextrose 12.5 gm 03/31/21 22:35 Dextrose 50% 25 Gm/50 Ml Syringe IV PUSH PRN PRN Hypoglycemia Protocol Diphenhydramine HCl 25 mg 04/01/21 02:11 Diphenhydramine Hcl Cap 25 Mg Capsule PO HS PRN Insomnia Duloxetine HCl 30 mg 04/01/21 09:00 04/05/21 09:03 Duloxetine Hcl 30 Mg Capsule.Dr PO 30 mg QAM MONSERRAT Administration Glucagon 1 mg 03/31/21 22:35 Glucagon For Inj 1 Mg Vial IM PRN PRN Hypoglycemia Protocol Glucose 15 gm 03/31/21 22:35 Glucose Oral Gel 15 Gm Of Glucse In 37.5 Gm Tube PO PRN PRN Hypoglycemia Protocol Heparin Sodium (Porcine) 5,000 units 04/01/21 09:00 04/05/21 09:16 Heparin Sodium 5,000 Units/Ml Vial SUB-Q 5,000 units Q12HR MONSERRAT Administration Vancomycin HCl 1,500 mg in 500 mls @ 333.333 mls/hr 03/31/21 22:01 Vancomycin 1,500 Mg/D5w 500 Ml IVPB PRN PRN Kinetics Consult Piperacillin Sod/Tazobactam 50 mls @ 50 mls/hr 04/02/21 19:00 04/04/21 16:00 Sod 0.75 gm/ Dextrose IVPB Infused [id number] MONSERRAT Infusion Piperacillin Sod/Tazobactam Sod 2.25 gm in 50 mls @ 100 mls/hr 03/31/21 22:00 04/05/21 13:43 Zosyn 2.25 Gm/D5w 50 Ml IVPB 100 mls/hr Q8H MONSERRAT Administration Dextrose 1,000 mls @ 100 mls/hr 03/31/21 22:35 Dextrose 5% 1,000 Ml IVPB PRN PRN Hypoglycemia Protocol Insulin Aspart 2 - 5 units 04/01/21 08:00 04/05/21 12:14 Insulin Aspart (*Bkc) 100 Units/Ml SUB-Q Not Given TIDWM [place]ERRAT Protocol Insulin Glargine 4 units 04/01/21 21:00 04/04/21 22:00 Insulin Glargine (*Bkc) 100 Units/Ml SUB-Q 4 units HS MONSERRAT Administration Ipratropium Riley 0.5 mg 04/01/21 02:00 04/05/21 07:48 Ipratropium Br 0.02% Inh Soln 0.5 Mg/2.5 Ml Vial INHALATION 0.5 mg Q6HRT MONSERRAT Administration Lactulose 30 gm 04/03/21 17:00 04/05/21 09:03 Lactulose 20 Gm/30 Ml Udc PO 30 gm BID MONSERRAT Administration Levalbuterol HCl 1.25 mg 04/01/21 02:00 04/05/21 07:48 Levalbuterol Neb 1.25 Mg/0.5 Ml INHALATION 1.25 mg Q
--- NOTE | 2021-04-05 14:22 | PM.PNNEP ---
Progress Note: A&P Additional Plan pt seen on dialysis. she feels a lot better. I am canceling the dose of EPOGEN today b/c of her bp. i spoke with her about 10-15 minutes explaining the consequences of kidney failure and symptoms. pt says she will do better and come /. she will be getting referred to the [facility] TO D/C THE PD LINE WHICH IS NOT AVAILABLE HERE. O/W I ASKED PT TO GO AHEAD AND MANAGER GAME THE SCRIPTS SENT TO HER PHARMACY ON FRIDAY FOR THE PHOSPHORUS AND POTASSIUM BINDERS. Subjective Date/time seen: 04/05/21 14:22 Objective Data Vital Signs Vital Signs: Vital Signs - 24 hr 04/04/21 14:31 04/04/21 15:41 04/04/21 21:06 Temperature Pulse Rate 88 93 Respiratory Rate 20 16 Blood Pressure Pulse Oximetry 94 94 04/04/21 21:13 04/04/21 22:00 04/05/21 06:00 Temperature 36.6 C 36.7 C Pulse Rate 90 95 93 Respiratory Rate 16 20 20 Blood Pressure 100/62 157/51 H Pulse Oximetry 96 97 04/05/21 07:48 04/05/21 08:00 Temperature Pulse Rate 93 91 Respiratory Rate 18 18 Blood Pressure Pulse Oximetry 95 95 Intake/Output Intake/Output: Intake & Output 04/02/21 04/03/21 04/04/21 04/05/21 23:59 23:59 23:59 23:59 Intake Total 910 2080 1550 650 Output Total 3000 1 3000 Balance -2090 2079 -1450 650 Meds/Results Medications: Active Medications Generic Name Dose Route Start Last Admin Trade Name Freq PRN Reason Stop Dose Admin Allopurinol 100 mg 04/01/21 08:00 04/05/21 08:59 Allopurinol 100 Mg Tablet PO 100 mg DAILY@0800 MONSERRAT Administration Alprazolam 0.25 mg 04/01/21 01:34 Alprazolam (*Crx) 0.25 Mg Tablet PO Q8H PRN Anxiety Ascorbic Acid 125 mg 04/01/21 09:00 04/05/21 08:59 Ascorbic Acid 125 Mg Tablet PO 05/01/21 08:59 125 mg DAILY MONSERRAT Administration Aspirin 81 mg 04/01/21 08:00 04/05/21 09:03 Aspirin 81 Mg Chewable Tablet PO 81 mg DAILY@0800 MONSERRAT Administration Atorvastatin Calcium 20 mg 04/01/21 09:00 04/05/21 09:00 Atorvastatin 20 Mg Tablet PO 20 mg QAM MONSERRAT Administration Calcium Acetate 1,334 mg 04/01/21 08:00 04/05/21 12:13 Calcium Acetate 667 Mg Tablet PO 1,334 mg TIDWM MONSERRAT Administration Dextrose 12.5 gm 03/31/21 22:35 Dextrose 50% 25 Gm/50 Ml Syringe IV PUSH PRN PRN Hypoglycemia Protocol Diphenhydramine HCl 25 mg 04/01/21 02:11 Diphenhydramine Hcl Cap 25 Mg Capsule PO HS PRN Insomnia Duloxetine HCl 30 mg 04/01/21 09:00 04/05/21 09:03 Duloxetine Hcl 30 Mg Capsule.Dr PO 30 mg QAM MONSERRAT Administration Glucagon 1 mg 03/31/21 22:35 Glucagon For Inj 1 Mg Vial IM PRN PRN Hypoglycemia Protocol Glucose 15 gm 03/31/21 22:35 Glucose Oral Gel 15 Gm Of Glucse In 37.5 Gm Tube PO PRN PRN Hypoglycemia Protocol Heparin Sodium (Porcine) 5,000 units 04/01/21 09:00 04/05/21 09:16 Heparin Sodium 5,000 Units/Ml Vial SUB-Q 5,000 units Q12HR MONSERRAT Administration Vancomycin HCl 1,500 mg in 500 mls @ 333.333 mls/hr 03/31/21 22:01 Vancomycin 1,500 Mg/D5w 500 Ml IVPB PRN PRN Kinetics Consult Piperacillin Sod/Tazobactam 50 mls @ 50 mls/hr 04/02/21 19:00 04/04/21 16:00 Sod 0.75 gm/ Dextrose IVPB Infused [id number] MONSERRAT Infusion Piperacillin Sod/Tazobactam Sod 2.25 gm in 50 mls @ 100 mls/hr 03/31/21 22:00 04/05/21 13:43 Zosyn 2.25 Gm/D5w 50 Ml IVPB 100 mls/hr Q8H MONSERRAT Administration Dextrose 1,000 mls @ 100 mls/hr 03/31/21 22:35 Dextrose 5% 1,000 Ml IVPB PRN PRN Hypoglycemia Protocol Insulin Aspart 2 - 5 units 04/01/21 08:00 04/05/21 12:14 Insulin Aspart (*Bkc) 100 Units/Ml SUB-Q Not Given TIDWM [facility] Protocol Insulin Glargine 4 units 04/01/21 21:00 04/04/21 22:00 Insulin Glargine (*Bkc) 100 Units/Ml SUB-Q 4 units HS MONSERRAT Administration Ipratropium [place] 0.5 mg 04/01/21 02:00 04/05/21 07:48 Ipratropium Br 0
[2021-04-05 14:34] VITALS: PULSE 93; RESP 18
[2021-04-05 14:43] VITALS: BP 103/55; PULSE 86; RESP 18; TEMP 36.6; O2SAT 98
[2021-04-05 14:45] VITALS: PULSE 94; RESP 18
== END 2021-04-05 15:19 | DRG 871 ==
LOC: ANHED 21:47 → ANH3MEDSUR 22:21
PROVIDERS: Internal Medicine Nephrology; Admitting Provider Internal Medicine; Emergency Provider Emergency Medicine; PCP Family Medicine; Visit Provider Nurse Practitioner
DX: A41.9 Sepsis, unspecified organism (principal); J18.9 Pneumonia, unspecified organism; N18.6 End stage renal disease; I13.2 Hypertensive heart and chronic kidney disease with heart failure and with stage 5 chronic kidney disease, or end stage renal disease; I50.32 Chronic diastolic (congestive) heart failure; J44.0 Chronic obstructive pulmonary disease with (acute) lower respiratory infection; Z20.822 Contact with and (suspected) exposure to COVID-19; E11.22 Type 2 diabetes mellitus with diabetic chronic kidney disease; Y95 Nosocomial condition; Z99.2 Dependence on renal dialysis; G47.33 Obstructive sleep apnea (adult) (pediatric); D86.9 Sarcoidosis, unspecified; E11.51 Type 2 diabetes mellitus with diabetic peripheral angiopathy without gangrene; E11.42 Type 2 diabetes mellitus with diabetic polyneuropathy; K80.20 Calculus of gallbladder without cholecystitis without obstruction; D63.8 Anemia in other chronic diseases classified elsewhere; I95.9 Hypotension, unspecified; I25.10 Atherosclerotic heart disease of native coronary artery without angina pectoris; M79.3 Panniculitis, unspecified; E66.9 Obesity, unspecified; Z68.32 Body mass index [BMI] 32.0-32.9, adult; R10.30 Lower abdominal pain, unspecified; K43.9 Ventral hernia without obstruction or gangrene; K74.60 Unspecified cirrhosis of liver; I25.2 Old myocardial infarction; Z66 Do not resuscitate; Z79.02 Long term (current) use of antithrombotics/antiplatelets; Z79.4 Long term (current) use of insulin; Z79.82 Long term (current) use of aspirin; Z79.899 Other long term (current) drug therapy; Z85.850 Personal history of malignant neoplasm of thyroid; Z87.891 Personal history of nicotine dependence; Z95.5 Presence of coronary angioplasty implant and graft; Z99.3 Dependence on wheelchair
CPT/HCPCS: 36415; 71045; 74018; 74176; 76705; 80053; 80069; 80074; 80202; 82140; 82565; 82948; 83605; 83690; 83735; 84484; 85025; 85027; 85610; 85730; 86140; 87040; 87426; 87804; 93005; 94640; 96360; 97161; 97165; 97535; 99285; A9270; C9803; G0257; J1644; J1815; J2543; J3370; J7030; Q5105; U0003; U0005

== ENCOUNTER 2021-04-24 09:03 | Outpatient (CLI) | payer MEDICARE, MEDICAID, SELFPAY ==
--- NOTE | ~2021-04-24 | US_ITS ---
EXAMINATION: US paracentesis abd w/image DATE: 04/24/2021 10:46 INDICATION: Ascites. TECHNIQUE: The procedure and its risks and benefits were discussed with the patient. Potential risks discussed included bleeding and infection. The skin was prepped and draped in sterile fashion. 1% lid ocaine was used for local anesthesia. Under ultrasound guidance, a 5 Fr catheter with trochar was adv anced into the ascites in the right lower quadrant. Fluid was aspirated into vacuum bottles. The cath eter was removed, and a dressing was applied. There were no immediate complications. FINDINGS: Ultrasound images demonstrate ascites and the catheter within the fluid. IMPRESSION: 1. Successful ultrasound-guided paracentesis yielding 950 mL of clear yellow fluid. Reviewed, dictated and finalized at location A. IMPRESSION: 1. Successful ultrasound-guided paracentesis yielding 950 mL of clear yellow f luid.
== END 2021-04-24 09:04 | disposition home or self-care (01) ==
PROVIDERS: PCP Family Medicine; Visit Provider Family Medicine
DX: I25.10 Atherosclerotic heart disease of native coronary artery without angina pectoris (principal)
CPT/HCPCS: 49083

== ENCOUNTER 2021-05-12 15:09 | Inpatient (IN) | payer MEDICARE, MEDICAID, SELFPAY ==
[2021-05-12] VITALS (13 sets, daily range): BP systolic 99–125; BP diastolic 43–104; PULSE 90–94; RESP 17–23; TEMP 37.2; O2SAT 96–100
--- NOTE | ~2021-05-12 | NM_ITS ---
EXAMINATION: NM hepatobiliary wo pharm DATE: 05/16/2021 10:52 INDICATION: Abdominal pain COMPARISON: None. TECHNIQUE: 5.5 mCi Tc-99m mebrofenin (Choletec) was administered intravenously. Patient coded during the examination and no images were recorded. FINDINGS/IMPRESSION: No recorded images due to patient coding during the examination. Reviewed, dictated and finalized at location A. R SERVICE DISPATCHER
--- NOTE | ~2021-05-12 | CT_ITS ---
EXAMINATION: CT abdomen pelvis wo con EXAM DATE: 05/12/2021 19:11 INDICATION: Elevated white blood cell, abdominal pain, elevated WBC. TECHNIQUE: Spiral CT of the abdomen and pelvis was performed without contrast. Axial, coronal and s agittal images of the abdomen and pelvis were reviewed. The dose-length product (DLP) for this exami nation was 1292.37 mGy-cm. The exposure was tailored according to patient size (auto mA exposure con trol), and iterative reconstruction (ASIR) was used as additional dose reduction technique. Compariso n is made to prior examination from 04/01/2021. FINDINGS: Small amount of ascites. Moderate amount of generalized body wall edema. Nodular cirrhotic appearing liver. Mild splenomegaly. Pancreas and adrenal glands are unremarkable. There is moderate bilateral renal atrophy. Gallbladder is distended with some layering debris or small gallstones. No adjacent inflammation and there was a similar appearance on prior study. No hydronephrosis. The marilynn sarita is not identified and has likely been surgically resected. The bladder is collapsed at time of i maging limiting evaluation. There is no retroperitoneal or pelvic lymphadenopathy. There is extens marcellus scattered arterial sclerotic disease. Regions of the colon have mild wall thickening, possible mild colitis The appendix is not positively visualized. There is no pericecal inflammatory change to suggest appendicitis. There is mild scatter ed colonic diverticulosis. There is no adjacent inflammatory change to suggest diverticulitis. There are surgical changes from intact gastric bypass surgery. There is expected amount of colonic stool. No free intraperitoneal gas. There is cardiomegaly. There are coronary artery stents. There is s mall to moderate left pleural effusion and adjacent segmental atelectasis. Trace right pleural effusi on and subsegmental atelectasis. Right hip gamma nail. IMPRESSION: 1. Possible mild colonic colitis. 2. Distended gallbladder with debris or small stones, unchanged. 3. Cirrhosis, splenomegaly, small ascites. 4. Small to moderate left, trace right pleural effusions with adjacent atelectasis. Reviewed, dictated and finalized at location A. ATIONAL COORDINATOR IMPRESSION: 1. Possible mild colonic colitis. 2. Distended gallbladder with debris or small stones, unchanged. 3. Cirrhosis, splenomegaly, small ascites. 4. Small to moderate left, trace right pleural effusions with adjacent atelect asis.
--- NOTE | ~2021-05-12 | XR_ITS ---
EXAMINATION: XR chest 1V portable EXAM DATE: 05/12/2021 17:35 INDICATION: SOB, COPD, CHF, HX 2 TIA, dialysis. TECHNIQUE: Portable AP frontal chest x-ray was obtained. Comparison is made to prior examination from 04/05/2021. FINDINGS: There is double-lumen dialysis catheter, left subclavian approach, tip projecting over cavo atrial junction, expected position. Left-sided coronary artery stent. Mild cardiomegaly. Small left p leural effusion. Left-sided retrocardiac segmental airspace disease has resolved. The bones are osteo penic. There are bony degenerative changes. IMPRESSION: 1. Cardiomegaly. Small left pleural effusion. 2. Resolution of previously seen left lower lobe consolidation. Reviewed, dictated and finalized at location A. UTIVE MANAGER
--- NOTE | ~2021-05-12 | CT_ITS ---
EXAMINATION: CT brain wo [facility] EXAM DATE: 05/12/2021 19:10 INDICATION: Fall, altered mental status. TECHNIQUE: Spiral CT of the head was performed without contrast. Axial, coronal and sagittal images were reviewed. The dose-length product (DLP) for this examination was 681.00 mGy-cm. The exposure w as tailored according to patient size, and iterative reconstruction (ASIR) was used as additional dos e reduction technique. Comparison is made to prior examination from 09/21/2020. FINDINGS: There is no acute intraparenchymal hemorrhage. No evidence of intraparenchymal brain mass lesion. No evidence of acute infarction. Please note that initial head CT has limited sensitivity f or small or acute infarctions. There is periventricular and subcortical hypodensity, nonspecific but probably related to small vessel ischemic disease. There is prominence of the sulci and ventricles related to cerebral atrophy. There is intracranial carotid arteriosclerosis. There are no extra-a xial collections. There is no mass effect or midline shift. The orbits are unremarkable. Soft tiss ue is unremarkable. The visualized sinuses and mastoid air cells are well aerated. IMPRESSION: 1. No acute intracranial findings. 2. Chronic age related findings. Reviewed, dictated and finalized at location A. [place] MERCHANDISER
--- NOTE | 2021-05-12 17:02 | PC.NURSE ---
PTs granddaughter Rena Deal requests a phone call if and when pt is discharged. Pts number is in contacts
--- NOTE | 2021-05-12 17:22 | ED.WEAKNESS ---
HPI - Weakness General Chief complaint: Weakness Stated complaint: weakness Time Seen by Provider: 05/12/21 16:10 Source: patient and EMS Mode of arrival: EMS Limitations: altered mental status History of Present Illness HPI Narrative: 70 year old female with history of ESRD, CHF, cirrhosis, elevated LFTs, LL pneumonia a month ago sent by family for generalized weakness, seen at [place] 2 days ago. History of cirrhosis, elevated liver enzymes, ESRD, dialysis MWF, recently admitted here for elevated WBC, presumed pneumonia vs cholecystitis. Patient with no complaints, states she's not sure why her family sent her here, and that the only thing she knows is that they were arguing about it. No family at bedside. Related Data Home Medications Medication Instructions Recorded Confirmed allopurinol 100 mg tablet 100 mg PO DAILY 08/18/19 05/13/21 trazodone 150 mg tablet 50 mg PO HS 08/18/19 05/13/21 insulin glargine 100 unit/mL 4 unit SUBCUT HS ml 10/25/20 05/13/21 subcutaneous solution midodrine 5 mg tablet 2.5 mg PO BID 10/25/20 05/13/21 ondansetron HCl 4 mg tablet 4 mg PO Q6H PRN 10/25/20 05/13/21 albuterol sulfate 2 puff INHALATION Q6H PRN 02/10/21 05/13/21 ascorbic acid (vitamin C) 500 mg PO DAILY 02/10/21 05/13/21 aspirin 81 mg PO DAILY 02/10/21 05/13/21 cholecalciferol (vitamin D3) 25 mcg PO BID 02/10/21 05/13/21 [Vitamin D3] levothyroxine 175 mcg PO DAILY 02/10/21 05/13/21 nystatin 1 applic TOPICAL BID 02/10/21 05/13/21 omeprazole 40 mg PO DAILY 02/10/21 05/13/21 polyethylene glycol 3350 [Miralax] 17 g PO DAILY 02/10/21 05/13/21 pregabalin 25 mg PO DAILY 02/10/21 05/13/21 ropinirole 2 mg PO BID 02/10/21 05/13/21 simethicone 180 mg PO BID PRN 02/10/21 05/13/21 diphenhydramine HCl 25 mg PO HS PRN 04/01/21 05/13/21 ticagrelor 90 mg PO BID 04/01/21 05/13/21 acetaminophen 650 mg PO Q6H PRN 05/13/21 05/13/21 budesonide-formoterol [Symbicort] 2 puff INHALATION Q12H 05/13/21 05/13/21 calcium carbonate 500 mg PO DAILY 05/13/21 05/13/21 collagenase clostridium histo. 1 applic TOPICAL DAILY 05/13/21 05/13/21 [Santyl] dicyclomine 20 mg PO TID 05/13/21 05/13/21 insulin lispro 1 sliding scale dose SUBCUT 05/13/21 05/13/21 USEASDIRECTD linagliptin [Tradjenta] 5 mg PO DAILY 05/13/21 05/13/21 menthol-zinc oxide 1 applic TOPICAL BID 05/13/21 05/13/21 metoprolol tartrate 6.25 mg PO BID 05/13/21 05/13/21 rosuvastatin 10 mg PO HS 05/13/21 05/13/21 senna-docusate sodium 1 cap PO HS 05/13/21 05/13/21 alprazolam 0.25 mg PO Q8H PRN 05/15/21 05/15/21 Allergies Allergy/AdvReac Type Severity Reaction Status Date / Time adhesive tape Allergy Unknown BLISTERS Verified 05/13/21 04:27 gabapentin Allergy Unknown restless Verified 05/13/21 04:27 leg latex Allergy Unknown Pruritic Verified 05/13/21 04:27 rash zolpidem Allergy Unknown Other Verified 05/13/21 04:27 Review of Systems Review of Systems: ROS unobtainable: Yes unobtainable due to mental status [facility] Past Medical History Medical History (Updated 05/29/21 @ 17:48 by Kitty Luis MD) Anemia of chronic disease 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 Mild concentric left ventricular hypertrophy. Pseudonormal diastolic dysfunction grade 2. Mild left atrial enlargement is. Mild mitral valve regurgitation. His mild aortic valve regurgitation. Mild pulmonary hypertension with RVSP of 40-45. Mild tricuspid regurgitation. Mild pulmonic regurgitation. DVT (deep venous thrombosis) End-stage renal disease on hemodialysis Friday Essential hypertension Gout Hepatitis History of peritoneal dialysis Per the patient only a few months prior to switching back to hemodialysis Obstructive sleep apnea Osteoporosis Peripheral
[2021-05-12 18:23] LABS: Basophils Absolute Auto 0.1 K/mm3 (0.0-0.1); Basophils Percent Auto 0.4 % (0.2-1.2); Eosinophils Absolute Auto 0.1 K/mm3 (0-0.3); Eosinophils Percent Auto 0.2 % (0-4.4); Hematocrit 27.6 % (37.0-47.0); Hemoglobin 8.6 g/dL (12.0-15.0); Immature Granulocyte Absolute 0.49 K/mm3 (0.00-0.031); Immature Granulocyte Percent A 1.7 % (0-0.5); Lymphocytes Absolute Auto 0.79 K/mm3 (0.9-3.2); Lymphocytes Percent Auto 2.7 % (18.3-44.2); Mean Corpuscular HGB Conc 31.2 g/dl (32-36); Mean Corpuscular Hemoglobin 33.3 pg (26-34); Mean Platelet Volume 10.7 fl (7.4-10.4); Monocytes Absolute Auto 0.9 K/mm3 (0.1-0.6); Neutrophils Absolute Auto 26.8 K/mm3 (1.3-6.7); Platelet Count Result 113 k/mm3 (150-375); Red Blood Count 2.58 M/mm3 (4.2-5.4); Red Cell Distribution Width 15.8 % (11.5-14.5); White Blood Count 29.1 K/mm3 (4.5-10.0)
[2021-05-12 18:33] LABS: Anion Gap 7 mmol/L (8-16); Blood Urea Nitrogen 24 mg/dL (7-17); Calcium 7.7 mg/dL (8.4-10.2); Carbon Dioxide 28 mmol/L (22-30); Chloride 97 mmol/L (98-107); Estimated CRCL calculation 14 ml/min; Estimated Glomerular Filt Rate 13; Glucose 180 mg/dL (65-110); Magnesium 1.7 mg/dL (1.6-2.3); Potassium 3.9 mmol/L (3.4-5.0); Sodium 132 mmol/L (137-145)
[2021-05-12 18:34] LABS: INR 1.5; Prothrombin Time 18.2 Seconds (11.1-14.7)
[2021-05-12 18:35] LABS: Partial Thromboplastin Time 41.7 SECONDS (22.3-36.8)
[2021-05-12 18:40] LABS: Ovalocytes 1+ (NORMAL); Platelet Estimate Decreased (Adequate)
[2021-05-12 18:56] LABS: Troponin I 0.024 ng/mL (0.000-0.034)
[2021-05-12 21:17] LABS: Alanine Aminotransferase 11 U/L (4-35); Albumin Level 2.7 g/dL (3.5-5.1); Alkaline Phosphatase 179 U/L (38-126); Aspartate Amino Transferase 15 U/L (14-36); Bilirubin,Total 1.6 mg/dL (0.2-1.3)
[2021-05-12 21:21] LABS: Lipase < 10 U/L (23-300)
[2021-05-12 22:51] LABS: Ammonia < 9 umol/L (9-30)
[2021-05-12] MEDS: MORPHINE SULFATE (*CRX) 2 MG/ML INJ IV PUSH (23:51)
[2021-05-12] MEDS: ONDANSETRON INJ 4 MG/2 ML VIAL IV PUSH (23:51)
[2021-05-13] VITALS (22 sets, daily range): BP systolic 95–118; BP diastolic 34–87; PULSE 81–97; RESP 16–22; TEMP 36.6–37.8; O2SAT 90–100; BMI 37.0
[2021-05-13] MEDS: metroNIDAZOLE 250 MG TABLET 500 MG PO (01:55)
--- NOTE | 2021-05-13 07:20 | PM.IMHP ---
H&P: HPI History of Present Illness Date/Time: 05/13/21 06:30 Chief Complaint: ?Not acting right? Narrative: 70-year-old female with past medical history of end-stage renal disease on hemodialysis Friday, CHF, recent trans valvular surgery on 2 separate bowels in January, COPD, coronary artery disease, obstructive sleep apnea, sarcoidosis, and diabetes who presented to the hospital via EMS from home due to ?not acting right?. The patient had been treated at outside hospital for simultaneous transvalvular repair of 2 different cardiac valves in February. She was discharged to the [facility] from rehabilitation. She was evaluated in the hospital 03/31/2021 through 04/05/2021 for pneumonia. She was discharged back to the [facility] facility and continue their until 05/08/2021. She was then evaluated at [place] [facility] and discharged home from the ER. The family thought that she had recurrent pneumonia and had center to [facility]. [facility] discharge her and center back home via ambulance without notifying the family so they were not happy. The patient states that she was given antibiotic for pneumonia at that time. The patient had a CT scan performed in the ER which demonstrated resolution of her prior pneumonia from March. It demonstrated persistent gallbladder dilatation and sludge unchanged from prior. She also had some subtle changes of the bowel possibly consistent with colitis but again unchanged from previous. She had been having some diarrhea several days ago for a couple of days. She reports that she has not been taking her lactulose. She took 1 dose of Imodium and has not had a bowel movement since that time. She reports that her abdomen always hurts and the pain is unchanged from baseline. 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 She has a chronic small necrotic area to the tip of the middle finger as well. 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 All of these wounds are unchanged from baseline. The patient has had a left buttock wound and a coccygeal ulcers since she was at the assisted. She is receiving wound care note a regular basis for these wounds. She has had drainage from the left hip wound the is blue to purplish in color and foul smelling. The family thinks that the wound is looking worse instead of better with wound care. The patient had had prior debridement of the wound during her recent hospitalization in March. The patient was initially afebrile in the ER but is spiked a fever up to 100.1 this morning. She has extensive bruising noted to bilateral breasts that she reports occurred when EMS picked her up from home they lifted her under her arms and pinched her bilateral breast. She denies any significant pain of her breast. She has not made urine in approximately 5 years. She has intermittent nausea on a daily basis that is unchanged from baseline. She reports severe burning pain in her lower extremities with a history of neuropathy. She is requesting pain medications. She is tremulous and she states that this is due to being in pain. She denies any cough or congestion. She is tachypneic but denies significant shortness of breath. She has been on oxygen since her cardiac procedures in February. When she was discharged from the hospital in March with had managed to wean her oxygen back often when she returned to the assisted they put her back on 2 L nasal cannula. The patient is alert oriented x3 but does seem to have some minor moments of confusion. Review of Systems Review of Systems: 12 systems were reviewed with pertinent positives and negatives per HPI. Except as documented in the HPI, all other systems were reviewed and are negative. [facility] Past Medical History Medical History (Updated
--- NOTE | 2021-05-13 07:59 | PC.NURSE ---
This patient, Yolanda Conway, was admitted to IMU Room 203-01. Patient/family oriented to hospital policies and general routines including ID bracelet, bed and alarms, visiting hours, pain management, procedures, bathroom and other care routines, personal items, smoking policy, room service/diet, and visiting hours. Information on how to activate the Rapid Response Team has been discussed. Patient/Family are encouraged to report perceived risks to care and to ask questions if they do not understand what they are told or what they should do.
[2021-05-13 08:29] LABS: Basophils Absolute Auto 0.1 K/mm3 (0.0-0.1); Basophils Percent Auto 0.4 % (0.2-1.2); Eosinophils Absolute Auto 0.1 K/mm3 (0-0.3); Eosinophils Percent Auto 0.3 % (0-4.4); Hematocrit 25.2 % (37.0-47.0); Hemoglobin 7.7 g/dL (12.0-15.0); Immature Granulocyte Absolute 0.85 K/mm3 (0.00-0.031); Immature Granulocyte Percent A 3.1 % (0-0.5); Lymphocytes Absolute Auto 0.73 K/mm3 (0.9-3.2); Lymphocytes Percent Auto 2.6 % (18.3-44.2); Mean Corpuscular HGB Conc 30.6 g/dl (32-36); Mean Corpuscular Volume 108.2 fl (80-100); Mean Platelet Volume 11.2 fl (7.4-10.4); Monocytes Absolute Auto 0.9 K/mm3 (0.1-0.6); Monocytes Percent Auto 3.2 % (2.6-8.5); Neutrophils Percent Auto 90.4 % (45.5-73.1); Platelet Count Result 106 k/mm3 (150-375); Red Blood Count 2.33 M/mm3 (4.2-5.4); Red Cell Distribution Width 15.9 % (11.5-14.5); White Blood Count 27.7 K/mm3 (4.5-10.0)
[2021-05-13 08:50] LABS: Alanine Aminotransferase 10 U/L (4-35); Albumin Level 2.4 g/dL (3.5-5.1); Alkaline Phosphatase 139 U/L (38-126); Anion Gap 9 mmol/L (8-16); Aspartate Amino Transferase 12 U/L (14-36); Bilirubin,Total 1.7 mg/dL (0.2-1.3); Blood Urea Nitrogen 29 mg/dL (7-17); Calcium 7.4 mg/dL (8.4-10.2); Carbon Dioxide 24 mmol/L (22-30); Chloride 98 mmol/L (98-107); Estimated CRCL calculation 12 ml/min; Estimated Glomerular Filt Rate 12; Glucose 138 mg/dL (65-110); Potassium 4.1 mmol/L (3.4-5.0); Sodium 131 mmol/L (137-145)
--- NOTE | 2021-05-13 09:07 | PM.CNNEP ---
Assessment and Plan Assessment and plan (1) Sepsis: Qualifiers: Sepsis type: sepsis due to unspecified organism Sepsis acute organ dysfunction status: unspecified Qualified Code(s): A41.9 - Sepsis, unspecified organism Code(s): A41.9 - Sepsis, unspecified organism Status: Acute (2) Liver cirrhosis: Code(s): K74.60 - Unspecified cirrhosis of liver Status: Acute (3) Obesity (BMI 30-39.9): Code(s): E66.9 - Obesity, unspecified Status: Acute (4) Lower abdominal pain: Code(s): R10.30 - Lower abdominal pain, unspecified Status: Acute (5) Cholelithiasis: Code(s): K80.20 - Calculus of gallbladder without cholecystitis without obstruction Status: Acute (6) Pneumonia: Qualifiers: Laterality: unspecified laterality Lung location: unspecified part of lung Pneumonia type: due to unspecified organism Qualified Code(s): J18.9 - Pneumonia, unspecified organism Code(s): J18.9 - Pneumonia, unspecified organism Status: Acute (7) End stage renal disease: Code(s): N18.6 - End stage renal disease Status: Acute (8) T2DM (type 2 diabetes mellitus): Qualifiers: Diabetes mellitus ocean [employer] intermediary insulin use: with fdc use Diabetes mellitus complication status: with neurologic complications Diabetes mellitus complication detail: with polyneuropathy Qualified Code(s): E11.42 - Type 2 diabetes mellitus with diabetic polyneuropathy; Z79.4 - assistant terminal manager (current) use of insulin Code(s): E11.9 - Type 2 diabetes mellitus without complications Status: Acute (9) Wheelchair dependence: Code(s): Z99.3 - Dependence on wheelchair Status: Acute (10) COPD (chronic obstructive pulmonary disease): Code(s): J44.9 - Chronic obstructive pulmonary disease, unspecified Status: Acute (11) Ventral hernia: Code(s): K43.9 - Ventral hernia without obstruction or gangrene Status: Acute (12) Antiplatelet or antithrombotic long-term use: Code(s): Z79.02 - [facility] (current) use of antithrombotics/antiplatelets Status: Acute (13) Hypotension: Code(s): I95.9 - Hypotension, unspecified Status: Acute Additional Plan 1. CHECK COVID-19 2. CHECK STOOLS FOR DIARRHEA 3. DVT PROPHYLAXIS. 4. HD TOMORROW 5. BROAD SPECTRUM ABX TO BE NARROWED DOWN DEPENDENT ON HER RESULTS. 6. STRONGLY CONSIDER ID CONSULT. 7. REC STOPPING LYRICA? POSS HAS BUILD-UP AND CAUSED THE SEDATION AND TREMORS History of Present Illness Reason for Consult Consult date: 05/13/21 Chief Complaint Chief complaint: Leukocytosis, Left pleural effusion, ESRD, [facility] History of Present Illness Narrative: 70 yo MORBIDLY OBESE WF WITH MULTIPLE MEDICAL PROBLEMS INCLUDING ESRD ON HD MWF AT [facility] [phone], DIASTOLIC CHF ECHO 2018 GRADE 2 WITH PRESERVED EF 70-75%, COPD, CAD, NATALI, SARCOIDOSIS, LARGE ABD PANNUS UNABLE TO HAVE INTERVENTION DUE TO POOR FUNCTIONAL STATE, ANEMIA OF CHRONIC DISASE, BILATERAL STEAL SYNDROME (LEFT AVF HAD TO BE LIGATED AFTER A TUMOR BY THE FISTULA WAS REMOVED THEN PT DEVELOPED DIGITAL ISCHEMIA AND RIGHT AVF PLACED AND THEN LIGATED JUST 3 DAYS LATER B/C OF STEAL SYNDROME- CAUSING HER TO LOOSE PARTS OF MULTIPLE FINGERS LEFT 2ND AND 4TH AND ALSO SOME ON THE RIGHT BUT NEEDS ADDITIONAL PARTIAL REMOVAL), CHRONIC INFECTION OF RIGHT HIP, CHRONIC RIGHT LEG WOUND WITH PLAQUE, CALCIPHYLAXIS (COMPLETED 3 MONTHS OF SODIUM THIOSULFATE ALONG WITH IMPROVED CONTROL OF PHOS, CA, PTH JUST ABOUT 2 -3 MONTHS AGO) AND CHRONIC WOUNDS TO HER ABDOMEN SKIN, THIGHS AND LEGS. REVIEWED H&P BUT I DO NOT RECALL HER HAVING RECENT TRANSVALVULAR SURGERY ON 2 SEPARATE ?BOWELS?/?VALVES IN JANUARY OF THIS YEAR. I SAW HER AT DIALYSIS ON FRIDAY AND WAS VERY DISAPPOINTED TO FIND OUT SHE IS BACK HOME AFTER HER LAST HOSPITALIZATION MAR 31 WITH PNEUMONIA THEN TO REHAB UNTIL MAY 08, 2021 SHE WAS WEAK CONFUSED AND CLEARLY
[2021-05-13] MEDS: traMADol HCL (*CRX) 50 MG TABLET PO ×2 (09:13→18:30)
[2021-05-13] MEDS: allopurinoL 100 MG TABLET PO (09:15)
[2021-05-13] MEDS: MIDODRINE HCL 2.5 MG TABLET PO ×3 (09:15→18:27)
[2021-05-13] MEDS: rOPINIRole HCL 1 MG TABLET PO ×2 (09:16→21:11)
--- NOTE | 2021-05-13 12:07 | PC.NURSE ---
Spoke to Richie in dialysis. Patient is on the list to get dialysis tomorrow (Monday 05/14).
[2021-05-13 12:15] LABS: Glucose Point of Care 152 mg/dl (65-105)
[2021-05-13] MEDS: ASPIRIN 81 MG CHEWABLE TABLET PO (12:41)
[2021-05-13] MEDS: TICAGRELOR 90 MG TABLET PO ×2 (12:41→21:12)
[2021-05-13] MEDS: COLLAGENASE OINT 30 GM TUBE 1 APPLIC TOPICAL (12:42)
[2021-05-13] MEDS: CHOLECALCIFEROL 1,000 UNITS TABLET 1000 UNITS PO ×2 (12:42→18:26)
[2021-05-13] MEDS: PANTOPRAZOLE 40 MG TABLET PO ×2 (12:42→21:11)
[2021-05-13] MEDS: ASCORBIC ACID 500 MG TABLET PO (12:42)
[2021-05-13] MEDS: DICYCLOMINE HCL 10 MG CAPSULE 20 MG PO ×2 (12:42→18:27)
[2021-05-13] MEDS: MICONAZOLE NITRATE 2% CREAM 30 GM TUBE 1 APPLIC TOPICAL ×2 (12:42→18:28)
[2021-05-13] MEDS: polyethylene glycoL 3350 17 GM POWD.PACK PO (12:43)
[2021-05-13] MEDS: ACETAMINOPHEN 325 MG TABLET 650 MG PO (12:54)
[2021-05-13] MEDS: ALBUTEROL SULFATE NEB 2.5 MG/3 ML INH 1.25 MG INHALATION ×2 (14:24→20:33)
--- NOTE | 2021-05-13 15:41 | PM.IMPN ---
Subjective Date/time seen: 05/13/21 15:41 Interval history: 70-year-old female with past medical history of end-stage renal disease on hemodialysis Friday, CHF, recent trans valvular surgery on 2 separate bowels in January, COPD, coronary artery disease, obstructive sleep apnea, sarcoidosis, and diabetes who presented to the hospital via EMS from home due to ?not acting right?. The patient had been treated at outside hospital for simultaneous transvalvular repair of 2 different cardiac valves in February. She was discharged to the [facility] from rehabilitation. Pt admitted this morning, pt seen and examined, labs reviwed. Agree with history and physical from this morning at 630 am. Pt admitted with sepsis, ESRD and DM. Pt is a covid rule out. Pt looks less confused now, fever is down, breathing better, HER CAT SCAN DONE IN ER IS CONCERNING FOR CHRONIC CHOLECYSTITIS WITH STONES AND COLITIS. CAN DC TELE . Objective Data Vital Signs Vital Signs: Vital Signs - 24 hr 05/12/21 15:47 05/12/21 16:02 05/12/21 16:16 Temperature Pulse Rate 92 93 90 Respiratory Rate 19 23 H 20 Blood Pressure 106/77 125/69 123/104 H Pulse Oximetry 05/12/21 16:32 05/12/21 16:46 05/12/21 17:00 Temperature Pulse Rate 90 92 93 Respiratory Rate 22 H 18 18 Blood Pressure 121/96 H 125/101 H 99/43 L Pulse Oximetry 97 05/12/21 18:15 05/12/21 18:31 05/12/21 21:05 Temperature Pulse Rate 93 Respiratory Rate 18 Blood Pressure 100/85 112/78 121/55 L Pulse Oximetry 100 100 05/12/21 21:13 05/12/21 21:52 05/12/21 23:50 Temperature Pulse Rate 93 93 Respiratory Rate 22 H 22 H Blood Pressure 111/56 L 118/69 Pulse Oximetry 99 96 100 05/13/21 02:18 05/13/21 02:24 05/13/21 03:00 Temperature 37.1 C Pulse Rate 94 91 97 Respiratory Rate 16 22 H Blood Pressure 100/87 95/34 L Pulse Oximetry 100 100 05/13/21 04:03 05/13/21 06:00 05/13/21 07:01 Temperature 37.8 C H Pulse Rate 89 90 88 Respiratory Rate 19 Blood Pressure 110/62 Pulse Oximetry 100 05/13/21 08:00 05/13/21 10:03 05/13/21 12:00 Temperature 36.7 C Pulse Rate 89 88 Respiratory Rate 22 H Blood Pressure 104/45 L Pulse Oximetry 99 100 98 05/13/21 12:43 05/13/21 14:00 05/13/21 14:24 Temperature 36.7 C Pulse Rate 90 81 Respiratory Rate 18 Blood Pressure Pulse Oximetry 05/13/21 14:29 05/13/21 14:31 Temperature Pulse Rate 83 Respiratory Rate 18 Blood Pressure Pulse Oximetry 93 Intake/Output Intake/Output: Intake & Output 05/10/21 05/11/21 05/12/21 05/13/21 23:59 23:59 23:59 23:59 Intake Total 50 470 Balance 50 470 Meds/Results Medications: Active Medications Generic Name Dose Route Start Last Admin Trade Name Freq PRN Reason Stop Dose Admin Acetaminophen 650 mg 05/13/21 07:22 05/13/21 12:54 Acetaminophen 325 Mg Tablet PO 650 mg Q6H PRN Administration Pain (Scale Score 1-3) Albuterol 1.25 mg 05/13/21 09:40 05/13/21 14:24 Albuterol Sulfate Neb 2.5 Mg/3 Ml Inh INHALATION 1.25 mg Q6HRT MONSERRAT Administration Allopurinol 100 mg 05/13/21 09:00 05/13/21 09:15 Allopurinol 100 Mg Tablet PO 100 mg DAILY MONSERRAT Administration Ascorbic Acid 500 mg 05/13/21 09:00 05/13/21 12:42 Ascorbic Acid 500 Mg Tablet PO 500 mg QAM MONSERRAT Administration Aspirin 81 mg 05/13/21 08:00 05/13/21 12:41 Aspirin 81 Mg Chewable Tablet PO 81 mg DAILY@0800 MONSERRAT Administration Collagenase 1 applic 05/13/21 09:00 05/13/21 12:42 Collagenase Oint 30 Gm Tube TOPICAL 1 applic DAILY MONSERRAT Administration Dextrose 12.5 gm 05/13/21 08:02 Dextrose 50% 25 Gm/50 Ml Syringe IV PUSH PRN PRN Hypoglycemia Protocol Dicyclomine HCl 20 mg 05/13/21 09:00 05/13/21 12:44 Dicyclomine Hcl 10 Mg Capsule PO Not Given TID [facility] Diphenhydramine HCl 25 mg 05/13/21 08:26 Diphenhydramine Hcl Cap 25 Mg Capsule PO H
[2021-05-13 16:12] LABS: Glucose Point of Care 137 mg/dl (65-105)
[2021-05-13] MEDS: FLUTICASONE/SALMETEROL 115-21 MCG INHALER 1 PUFF 2 PUFF INHALATION (20:34)
[2021-05-13] MEDS: ROSUVASTATIN 10 MG TABLET PO (21:12)
[2021-05-13] MEDS: INSULIN GLARGINE (*BKC) 100 UNITS/ML SUB-Q (21:12)
[2021-05-13] MEDS: metroNIDAZOLE 500 MG/ISO 100ML 500 MG/100 ML BAG 100 MG IVPB (21:12)
[2021-05-13] MEDS: traZODone HCL 50 MG TABLET PO (21:12)
[2021-05-13 21:13] LABS: Glucose Point of Care 131 mg/dl (65-105)
[2021-05-14] VITALS (30 sets, daily range): BP systolic 89–131; BP diastolic 29–68; PULSE 81–117; RESP 16–22; TEMP 35.5–36.8; O2SAT 94–100; BMI 38.3
[2021-05-14] MEDS: ALBUTEROL SULFATE NEB 2.5 MG/3 ML INH 1.25 MG INHALATION ×4 (02:29→20:59)
[2021-05-14 05:04] LABS: Albumin Level 2.4 g/dL (3.5-5.1); Anion Gap 9 mmol/L (8-16); Blood Urea Nitrogen 37 mg/dL (7-17); Calcium 7.6 mg/dL (8.4-10.2); Carbon Dioxide 27 mmol/L (22-30); Chloride 98 mmol/L (98-107); Estimated CRCL calculation 10 ml/min; Estimated Glomerular Filt Rate 9; Glucose 97 mg/dL (65-110); Phosphorus 4.5 mg/dL (2.5-4.5); Potassium 3.9 mmol/L (3.4-5.0); Sodium 134 mmol/L (137-145)
[2021-05-14 05:45] LABS: Hepatitis B Surface Antigen Negative (Negative)
[2021-05-14 06:02] LABS: Hepatitis B Surface Anti Res Negative
[2021-05-14] MEDS: LEVOTHYROXINE SODIUM 100 MCG, LEVOTHYROXINE SODIUM 75 MCG 175 MCG PO (06:12)
[2021-05-14 08:26] LABS: Glucose Point of Care 113 mg/dl (65-105)
[2021-05-14] MEDS: DICYCLOMINE HCL 10 MG CAPSULE 20 MG PO ×2 (09:21→12:27)
[2021-05-14] MEDS: CHOLECALCIFEROL 1,000 UNITS TABLET 1000 UNITS PO (09:21)
[2021-05-14] MEDS: PANTOPRAZOLE 40 MG TABLET PO ×2 (09:21→20:15)
[2021-05-14] MEDS: TICAGRELOR 90 MG TABLET PO ×2 (09:21→20:17)
[2021-05-14] MEDS: rOPINIRole HCL 1 MG TABLET PO ×2 (09:21→20:16)
[2021-05-14] MEDS: ASCORBIC ACID 500 MG TABLET PO (09:21)
[2021-05-14] MEDS: metroNIDAZOLE 500 MG/ISO 100ML 500 MG/100 ML BAG 100 MG IVPB ×2 (09:21→20:07)
[2021-05-14] MEDS: MIDODRINE HCL 2.5 MG TABLET PO ×2 (09:21→12:28)
[2021-05-14] MEDS: allopurinoL 100 MG TABLET PO (09:22)
[2021-05-14] MEDS: ASPIRIN 81 MG CHEWABLE TABLET PO (09:22)
[2021-05-14] MEDS: MICONAZOLE NITRATE 2% CREAM 30 GM TUBE 1 APPLIC TOPICAL (09:23)
[2021-05-14] MEDS: FLUTICASONE/SALMETEROL 115-21 MCG INHALER 1 PUFF 2 PUFF INHALATION ×2 (09:23→20:59)
[2021-05-14] MEDS: COLLAGENASE OINT 30 GM TUBE 1 APPLIC TOPICAL (09:23)
--- NOTE | 2021-05-14 09:43 | PM.IMPN ---
Subjective Date/time seen: 05/14/21 09:43 Objective Data Vital Signs Vital Signs: Vital Signs - 24 hr 05/13/21 10:03 05/13/21 12:00 05/13/21 12:43 Temperature 98.1 F 98.1 F Pulse Rate 88 Respiratory Rate 22 H Blood Pressure 104/45 L Pulse Oximetry 100 98 05/13/21 14:00 05/13/21 14:24 05/13/21 14:29 Temperature Pulse Rate 90 81 Respiratory Rate 18 Blood Pressure Pulse Oximetry 93 05/13/21 14:31 05/13/21 16:00 05/13/21 18:00 Temperature 98.1 F Pulse Rate 83 85 86 Respiratory Rate 18 22 H Blood Pressure 118/50 L Pulse Oximetry 95 05/13/21 20:00 05/13/21 20:34 05/13/21 20:35 Temperature 98.4 F Pulse Rate 84 84 84 Respiratory Rate 20 18 Blood Pressure 102/48 L Pulse Oximetry 95 95 05/13/21 20:52 05/13/21 22:00 05/13/21 23:26 Temperature 98 F Pulse Rate 85 82 87 Respiratory Rate 18 20 Blood Pressure 105/61 Pulse Oximetry 95 05/14/21 00:00 05/14/21 02:00 05/14/21 02:29 Temperature Pulse Rate 84 82 88 Respiratory Rate 20 18 Blood Pressure Pulse Oximetry 95 05/14/21 02:49 05/14/21 04:00 05/14/21 06:00 Temperature 97.8 F Pulse Rate 86 90 88 Respiratory Rate 18 20 Blood Pressure 109/58 L Pulse Oximetry 94 05/14/21 08:00 05/14/21 09:23 05/14/21 09:37 Temperature 97.5 F L Pulse Rate 94 97 99 Respiratory Rate 16 18 18 Blood Pressure 103/57 L Pulse Oximetry 100 05/14/21 09:38 Temperature Pulse Rate 99 Respiratory Rate 18 Blood Pressure Pulse Oximetry 95 Intake/Output Intake/Output: Intake & Output 05/11/21 05/12/21 05/13/21 05/14/21 23:59 23:59 23:59 23:59 Intake Total 50 910 Output Total 0 0 Balance 50 910 0 Meds/Results Medications: Active Medications Generic Name Dose Route Start Last Admin Trade Name Freq PRN Reason Stop Dose Admin Acetaminophen 650 mg 05/13/21 07:22 11/21/21 12:54 Acetaminophen 325 Mg Tablet PO 650 mg Q6H PRN Administration Pain (Scale Score 1-3) Albuterol 1.25 mg 05/13/21 09:40 05/14/21 09:23 Albuterol Sulfate Neb 2.5 Mg/3 Ml Inh INHALATION 1.25 mg Q6HRT MONSERRAT Administration Allopurinol 100 mg 05/13/21 09:00 05/14/21 09:22 Allopurinol 100 Mg Tablet PO 100 mg DAILY MONSERRAT Administration Ascorbic Acid 500 mg 05/13/21 09:00 05/14/21 09:21 Ascorbic Acid 500 Mg Tablet PO 500 mg QAM MONSERRAT Administration Aspirin 81 mg 05/13/21 08:00 05/14/21 09:22 Aspirin 81 Mg Chewable Tablet PO 81 mg DAILY@0800 MONSERRAT Administration Collagenase 1 applic 05/13/21 09:00 05/14/21 09:23 Collagenase Oint 30 Gm Tube TOPICAL 1 applic DAILY MONSERRAT Administration Dextrose 12.5 gm 05/13/21 08:02 Dextrose 50% 25 Gm/50 Ml Syringe IV PUSH PRN PRN Hypoglycemia Protocol Dicyclomine HCl 20 mg 05/13/21 09:00 05/14/21 09:21 Dicyclomine Hcl 10 Mg Capsule PO 20 mg TID MONSERRAT Administration Diphenhydramine HCl 25 mg 05/13/21 08:26 Diphenhydramine Hcl Cap 25 Mg Capsule PO HS PRN Insomnia Glucagon 1 mg 05/13/21 08:02 Glucagon For Inj 1 Mg Vial IM PRN PRN Hypoglycemia Protocol Glucose 15 gm 05/13/21 08:02 Glucose Oral Gel 15 Gm Of Glucse In 37.5 Gm Tube PO PRN PRN Hypoglycemia Protocol Metronidazole 500 mg in 100 mls @ 100 mls/hr 05/13/21 08:00 05/14/21 09:21 Flagyl 500 Mg/Iso Soln 100 Ml IVPB 100 mls/hr Q6H MONSERRAT Administration Piperacillin Sod/Tazobactam Sod 2.25 gm in 50 mls @ 100 mls/hr 05/13/21 05:00 05/14/21 06:06 Zosyn 2.25 Gm/D5w 50 Ml IVPB Not Given Q8H MONSERRAT Piperacillin Sod/Tazobactam 50 mls @ 50 mls/hr 05/14/21 18:00 Sod 0.75 gm/ Dextrose IVPB [id number] MONSERRAT Dextrose 1,000 mls @ 100 mls/hr 05/13/21 08:02 Dextrose 5% 1,000 Ml IVPB PRN PRN Hypoglycemia Protocol Albumin Human 50 mls @ 999 mls/hr 05/14/21 07:00 Albutein IVPB 05/15/21 06:59 Q10M PRN HYPOTENSION Insulin Aspar
[2021-05-14] MEDS: TOLNAFTATE 1% POWDER 45 GM BTL 1 APPLIC TOPICAL ×2 (12:28→20:17)
[2021-05-14 12:53] LABS: Glucose Point of Care 106 mg/dl (65-105)
[2021-05-14 14:54] LABS: EDCOVIDSCREEN Negative (Negative)
[2021-05-14 16:37] LABS: Glucose Point of Care 101 mg/dl (65-105)
[2021-05-14] MEDS: EPOETIN ALFA-EPBX 20,000 UNITS/ML VIAL 20000 UNITS IV PUSH (18:04)
--- NOTE | 2021-05-14 18:08 | PC.NURSE ---
This patient, Yolanda Conway, was admitted to 3 Med Surg Room 331-01 @ 1808, pt currently at dialysis, transfered from IMU on covid precautions awaiting PCR resolves. Patient/family oriented to hospital policies and general routines including ID bracelet, bed and alarms, visiting hours, pain management, procedures, bathroom and other care routines, personal items, smoking policy, room service/diet, and visiting hours. Information on how to activate the Rapid Response Team has been discussed. Patient/Family are encouraged to report perceived risks to care and to ask questions if they do not understand what they are told or what they should do.
[2021-05-14 18:36] LABS: SARS-CoV-2 RNA PCR Negative
[2021-05-14 19:30] LABS: Glucose Point of Care 108 mg/dl (65-105)
[2021-05-14] MEDS: ROSUVASTATIN 10 MG TABLET PO (20:16)
[2021-05-14] MEDS: traZODone HCL 50 MG TABLET PO (20:17)
[2021-05-14] MEDS: PREGABALIN (*CRX) 25 MG CAPSULE PO (20:26)
[2021-05-14] MEDS: INSULIN GLARGINE (*BKC) 100 UNITS/ML SUB-Q (21:29)
[2021-05-14 21:42] LABS: Glucose Point of Care 143 mg/dl (65-105)
[2021-05-14] MEDS: traMADol HCL (*CRX) 50 MG TABLET PO (23:50)
[2021-05-15] VITALS (13 sets, daily range): BP systolic 105–117; BP diastolic 44–66; PULSE 55–138; RESP 18–26; TEMP 36.3–36.6; O2SAT 85–100
[2021-05-15] MEDS: ALBUTEROL SULFATE NEB 2.5 MG/3 ML INH 1.25 MG INHALATION ×3 (02:27→13:55)
[2021-05-15] MEDS: metroNIDAZOLE 500 MG/ISO 100ML 500 MG/100 ML BAG 100 MG IVPB ×3 (02:47→17:23)
[2021-05-15] MEDS: LEVOTHYROXINE SODIUM 100 MCG, LEVOTHYROXINE SODIUM 75 MCG 175 MCG PO (05:35)
[2021-05-15 07:51] LABS: Glucose Point of Care 107 mg/dl (65-105)
[2021-05-15 09:19] LABS: Basophils Percent Auto 0.1 % (0.2-1.2); Hematocrit 23.4 % (37.0-47.0); Hemoglobin 7.5 g/dL (12.0-15.0); Immature Granulocyte Absolute 0.28 K/mm3 (0.00-0.031); Immature Granulocyte Percent A 1.1 % (0-0.5); Lymphocytes Absolute Auto 0.51 K/mm3 (0.9-3.2); Lymphocytes Percent Auto 1.9 % (18.3-44.2); Mean Corpuscular HGB Conc 32.1 g/dl (32-36); Mean Corpuscular Hemoglobin 32.6 pg (26-34); Mean Corpuscular Volume 101.7 fl (80-100); Monocytes Absolute Auto 0.8 K/mm3 (0.1-0.6); Monocytes Percent Auto 3.1 % (2.6-8.5); Neutrophils Absolute Auto 24.5 K/mm3 (1.3-6.7); Neutrophils Percent Auto 93.8 % (45.5-73.1); Platelet Count Result 118 k/mm3 (150-375); Red Cell Distribution Width 15.8 % (11.5-14.5); White Blood Count 26.2 K/mm3 (4.5-10.0)
[2021-05-15] MEDS: ASPIRIN 81 MG CHEWABLE TABLET PO (09:24)
[2021-05-15] MEDS: DICYCLOMINE HCL 10 MG CAPSULE 20 MG PO ×2 (09:25→13:49)
[2021-05-15] MEDS: SIMETHICONE 125 MG CHEW TAB PO (09:25)
[2021-05-15] MEDS: polyethylene glycoL 3350 17 GM POWD.PACK PO (09:25)
[2021-05-15] MEDS: allopurinoL 100 MG TABLET PO (09:26)
[2021-05-15] MEDS: rOPINIRole HCL 1 MG TABLET PO ×2 (09:26→22:30)
[2021-05-15] MEDS: CHOLECALCIFEROL 1,000 UNITS TABLET 1000 UNITS PO (09:26)
[2021-05-15] MEDS: TICAGRELOR 90 MG TABLET PO ×2 (09:26→22:30)
[2021-05-15] MEDS: MIDODRINE HCL 2.5 MG TABLET PO ×2 (09:26→13:49)
[2021-05-15] MEDS: ASCORBIC ACID 500 MG TABLET PO (09:26)
[2021-05-15] MEDS: MICONAZOLE NITRATE 2% CREAM 30 GM TUBE 1 APPLIC TOPICAL (09:27)
[2021-05-15] MEDS: PANTOPRAZOLE 40 MG TABLET PO ×2 (09:27→22:29)
[2021-05-15] MEDS: COLLAGENASE OINT 30 GM TUBE 1 APPLIC TOPICAL (09:28)
[2021-05-15] MEDS: TOLNAFTATE 1% POWDER 45 GM BTL 1 APPLIC TOPICAL ×2 (09:28→22:31)
[2021-05-15] MEDS: FLUTICASONE/SALMETEROL 115-21 MCG INHALER 1 PUFF 2 PUFF INHALATION (10:31)
--- NOTE | 2021-05-15 10:32 | PCRCNOTE ---
Window of time for administration has passed. See next scheduled administration.
[2021-05-15 11:34] LABS: Alanine Aminotransferase 10 U/L (4-35); Albumin Level 2.3 g/dL (3.5-5.1); Alkaline Phosphatase 141 U/L (38-126); Anion Gap 11 mmol/L (8-16); Aspartate Amino Transferase 20 U/L (14-36); Bilirubin,Total 1.7 mg/dL (0.2-1.3); Blood Urea Nitrogen 24 mg/dL (7-17); Calcium 7.4 mg/dL (8.4-10.2); Carbon Dioxide 25 mmol/L (22-30); Chloride 99 mmol/L (98-107); Estimated CRCL calculation 15 ml/min; Estimated Glomerular Filt Rate 15; Glucose 119 mg/dL (65-110); Sodium 135 mmol/L (137-145)
[2021-05-15 12:05] LABS: Glucose Point of Care 114 mg/dl (65-105)
[2021-05-15 12:30] LABS: Folic Acid 9.8 ng/mL (2.76->20); Vitamin B12 > 1000.0 pg/mL (239-931)
--- NOTE | 2021-05-15 14:26 | ECG_ITS ---
Measurements Intervals [place] Rate: 97 P: 52 MT: 191 QRS: -19 QRSD: 100 T: 6 QT: 378 QTc: 482 Interpretive Statements SINUS RHYTHM BORDERLINE T WAVE ABNORMALITY- INFERIOR LEADS BASELINE ARTIFACT- I, II, III, AVR, AVL, AVF, V1-V6 BORDERLINE ECG Electronically Signed On 05-15-2021 16:28:18 [employer] by Zoran Drake D.O.
[2021-05-15 15:30] LABS: Lipase 17 U/L (23-300)
[2021-05-15 15:31] LABS: Ammonia < 9 umol/L (9-30)
[2021-05-15 15:32] LABS: Alveolar/Arterial O2 Gradient 102.7 mmHg; Base Excess ABG -0.3 mEq/l (+/-2.0); Carboxyhemoglobin 0.3 % THb (0-2.0); Device NASAL CANNULA; Fractional Inspired Oxygen 40 %; HCO3 ABG 25.5 mEq/l (22.0-26.0); Methemoglobin ABG 0.5 %THb (0-1.5); Modified Allen's Test Pass; Oxygen Content ABG 11.8 %vol (16.0-22.0); Oxygen Saturation ABG 98.4 % (95.0-100.0); Oxyhemoglobin 96.8 % THb (90.0-100.0); PCO2 ABG 47.6 mmHg (35.0-45.0); PO2 ABG 127.8 mmHg (80.0-100.0); Reduced Hemoglobin 2.4 %THb (0-5.0); Site Drawn LEFT BRACHIAL; Total Hemoglobin 8.5 g/dL (12.0-18.0); pH ABG 7.347 (7.350-7.450)
[2021-05-15 16:37] LABS: Glucose Point of Care 158 mg/dl (65-105)
--- NOTE | 2021-05-15 18:18 | PM.IMPN ---
Progress Note: A&P Assessment and Plan (1) Sepsis: Qualifiers: Sepsis type: sepsis due to unspecified organism Sepsis acute organ dysfunction status: unspecified Qualified Code(s): A41.9 - Sepsis, unspecified organism Code(s): A41.9 - Sepsis, unspecified organism Status: Acute Assessment and Plan: Pt was admitted with sepsis likely due to wound but could also be due to colitis or gallbladder disease -no signs of infection around her dialysis access line -She does not make urine -PNA seems to have resolved on imaging -blood cultures NGTD -pt has no diarrhea -continue zosyn, flagyl and will add vanc (2) Buttock wound: Code(s): S31.809A - Unspecified open wound of unspecified buttock, initial encounter Status: Acute Assessment and Plan: Wound noted on her left bottock and is growing pseudomonas, staph aureus, and yeast -could possibility be causing her infection/leukocytosis -Will continue zosyn, flagyl, and will add vanc -wound consult -may consider sx consult (3) End stage renal disease: Code(s): N18.6 - End stage renal disease Status: Acute Assessment and Plan: On dialysis M/W/F -continue with that (4) T2DM (type 2 diabetes mellitus): Qualifiers: Diabetes mellitus manager terminal insulin use: with chcf use Diabetes mellitus complication status: with neurologic complications Diabetes mellitus complication detail: with polyneuropathy Qualified Code(s): E11.42 - Type 2 diabetes mellitus with diabetic polyneuropathy; Z79.4 - terminal press operator (current) use of insulin Code(s): E11.9 - Type 2 diabetes mellitus without complications Status: Acute Assessment and Plan: Last glucose 158 -continue SSI and lantus (5) Sinus tachycardia: Code(s): R00.0 - Tachycardia, unspecified Status: Acute Assessment and Plan: Intermittent, could be due to infection -no CP -EKG ordered today showed sinus rhythm without significant abnormalities -monitor (6) Liver cirrhosis: Code(s): K74.60 - Unspecified cirrhosis of liver Status: Acute Assessment and Plan: Known -Ammonia normal on admission -will try lactulose (7) Colitis: Code(s): K52.9 - Noninfective gastroenteritis and colitis, unspecified Status: Acute Assessment and Plan: Possible colitis on CT -seems unlikely this mild colitis would cause her sepsis symptoms -monitor (8) Abnormal CT scan, gallbladder: Code(s): R93.2 - Abnormal findings on diagnostic imaging of liver and biliary tract Status: Acute Assessment and Plan: Distended gallbladder on CT. Unlikely source of infx but pt was tender on admission -will do HIDA scan (9) Acute metabolic encephalopathy: Code(s): G93.41 - Metabolic encephalopathy Status: Acute Assessment and Plan: Unclear etiology -could be due to infection as above -she also has been on xanax in the past which was stopped and granddaughter was unsure if she was still taking it. withdraw? -will check TSH tomorrow -Head CT without acute pathology -Ammonia level normal -abg noted, will turn down o2 to avoid increase in co2 -monitor Additional Plan Patient requires 2 L of oxygen at baseline since her cardiac procedures in February. It appears that she has had valvular surgery recently and a possible ID. She is currently on Brilinta Time Spent With Patient Time with patient: 25 - 35 minutes Subjective Date/time seen: 05/15/21 18:18 Interval history: Pt is a 70-year-old female here for altered mental status. Patient was alert and oriented x4 but was not always appropriate and I am uncertain if she fully understood my questions. She states that she has pain everywhere and that she wants us to leave her alone. Review of Systems Review of Systems: All systems reviewed & are unremarkable except as noted in HPI and be
[2021-05-15] MEDS: LORazepam INJ (*CRX) 2 MG/ML VIAL 0.5 MG IV PUSH (18:34)
[2021-05-15] MEDS: PREGABALIN (*CRX) 25 MG CAPSULE PO (22:30)
[2021-05-15] MEDS: ROSUVASTATIN 10 MG TABLET PO (22:30)
[2021-05-15] MEDS: traZODone HCL 50 MG TABLET PO (22:31)
[2021-05-15 22:40] LABS: Glucose Point of Care 152 mg/dl (65-105)
[2021-05-16] MEDS: metroNIDAZOLE 500 MG/ISO 100ML 500 MG/100 ML BAG 100 MG IVPB ×2 (00:50→05:50)
[2021-05-16 02:42] VITALS: PULSE 110; RESP 20
[2021-05-16] MEDS: ALBUTEROL SULFATE NEB 2.5 MG/3 ML INH 1.25 MG INHALATION (02:42)
[2021-05-16 02:51] VITALS: PULSE 115; RESP 20
[2021-05-16] MEDS: LEVOTHYROXINE SODIUM 100 MCG, LEVOTHYROXINE SODIUM 75 MCG 175 MCG PO (05:58)
[2021-05-16 06:22] VITALS: BP 130/81; PULSE 106; RESP 18; TEMP 36.1; O2SAT 95
[2021-05-16 06:58] LABS: Hematocrit 27.8 % (37.0-47.0); Hemoglobin 8.5 g/dL (12.0-15.0); Mean Corpuscular HGB Conc 30.6 g/dl (32-36); Mean Corpuscular Hemoglobin 32.7 pg (26-34); Mean Corpuscular Volume 106.9 fl (80-100); Mean Platelet Volume 11.1 fl (7.4-10.4); Platelet Count Result 147 k/mm3 (150-375); Red Cell Distribution Width 15.9 % (11.5-14.5); White Blood Count 29.8 K/mm3 (4.5-10.0)
--- NOTE | 2021-05-16 07:07 | PM.PNNEP ---
Subjective Date/time seen: 05/16/21 07:07 pt very confused and picking at her sheets- will try SEROQUEL Objective Data Vital Signs Vital Signs: Vital Signs - 24 hr 05/15/21 07:45 05/15/21 07:46 05/15/21 07:55 Temperature Pulse Rate 138 H 100 80 Respiratory Rate 26 H 22 H 20 Blood Pressure Pulse Oximetry 85 L 100 92 05/15/21 12:00 05/15/21 13:55 05/15/21 14:00 Temperature 36.4 C Pulse Rate 128 H 116 H 137 H Respiratory Rate 20 20 24 H Blood Pressure 117/66 112/62 Pulse Oximetry 90 90 05/15/21 14:05 05/15/21 20:00 05/15/21 23:18 Temperature 36.6 C Pulse Rate 123 H 115 H 110 H Respiratory Rate 20 20 20 Blood Pressure 105/55 L Pulse Oximetry 95 94 05/15/21 23:58 05/16/21 02:42 05/16/21 02:51 Temperature Pulse Rate 110 H 115 H Respiratory Rate 20 20 Blood Pressure Pulse Oximetry 95 05/16/21 06:22 Temperature 36.1 C L Pulse Rate 106 H Respiratory Rate 18 Blood Pressure 130/81 Pulse Oximetry 95 Intake/Output Intake/Output: Intake & Output 05/13/21 05/14/21 05/15/21 05/16/21 23:59 23:59 23:59 23:59 Intake Total 910 710 910 250 Output Total 0 1628 Balance 910 -918 910 250 Meds/Results Medications: Active Medications Generic Name Dose Route Start Last Admin Trade Name Rock PRN Reason Stop Dose Admin Acetaminophen 650 mg 05/13/21 07:22 05/13/21 12:54 Acetaminophen 325 Mg Tablet PO 650 mg Q6H PRN Administration Pain (Scale Score 1-3) Albuterol 1.25 mg 05/13/21 09:40 05/16/21 02:42 Albuterol Sulfate Neb 2.5 Mg/3 Ml Inh INHALATION 1.25 mg Q6HRT MONSERRAT Administration Allopurinol 100 mg 05/13/21 09:00 05/15/21 09:26 Allopurinol 100 Mg Tablet PO 100 mg DAILY MONSERRAT Administration Ascorbic Acid 500 mg 05/13/21 09:00 05/15/21 09:26 Ascorbic Acid 500 Mg Tablet PO 500 mg QAM [place]ERRAT Administration Aspirin 81 mg 05/13/21 08:00 05/15/21 09:24 Aspirin 81 Mg Chewable Tablet PO 81 mg DAILY@0800 [place]SERRAT Administration Collagenase 1 applic 05/13/21 09:00 05/15/21 09:28 Collagenase Oint 30 Gm Tube TOPICAL 1 applic DAILY MONSERRAT Administration Dextrose 12.5 gm 05/13/21 08:02 Dextrose 50% 25 Gm/50 Ml Syringe IV PUSH PRN PRN Hypoglycemia Protocol Dicyclomine HCl 20 mg 05/13/21 09:00 05/15/21 17:40 Dicyclomine Hcl 10 Mg Capsule PO Not Given TID MONSERRAT Diphenhydramine HCl 25 mg 05/13/21 08:26 Diphenhydramine Hcl Cap 25 Mg Capsule PO HS PRN Insomnia Glucagon 1 mg 05/13/21 08:02 Glucagon For Inj 1 Mg Vial IM PRN PRN Hypoglycemia Protocol Glucose 15 gm 05/13/21 08:02 Glucose Oral Gel 15 Gm Of Glucse In 37.5 Gm Tube PO PRN PRN Hypoglycemia Protocol Piperacillin Sod/Tazobactam Sod 2.25 gm in 50 mls @ 100 mls/hr 05/13/21 05:00 05/16/21 06:53 Zosyn 2.25 Gm/D5w 50 Ml IVPB Infused Q8H [facility] Infusion Piperacillin Sod/Tazobactam 50 mls @ 50 mls/hr 05/14/21 18:00 05/14/21 21:00 Sod 0.75 gm/ Dextrose IVPB Infused [id number] [facility] Infusion Dextrose 1,000 mls @ 100 mls/hr 05/13/21 08:02 Dextrose 5% 1,000 Ml IVPB PRN PRN Hypoglycemia Protocol Metronidazole 500 mg in 100 mls @ 100 mls/hr 05/15/21 18:00 05/16/21 06:52 Flagyl 500 Mg/Iso Soln 100 Ml IVPB Infused Q6HR [facility] Infusion Vancomycin HCl 1,250 mg in 250 mls @ 200 mls/hr 05/15/21 14:32 Vancomycin 1,250 Mg/D5w 250 Ml IVPB PRN PRN vancomycin protocol Insulin Aspart 3 - 6 units 05/13/21 12:00 05/15/21 17:20 Insulin Aspart (*Bkc) 100 Units/Ml SUB-Q Not Given TIDWM [facility] Protocol Insulin Glargine 4 units 05/13/21 21:00 05/16/21 02:53 Insulin Glargine (*Bkc) 100 Units/Ml SUB-Q Not Given HS [facility] Lactulose 20 gm 05/16/21 09:00 Lactulose 20 Gm/30 Ml Udc PO QAM [facility] Levothyroxine Sodium 100 mcg/ 175 mcg 05/13/21 06:30 05/16/21 05:58 Levothyroxine Sodium 75 mcg PO 175 mcg DAILY@0630 [facility]
[2021-05-16 07:17] LABS: Alanine Aminotransferase 11 U/L (4-35); Albumin Level 2.4 g/dL (3.5-5.1); Alkaline Phosphatase 173 U/L (38-126); Aspartate Amino Transferase 20 U/L (14-36); Bilirubin Direct 0.3 mg/dL (0-0.3); Bilirubin,Total 1.4 mg/dL (0.2-1.3); Magnesium 2.1 mg/dL (1.6-2.3); Phosphorus 6.1 mg/dL (2.5-4.5)
[2021-05-16 07:29] LABS: Anion Gap 12 mmol/L (8-16); Blood Urea Nitrogen 33 mg/dL (7-17); Calcium 7.5 mg/dL (8.4-10.2); Carbon Dioxide 25 mmol/L (22-30); Chloride 101 mmol/L (98-107); Estimated CRCL calculation 13 ml/min; Estimated Glomerular Filt Rate 12; Glucose 171 mg/dL (65-110); Potassium 4.6 mmol/L (3.4-5.0); Sodium 138 mmol/L (137-145)
[2021-05-16 07:40] LABS: CRP 30.8 mg/dL (<1.0)
--- NOTE | 2021-05-16 07:57 | PC.NURSE ---
Pt transferred to nuclear medicine via stretcher at 0736.
[2021-05-16 08:00] VITALS: PULSE 92
[2021-05-16 08:01] LABS: Thyroid Stimulating Hormone Reflex 0.203 uIU/mL (0.465-4.68)
--- NOTE | 2021-05-16 08:25 | PCOTNOTE ---
Attempted to see patient this AM. Patient is out of room.
[2021-05-16 08:55] LABS: Free T4 Free Thyroxine Reflex 2.24 ng/dL (0.78-2.19)
--- NOTE | 2021-05-17 09:00 | PM.DDS ---
Discharge Summary Date and Time Date of : 05/16/21 Time of : 08:23 Provider Pronounced By: Dr. Hahn Probable Cause of Probable Cause of : severe sudden bradycardia resulting in cardiac arrest 2/2 to infection Summary Hospital Course: DOS 05/16/21 Patient was a 70-year-old female who presented emergency room on 05/13/2021 for altered mental status. She had a history of end-stage renal disease on dialysis, recent valvular surgery in the last 3 months, COPD, NATALI, cirrhosis, sarcoidosis, and diabetes. Vitals in the ER were temperature 37.2? C, pulse 94, respiratory rate 17, blood pressure 124/66, pulse ox 97 on room air. Initial white blood cell count 29.1, hemoglobin 8.6, hematocrit 27.6, platelets 113. BMP consistent with end-stage dialysis abnormalities. Chest x-ray showed cardiomegaly with small left pleural effusion and resolution of previously seen left lower lobe consolidation. Head CT showed no acute findings. Abdominal pelvis CT showed possible mild colonic colitis, distended gallbladder with debris or small stones unchanged, cirrhosis, splenomegaly, small says ascites and pleural effusions. Patient was admitted to the hospitalist service and started on Zosyn and Flagyl. Patient did not improve on this regimen and vancomycin was started. Infection source could have been from her buttocks wound but could not rule out gallbladder disease. The day after adding the vancomycin, her white blood cell count worsened. HIDA scan was ordered. Before the HIDA scan the patient's vitals were stable but during the scan the patient went unresponsive. Telemetry shows that she started having significant bradycardia which resulted in cardiac arrest. The patient was a DNR and no resuscitation measures were performed. I spoke with the family personally and gave my condolences and answered all of their questions. Spoke with Dr. Espinosa about plan of care. Additional Data Confirmation of as documented by pronouncing clinician: Pupillary Reflex, Palpable Pulses, Response to Stimuli, Heart Tones and Breath Sounds Name of Provider Notified: Dr. Espinosa Time Provider Notified: 08:25 Provider Requests Autopsy: No Family Requests Autopsy: No Record Press Supervisor Notified: Yes Date [facility] Notified of : 05/16/21 Time [facility] Notified of : 09:15
== END 2021-05-16 08:23 | disposition expired | DRG 871 ==
LOC: ANHED 16:10 → ANHIMU 05-14 09:08 → ANH3MEDSUR 05-15 06:59 → ANHIMU 05-18 15:44
PROVIDERS: Internal Medicine Nephrology; Admitting Provider Internal Medicine; Emergency Provider Emergency Medicine; PCP Family Medicine; Visit Provider Physician Assistant
DX: A41.9 Sepsis, unspecified organism (principal); N18.6 End stage renal disease; J18.9 Pneumonia, unspecified organism; G93.41 Metabolic encephalopathy; I13.2 Hypertensive heart and chronic kidney disease with heart failure and with stage 5 chronic kidney disease, or end stage renal disease; I50.32 Chronic diastolic (congestive) heart failure; J44.0 Chronic obstructive pulmonary disease with (acute) lower respiratory infection; S31.829A Unspecified open wound of left buttock, initial encounter; Z20.822 Contact with and (suspected) exposure to COVID-19; K52.9 Noninfective gastroenteritis and colitis, unspecified; R93.2 Abnormal findings on diagnostic imaging of liver and biliary tract; I46.9 Cardiac arrest, cause unspecified; Z66 Do not resuscitate; E11.22 Type 2 diabetes mellitus with diabetic chronic kidney disease; Z99.2 Dependence on renal dialysis; E11.42 Type 2 diabetes mellitus with diabetic polyneuropathy; E11.51 Type 2 diabetes mellitus with diabetic peripheral angiopathy without gangrene; I25.10 Atherosclerotic heart disease of native coronary artery without angina pectoris; D86.9 Sarcoidosis, unspecified; K74.60 Unspecified cirrhosis of liver; E66.9 Obesity, unspecified; G47.33 Obstructive sleep apnea (adult) (pediatric); D63.8 Anemia in other chronic diseases classified elsewhere; I95.9 Hypotension, unspecified; K43.9 Ventral hernia without obstruction or gangrene; K80.20 Calculus of gallbladder without cholecystitis without obstruction; R10.30 Lower abdominal pain, unspecified; Z79.02 Long term (current) use of antithrombotics/antiplatelets; Z79.899 Other long term (current) drug therapy; Z86.718 Personal history of other venous thrombosis and embolism; Z86.73 Personal history of transient ischemic attack (TIA), and cerebral infarction without residual deficits; Z99.3 Dependence on wheelchair
CPT/HCPCS: 36415; 36600; 70450; 71045; 74176; 78226; 80048; 80053; 80069; 80076; 82140; 82375; 82607; 82746; 82805; 82948; 83050; 83605; 83690; 83735; 84100; 84439; 84443; 84484; 85025; 85027; 85610; 85730; 86140; 86706; 87040; 87070; 87077; 87186; 87205; 87340; 87426; 93005; 94640; 96365; 96375; 97162; 97166; 99285; A9270; A9537; C9803; G0257; J1644; J1815; J2060; J2270; J2405; J2543; J3370; J7030; Q5105; U0003; U0005